=== PATIENT | female | born 1950 | race Caucasian/White ===

== ENCOUNTER → 2016-12-24 | Outpatient (CLI) | payer MEDICARE ==
--- NOTE | 2016-12-24 13:11 | XR ---
EXAMINATION TYPE: XR KUB DATE OF EXAM: 12/24/2016 11:30 AM CLINICAL DATA: 66 year-old female follow-up of bilateral lithotripsy, [facility] COMPARISON: None FINDINGS: Nonobstructive bowel gas pattern. There is mild stool within the ascending colon. Suggestion of bilateral calcific densities projecting at both sides of the midabdomen. Largest measur es 8 mm on the right. Densities within the pelvis likely represent tablets. Degenerated levoconvex scoliosis of the lumbar spine. IMPRESSION: Findings suggest bilateral nephrolithiasis, largest measuring 8 mm on the right.
== END | disposition home or self-care (01) ==
LOC: RADXRMAIN 11:13
PROVIDERS: ATTEND Urology
DX: N20.0 Calculus of kidney (principal)
CPT/HCPCS: 74000

== ENCOUNTER → 2016-12-28 | Outpatient (CLI) | payer MEDICARE ==
[~2016-12-28] MED LIST: DENOSUMAB 60 MG/ML 1 ML SYRINGE SQ ONE
[2016-12-28 13:56] VITALS: BP 113/58; PULSE 58; RESP 16; TEMP 98.4
== END | disposition home or self-care (01) ==
LOC: PROCWHC3 13:29
PROVIDERS: ATTEND Family Medicine
DX: M81.0 Age-related osteoporosis without current pathological fracture (principal)
CPT/HCPCS: 96372

== ENCOUNTER → 2017-02-03 | Outpatient (CLI) | payer MEDICARE ==
--- NOTE | 2017-02-03 16:49 | XR ---
EXAMINATION TYPE: XR KUB DATE OF EXAM: 02/03/2017 COMPARISON: 12/24/2016 HISTORY: Right-sided renal calculus. TECHNIQUE: 2 views FINDINGS: There is an 8 mm calcification over the lower pole right kidney. There is no sign of intest inal obstruction or pneumoperitoneum. There is mild lumbar levoscoliosis. There is no sign of a mass. There is a 4 mm calcification over the lower pole right kidney. IMPRESSION: Right renal calculi. No change compared to last exam. Nonacute abdomen.
== END | disposition home or self-care (01) ==
LOC: RADXRMAIN 16:28
PROVIDERS: ATTEND Urology
DX: N20.0 Calculus of kidney (principal)
CPT/HCPCS: 74000

== ENCOUNTER → 2017-02-03 | Outpatient (CLI) | payer MEDICARE ==
--- NOTE | 2017-02-04 13:12 | MM ---
Reason for exam: screening (asymptomatic). Last mammogram was performed 1 year and 1 month ago. History: Patient is postmenopausal. Physical Findings: A clinical breast exam by your physician is recommended on an annual basis and results should be correlated with mammographic findings. MG 3D Screening Mammo W/Cad Bilateral CC and MLO view(s) were taken. Prior study comparison: January 16, 2016, bilateral MG 3d screening mammo w/cad. January 14, 2015, bilateral MG diagnostic mammo w CAD MEG. February 13, 2014, bilateral MG diagnostic mammo w CAD MEG. There are scattered fibroglandular densities. No significant changes when compared with prior studies. ASSESSMENT: Negative, BI-RAD 1 RECOMMENDATION: Routine screening mammogram of both breasts in 1 year.
== END | disposition home or self-care (01) ==
LOC: RADMAMWWP 16:39
PROVIDERS: ATTEND Internal Medicine Geriatric Medicine
DX: Z12.31 Encounter for screening mammogram for malignant neoplasm of breast (principal)
CPT/HCPCS: 77063; G0202

== ENCOUNTER → 2017-04-06 | Outpatient (CLI) | payer MEDICARE ==
--- NOTE | 2017-04-06 11:03 | XR ---
EXAMINATION TYPE: XR KUB DATE OF EXAM: 04/06/2017 COMPARISON: 02/03/2017 INDICATION: Renal stones TECHNIQUE: Single view abdomen supine FINDINGS: There is a normal bowel gas pattern. Psoas margins are normal. No organomegaly is present. There is a 0.7 x 0. 5 cm calcification mid right kidney. Couple punctate calcifications are inferior pole right kidney. There are scattered small calcifications overlying the inferior pole left kidney. No definite ureteral stones are identified. Bullous are within the pelvis appear stable. IMPRESSION: 1. Stable bilateral renal stones. The largest in the right mid kidney measures 0.7 x 0.5 cm.
== END | disposition home or self-care (01) ==
LOC: RADXRMAIN 10:02
PROVIDERS: ATTEND Urology
DX: N20.0 Calculus of kidney (principal)
CPT/HCPCS: 74000

== ENCOUNTER → 2017-07-01 | Outpatient (CLI) | payer MEDICARE ==
[2017-07-01 11:42] VITALS: BP 127/63; PULSE 71; RESP 16; TEMP 98.1
== END | disposition home or self-care (01) ==
LOC: PROCWHC3 11:24
PROVIDERS: ATTEND Internal Medicine Geriatric Medicine
DX: M81.0 Age-related osteoporosis without current pathological fracture (principal)
CPT/HCPCS: 96372; J0897

== ENCOUNTER → 2017-07-20 | Outpatient (CLI) | payer MEDICARE ==
--- NOTE | 2017-07-20 08:24 | US ---
EXAMINATION TYPE: US abdomen complete DATE OF EXAM: 07/20/2017 COMPARISON: Abdominal x-ray April 06, 2017. CLINICAL HISTORY: Abnormal liver R94.5 function studies. EXAM MEASUREMENTS: Liver Length: 16.0 cm Gallbladder Wall: 0.4 cm CBD: 0.4 cm Spleen: 8.7 cm Right Kidney: 10.2 x 5.4 x 6.1 cm Left Kidney: 11.6 x 4.8 x 5.8 cm Pancreas: Obscured by bowel gas Liver: Increased attenuation Gallbladder: No stones seen Evidence for sonographic Dia's sign: no CBD: wnl Spleen: wnl Right Kidney: No hydronephrosis or masses seen Left Kidney: No hydronephrosis or masses seen Upper IVC: wnl Abd Aorta: Obscured by overlying bowel gas The visualized liver is heterogeneously hyperechoic. Evaluation for focal masses is suboptimal due t o the heterogeneity. The intrahepatic portion of the IVC and visualized portions of abdominal aorta a re within normal limits. Heart surface. By overlying bowel gas. There is no evidence of cholelithias is. Common bile duct is unremarkable. The pancreas is suboptimally evaluated due to shadowing from overlying bowel gas. The spleen is unremarkable. Kidneys are symmetric and free of hydronephrosis. Lobulation of left kidney is seen. Cannot exclude solid partial exophytic mass upper to mid pole leve l left kidney. Technologist notes a few nonshadowing hypoechoic foci in both kidneys could reflect re nal calculi IMPRESSION: 1. Bilateral renal calculi felt redemonstrated though better seen on x-ray, more numerous smaller radha culi in left kidney on x-ray are noted. Cannot rule out solid mass in left kidney. Further investigat ion with renal protocol contrast-enhanced CT or MRI is advised. 2. Heterogeneous hyperechoic appearance of liver is consistent with diffuse fatty infiltration or und erlying hepatocellular disease. Imaging guided random biopsy for tissue analysis can be performed if desired.
== END ==
LOC: RADUSWWP 07:04
PROVIDERS: ATTEND Internal Medicine Geriatric Medicine
DX: N20.0 Calculus of kidney (principal); R94.5 Abnormal results of liver function studies
CPT/HCPCS: 76700

== ENCOUNTER → 2017-12-22 | Outpatient (CLI) | payer MEDICARE ==
--- NOTE | 2017-12-22 15:50 | CT ---
EXAMINATION TYPE: CT abdomen wo/w con DATE OF EXAM: 12/22/2017 COMPARISON: NONE HISTORY: Abnormal liver enzymes. Cystic kidney disease. CT DLP: 1728 mGycm Automated exposure control for dose reduction was used. TECHNIQUE: Helical acquisition of images was performed from the lung bases through the top of iliac crest to include entire abdomen. CONTRAST: Performed with Oral Contrast and without and with IV Contrast, patient injected with 100 mL of Isovue M300. FINDINGS: LUNG BASES: No significant abnormality is appreciated. LIVER/GB: There is evidence of hepatic steatosis. Multiple layering gallstones. No hepatic lesions. PANCREAS: No significant abnormality is seen. SPLEEN: No significant abnormality is seen. ADRENALS: No significant abnormality is seen. KIDNEYS: Multiple nonobstructing renal calculi are seen bilaterally. No hydronephrosis is submitted. Renal parenchymal thinning noted within the mid to lower pole of the right kidney compatible with za or insult. No solid or cystic renal mass is detected at this time. BOWEL: No significant abnormality is seen. LYMPH NODES: No significant abnormality is seen. OSSEOUS STRUCTURES: No significant abnormality is seen. FREE AIR: No free air is visualized. IMPRESSION: 1. Bilateral nonobstructing nephrolithiasis. No hydronephrosis or renal masses seen. 2. Hepatic steatosis. 3. Small layering gallstones.
== END | disposition home or self-care (01) ==
LOC: RADCTMAIN 14:36
PROVIDERS: ATTEND Internal Medicine Geriatric Medicine
DX: N20.0 Calculus of kidney (principal); K76.0 Fatty (change of) liver, not elsewhere classified; K80.20 Calculus of gallbladder without cholecystitis without obstruction
CPT/HCPCS: 74170; Q9967

== ENCOUNTER → 2018-01-02 | Outpatient (CLI) | payer MEDICARE ==
[2018-01-02 09:31] VITALS: BP 114/74; PULSE 75; RESP 16; TEMP 98.2
== END | disposition home or self-care (01) ==
LOC: PROCWHC3 08:59
PROVIDERS: ATTEND Internal Medicine Geriatric Medicine
DX: Z53.9 Procedure and treatment not carried out, unspecified reason (principal)
CPT/HCPCS: 96372

== ENCOUNTER → 2018-02-09 | Outpatient (CLI) | payer MEDICARE ==
--- NOTE | 2018-02-10 11:03 | MM ---
Reason for exam: screening (asymptomatic). Last mammogram was performed 1 year ago. History: Patient is postmenopausal. Physical Findings: A clinical breast exam by your physician is recommended on an annual basis and results should be correlated with mammographic findings. MG 3D Screening Mammo W/Cad Bilateral CC and MLO view(s) were taken. Prior study comparison: February 03, 2017, bilateral MG 3d screening mammo w/cad. January 16, 2016, bilateral MG 3d screening mammo w/cad. The breast tissue is heterogeneously dense. This may lower the sensitivity of mammography. There is no discrete abnormality. No significant changes when compared with prior studies. ASSESSMENT: Negative, BI-RAD 1 RECOMMENDATION: Routine screening mammogram of both breasts in 1 year.
== END | disposition home or self-care (01) ==
LOC: RADMAMWWP 09:58
PROVIDERS: ATTEND Internal Medicine Geriatric Medicine
DX: Z12.31 Encounter for screening mammogram for malignant neoplasm of breast (principal)
CPT/HCPCS: 77063; 77067

== ENCOUNTER → 2018-04-19 | Outpatient (CLI) | payer MEDICARE ==
--- NOTE | 2018-04-19 15:12 | XR ---
EXAMINATION TYPE: XR chest 2V DATE OF EXAM: 04/19/2018 COMPARISON: 02/27/2016 INDICATION: Cough and congestion x1 month TECHNIQUE: Frontal and lateral views of the chest are obtained. FINDINGS: The heart size is normal. The pulmonary vasculature is normal. The lungs are clear. IMPRESSION: 1. No acute pulmonary process.
== END ==
LOC: RADXRMAIN 14:32
PROVIDERS: ATTEND Internal Medicine Geriatric Medicine
DX: J18.9 Pneumonia, unspecified organism (principal)
CPT/HCPCS: 71046

== ENCOUNTER → 2018-04-24 | Outpatient (CLI) | payer MEDICARE ==
--- NOTE | 2018-04-24 10:09 | CT ---
EXAMINATION TYPE: CT chest wo con DATE OF EXAM: 04/24/2018 COMPARISON: 11/10/2009, chest x-ray 04/19/2018 HISTORY: Pneumonia CT DLP: 504 mGycm. Automated Exposure Control for Dose Reduction was Utilized. TECHNIQUE: CT scan of the thorax is performed without IV contrast. FINDINGS: LUNGS: The lungs are grossly clear, there is no concerning parenchymal mass or nodule identified. T here is no pleural effusion or pneumothorax seen. The tracheobronchial tree is patent. Calcified gra nuloma within the left lower lobe. MEDIASTINUM: Lack of IV contrast is noted to limit evaluation for mediastinal and especially hilar ad enopathy. There are no definitive greater than 1 cm hilar or mediastinal lymph nodes. No cardiomega ly or pericardial effusion is seen. Atherosclerosis of the aorta noted. Coronary artery calcification noted. OTHER: Hypertrophic and degenerative change of the spine. Scoliotic curvature. Left-sided nephrolithi asis. Liver reduced in attenuation correlate for hepatic steatosis. IMPRESSION: 1. No acute intrathoracic process. 2. Left lower lobe calcified granuloma there are 3 left renal calculus 4. Hepatic steatosis
== END ==
LOC: RADCTMAIN 09:20
PROVIDERS: ATTEND Internal Medicine Geriatric Medicine
DX: J84.10 Pulmonary fibrosis, unspecified (principal)
CPT/HCPCS: 71250

== ENCOUNTER → 2018-12-15 | Outpatient (CLI) | payer MEDICARE ==
[2018-12-15 10:38] VITALS: BP 122/76; PULSE 60; RESP 18; TEMP 97.5
== END | disposition home or self-care (01) ==
LOC: PROCWHC3 10:27
PROVIDERS: ATTEND Internal Medicine Geriatric Medicine
DX: M81.0 Age-related osteoporosis without current pathological fracture (principal)
CPT/HCPCS: 96372; J0897

== ENCOUNTER → 2018-12-19 | Outpatient (CLI) | payer MEDICARE ==
--- NOTE | 2018-12-19 11:31 | XR ---
EXAMINATION TYPE: XR KUB DATE OF EXAM: 12/19/2018 10:00 AM CLINICAL HISTORY: Follow-up from right lithotripsy TECHNIQUE: Single supine KUB image of the abdomen is obtained. COMPARISON: 04/06/2017. FINDINGS: The previously seen 2-3 right renal calculi now appear as fragmented calculi. The largest o f these measures 7 mm and there are approximately 10 right renal calculi with approximately 7 left re nal calculi measuring up to 3 mm. The phleboliths in the pelvis and atherosclerosis appears similar t o the prior 2016. No new calcifications are seen along the courses of the ureters. No dilated bowel. Levoscoliosis of the lumbar spine is noted with moderate degenerative changes of the osseous structur es. IMPRESSION: Multiple bilateral renal calculi measuring up to 7 mm on the right and 3 mm on the left. The previously seen right renal calculi now appear fragmented. No new calculi along the courses of th e ureters.
== END | disposition home or self-care (01) ==
LOC: RADXRMAIN 09:42
PROVIDERS: ATTEND Urology
DX: N20.0 Calculus of kidney (principal)
CPT/HCPCS: 74018

== ENCOUNTER → 2018-12-27 | Outpatient (CLI) | payer MEDICARE ==
--- NOTE | 2018-12-27 15:32 | CT ---
EXAMINATION TYPE: CT abdomen pelvis wo con DATE OF EXAM: 12/27/2018 COMPARISON: 12/22/2017 HISTORY: Right flank pain with history of prior stones. CT DLP: 344.7 mGycm Examination of the solid and hollow viscera is limited given the lack of contrast. FINDINGS: LUNG BASES: No evidence for nodule. No evidence for infiltrate. LIVER/GB: There is evidence of cholelithiasis. No wall thickening. No space-occupying hepatic lesion. PANCREAS: No pancreatic mass identified. No inflammatory process seen. SPLEEN: No evidence for splenomegaly. No intrasplenic lesions seen. ADRENALS: No adrenal nodules identified. No evidence for thickening. KIDNEYS: No evidence for renal mass. Bilateral nephrolithiasis noted. Cluster of calculi lower pole r ight kidney with the largest calculus measuring 4 mm. Largest calculus upper pole right kidney measur es 7.1 mm. Largest calculus left kidney midpole measures 5.1 mm. Renal parenchymal thinning. BOWEL: Appendix has a normal appearance. No evidence of bowel obstruction. No inflammatory process. Lymph nodes: No evidence for adenopathy greater than 1 cm. Abdominal aorta: Atheromatous changes seen. No evidence for aneurysm. Genital organs: No significant abnormality. Other: No significant abnormality. IMPRESSION: 1. Bilateral nonobstructing nephrolithiasis.
== END ==
LOC: RADCTMAIN 11:23
PROVIDERS: ATTEND Urology
DX: N20.0 Calculus of kidney (principal); Z91.041 Radiographic dye allergy status
CPT/HCPCS: 74176

== ENCOUNTER → 2019-03-29 | Outpatient (CLI) | payer MEDICARE ==
--- NOTE | 2019-04-03 09:43 | MM ---
Reason for exam: screening (asymptomatic). Last mammogram was performed 1 year and 2 months ago. History: Patient is postmenopausal. Physical Findings: A clinical breast exam by your physician is recommended on an annual basis and results should be correlated with mammographic findings. MG 3D Screening Mammo W/Cad Bilateral CC and MLO view(s) were taken. Prior study comparison: February 09, 2018, bilateral MG 3d screening mammo w/cad. February 03, 2017, bilateral MG 3d screening mammo w/cad. There are scattered fibroglandular densities. There is chronic nodularity in the left breast on the MLO view. No significant changes when compared with prior studies. ASSESSMENT: Benign, BI-RAD 2 RECOMMENDATION: Routine screening mammogram of both breasts in 1 year.
== END | disposition home or self-care (01) ==
LOC: RADMAMWWP 12:06
PROVIDERS: ATTEND Internal Medicine Geriatric Medicine
DX: Z12.31 Encounter for screening mammogram for malignant neoplasm of breast (principal)
CPT/HCPCS: 77063; 77067

== ENCOUNTER → 2019-04-04 | Outpatient (CLI) | payer MEDICARE ==
[2019-04-04 16:51] LABS: African American GFR (CKD) 75.1 (60.0-200.0); Calcium 9.4 mg/dL (8.7-10.3); Phosphorus 4.2 mg/dL (2.4-5.1); Potassium 4.2 mmol/L (3.5-5.5); Uric Acid 4.9 mg/dL (2.9-7.7)
== END | disposition home or self-care (01) ==
LOC: LABWHC1 07:33
PROVIDERS: ATTEND Urology
DX: N20.0 Calculus of kidney (principal)
CPT/HCPCS: 36415; 82310; 82374; 82435; 82565; 83735; 84100; 84132; 84295; 84550

== ENCOUNTER → 2019-06-18 | Outpatient (CLI) | payer MEDICARE ==
--- NOTE | 2019-06-19 04:16 | BD ---
EXAMINATION TYPE: Axial Bone Density DATE OF EXAM: 06/18/2019 COMPARISON: 07/02/2013 CLINICAL HISTORY: 68-year-old female postmenopausal screening Height: 61 IN Weight: 161 LBS RISK FACTORS HISTORY OF: Family History of Osteoporosis: YES MOTHER AND SISTER Active: YES Diet low in dairy products/other sources of calcium: YES Postmenopausal woman: AGE 53 Lost more than 2 inches in height since high school: YES 3" MEDICATIONS: Osteoporosis Medications: YES Which medication: Prolia How Lon+ YEARS(PT TOOK RECLAST AND FOSAMAX PREVIOUSLY Additional Medications: CALCIUM, VIT D, RECLAST, FIBER WELL,CENTRUM SILVER, LEXAPRO, ASPIRIN, BIOTIN, PRILOSEC, LOTREL, PRAVASTATIN, PROBIOTIC, POTASSIUM CITRATE EXAM MEASUREMENTS: Bone mineral densitometry was performed using the [employer] System. Bone mineral density as measured about the Lumbar spine is: ----- L1-L4(G/cm2): 1.294 T Score Values are as follows: ----- L2: -0.4 ----- L3: 1.4 ----- L4: 2.4 ----- L1-L4: 0.9 Bone mineral density has: Increased 11.1% since study of: 07/02/2013 Bone mineral density about the R hip (g/cm2): 0.760 Bone mineral density about the L hip (g/cm2): 0.766 T Score values are as follows: -----R Neck: -2.0 -----L Neck: -2.0 -----R Total: -1.4 -----L Total: -1.5 Bone mineral density has: Increased 0.1% since study of: 07/02/2013 IMPRESSION: Osteopenia (T Score between -2.5 and -1). There is slightly increased risk of fracture and the patient may be considered for treatment. Re-Screen 2-5 years. NOTE: T-SCORE=SD OF THE YOUNG ADULT MEAN.
== END | disposition home or self-care (01) ==
LOC: RADBDWWP 10:44
PROVIDERS: ATTEND Internal Medicine Geriatric Medicine
DX: M85.88 Other specified disorders of bone density and structure, other site (principal); R92.8 Other abnormal and inconclusive findings on diagnostic imaging of breast
CPT/HCPCS: 77080

== ENCOUNTER → 2019-06-18 | Outpatient (CLI) | payer MEDICARE ==
[2019-06-18 10:28] VITALS: BP 104/67; PULSE 67; RESP 16; TEMP 98.3
== END ==
LOC: PROCWHC3 10:02
PROVIDERS: ATTEND Internal Medicine Geriatric Medicine
DX: M81.0 Age-related osteoporosis without current pathological fracture (principal)
CPT/HCPCS: 96372; J0897

== ENCOUNTER → 2019-12-13 | Outpatient (CLI) | payer MEDICARE ==
--- NOTE | 2019-12-13 15:41 | XR ---
EXAMINATION TYPE: XR KUB DATE OF EXAM: 12/13/2019 3:25 PM CLINICAL HISTORY: Bilateral renal stones. TECHNIQUE: Single supine KUB image of the abdomen is obtained. COMPARISON: CT abdomen and pelvis December 27, 2018. Abdominal x-ray December 19, 2018. FINDINGS: Redemonstration of bilateral renal calculi approximately 20 small scattered stones through the left kidney and 10 scattered calculi through the right kidney on current study. Larger calculi on the right up to 8 mm lower pole level and 10 and 11 mm upper pole level. Some progression in number felt present from prior studies. Underlying S-shaped scoliosis with multilevel spurring and disc space narrowing. Scattered pelvic phl eboliths. IMPRESSION: Bilateral nephrolithiasis as detailed above.
== END | disposition home or self-care (01) ==
LOC: RADXRMAIN 15:13
PROVIDERS: ATTEND Urology
DX: N20.0 Calculus of kidney (principal)
CPT/HCPCS: 74018

== ENCOUNTER → 2019-12-18 | Outpatient (CLI) | payer MEDICARE ==
[~2019-12-18] MED LIST changes: +DENOSUMAB 60 MG/ML 1 ML SYRINGE SQ NR; -DENOSUMAB 60 MG/ML 1 ML SYRINGE SQ ONE
[2019-12-18 12:59] VITALS: BP 106/70; PULSE 78; RESP 18; TEMP 98
== END | disposition home or self-care (01) ==
LOC: PROCWHC3 12:48
PROVIDERS: ATTEND Internal Medicine Geriatric Medicine
DX: M81.0 Age-related osteoporosis without current pathological fracture (principal)
CPT/HCPCS: 96372; J0897

== ENCOUNTER → 2020-04-04 | Outpatient (CLI) | payer MEDICARE ==
--- NOTE | 2020-04-09 09:10 | MM ---
Reason for exam: screening (asymptomatic). Last mammogram was performed 1 year ago. History: Patient is postmenopausal. Physical Findings: A clinical breast exam by your physician is recommended on an annual basis and results should be correlated with mammographic findings. MG 3D Screening Mammo W/Cad Bilateral CC and MLO view(s) were taken. Prior study comparison: March 29, 2019, bilateral MG 3d screening mammo w/cad. February 09, 2018, bilateral MG 3d screening mammo w/cad. There are scattered fibroglandular densities. No significant changes when compared with prior studies. ASSESSMENT: Benign, BI-RAD 2 RECOMMENDATION: Routine screening mammogram of both breasts in 1 year.
== END | disposition home or self-care (01) ==
LOC: RADMAMWWP 08:22
PROVIDERS: ATTEND Internal Medicine Geriatric Medicine
DX: Z12.31 Encounter for screening mammogram for malignant neoplasm of breast (principal)
CPT/HCPCS: 77063; 77067

== ENCOUNTER → 2020-04-10 | Outpatient (CLI) | payer MEDICARE ==
--- NOTE | 2020-04-10 10:23 | XR ---
EXAMINATION TYPE: XR KUB DATE OF EXAM: 04/10/2020 HISTORY: Pain Comparison: 12/13/19 Single KUB is submitted for interpretation. Findings: Right renal calculi: Numerous calcifications seen too numerous to count. Right ureteral calculi: None Visualized. Left renal calculi: Numerous calcifications seen too numerous to count. Left ureteral calculi: None Visualized. Pelvic calcifications: None Visualized. Bowel gas pattern is unremarkable. No free air. No mass effects. IMPRESSION: 1. Bilateral nephrolithiasis.
== END | disposition home or self-care (01) ==
LOC: RADXRMAIN 09:51
PROVIDERS: ATTEND Urology
DX: N20.0 Calculus of kidney (principal)
CPT/HCPCS: 74018

== ENCOUNTER → 2020-06-23 | Outpatient (CLI) | payer MEDICARE ==
[2020-06-23 08:42] VITALS: BP 116/77; PULSE 73; RESP 16
== END | disposition home or self-care (01) ==
LOC: PROCWHC3 08:32
PROVIDERS: ATTEND Internal Medicine Geriatric Medicine
DX: M81.0 Age-related osteoporosis without current pathological fracture (principal)
CPT/HCPCS: 96372; J0897

== ENCOUNTER → 2020-12-23 | Outpatient (CLI) | payer MEDICARE ==
[2020-12-23 07:43] VITALS: BP 107/56; PULSE 69; RESP 15; TEMP 97.7
== END | disposition home or self-care (01) ==
LOC: PROCWHC3 07:32
PROVIDERS: ATTEND Internal Medicine Geriatric Medicine
DX: M81.0 Age-related osteoporosis without current pathological fracture (principal)
CPT/HCPCS: 96372; J0897

== ENCOUNTER → 2020-12-23 | Outpatient (CLI) | payer MEDICARE ==
--- NOTE | 2020-12-23 11:04 | XR ---
EXAMINATION TYPE: XR KUB DATE OF EXAM: 12/23/2020 8:07 CLINICAL HISTORY: Bilateral renal calculi TECHNIQUE: Single supine KUB image of the abdomen is obtained. COMPARISON: 04/10/2020 . FINDINGS: Nonspecific, nonobstructive bowel gas pattern. There are multiple bilateral renal calculi t hroughout the kidneys. One of the largest at the right upper pole measures 9 mm, stable. 5 mm calcifi cations project at the L2-3 level on the left suggestive of possible ureteral calculi. Multiple presu med pelvic calcified phleboliths. Degenerative changes of the lumbar spine with levocurvature. Mild d egenerative changes of the hips. IMPRESSION: 1. Numerous bilateral renal calculi are visualized. 2. 2 5 mm adjacent calculi are seen projecting at the left L2-3 level. These are suggestive of possib le ureteral calculi.
== END | disposition home or self-care (01) ==
LOC: RADXRMAIN 07:50
PROVIDERS: ATTEND Urology
DX: N20.0 Calculus of kidney (principal)
CPT/HCPCS: 74018

== ENCOUNTER → 2021-02-04 | Outpatient (CLI) | payer MEDICARE ==
[2021-02-04 08:31] VITALS: BP 113/75; PULSE 65; RESP 18; TEMP 98.1
--- NOTE | 2021-02-04 09:00 | P.PAINCN ---
History of Present Illness - Reason for Consult Consult date: 02/04/21 - History of Present Illness This is 70 years old female with a chronic history of severe low back pain, with radiations to the lower extremity, started more than 5 years ago, patient diagnosed with lumbar degenerative disc disease, lumbar spondylosis with lumbar facet arthropathy, was treated at [facility], (Dr Aguilera, and Dr. Graf, ) she had, excellent response to RFA of the medial branch lumbar a sonia, and the last one was done, june of 2020, the RFA helped her low back pain significantly, and patient had transforaminal epidural steroid injection which helped her lower extremity pain, the patient complaining of severe low back pain which is increased with any activity interfere with the quality of life, patient tried home exercise, continued to have severe pain, denies any motor or sensory deficit she denies any fever or night sweats which she denies any change in the bowel movement or urination Past Medical History Past Medical History: GERD/Reflux, Hyperlipidemia, Hypertension Additional Past Medical History / Comment(s): back pain, hx migraines, kidney stones,osteoporosis History of Any Multi-Drug Resistant Organisms: None Reported Past Surgical History: Section, Orthopedic Surgery Additional Past Surgical History / Comment(s): rt wrist, 8 surgeries for kidney stones,pain procedures,jairo cataracts. Past Anesthesia/Blood Transfusion Reactions: Motion Sickness Smoking Status: Never smoker - Past Family History Father Family Medical History: Myocardial Infarction ([place]) Additional Family Medical History / Comment(s): multiple MIs Medications and Allergies Home Medications Medication Instructions Recorded Confirmed Type Aspirin 81 mg PO DAILY 06/10/14 02/04/21 History Pravastatin Sodium [Pravachol] 20 mg PO HS 06/10/14 02/04/21 History Calcium Carbonate [Calcium] 600 mg PO DAILY 02/25/16 02/04/21 History Cholecalciferol [Vitamin D3 (25 1,000 unit PO DAILY 02/25/16 02/04/21 History Mcg = 1000 Iu)] Celecoxib [CeleBREX] 100 mg PO BID 12/23/20 02/04/21 History Biotin 5 mg PO DAILY 02/03/21 02/04/21 History Denosumab [Prolia] 60 mg SQ Q180D 02/03/21 02/04/21 History Escitalopram [Lexapro] 10 mg PO DAILY 02/03/21 02/04/21 History Lit Control Ph Balance Supp 1 tab PO BID 02/03/21 02/04/21 History Multivit-Min/Iron/Folic/Lutein 1 tab PO DAILY 02/03/21 02/04/21 History [Centrum Silver Women Tablet] Omeprazole [PriLOSEC] 20 mg PO BID 02/03/21 02/04/21 History Spironolactone [Aldactone] 12.5 mg PO DAILY 02/03/21 02/04/21 History Allergies Allergy/AdvReac Type Severity Reaction Status Date / Time Iodinated Contrast Media Allergy Rash/Hives Verified 02/03/21 15:47 Physical Exam Vitals: Vital Signs Temp Pulse Resp BP Pulse Ox 02/04/21 08:18 98.1 F 65 18 113/75 96 Intake and Output 02/03/21 02/04/21 02/04/21 22:59 06:59 14:59 Other: Weight 70.307 kg Physical Examinations : -Constitutiona : Cooperative , not in acute distress . -HEENT : nech : supple , no Lymphadenopathy , normal thyroid size . : eyes : no ptosis , no icterus, no photophobia . - neurologic : Cranial nerve II to XII intact , no focal neurological deffecit . -psychatric : alert , oriented X 3 , appropriate affect , intact judgment and insight . -Lymphatic : no Lymphadenopathy . - musculoskeltal : Lumber spine moter stegnth lower extremities ,thigh and legs 5/5 Right side , 5/5 Left side deep tendon reflexes : normal Knee Jerk , normal ankle Jerk lumber facet Loading Test =positive Right , positive Left Range of motion of the lumbar spine Flexion 30 degrees, extension 10 degrees strait leg raising test = positive at 60 degree Fabere test= positive Right , and positive LT . Results Comments: MRI of the lumbar spine multilevel lumbar degenerative disc disease and multilevel lumbar facet arthropathy Assessment and Plan Plan: Assessment and plan=1-lumbar spondylosis with lumbar facet arthropathy without myelopathy. 2-Lumbar degenerative disc disease. She had excellent response to RFA of the medial branch lumbar area , last year and she would be good candidate to have a repeat RFA Scheduled for RFA medial branch at L3, L4, L5 bilateral Time with Patient: Greater than 30 PQRS Measure Charge Sheet Measure #130: Documentation of Current Meds in Medical Chart: Patient's medications documented in chart Measure #226: Tobacco Use: Screen & Cessation Intervention: Pt not a tobacco user Measure #111: Pneumonia Vaccination: Pneumococcal vaccine administered or previously received Measure #47: Advance Care Plan: Advance care planning discussed & documented, pt chose/unable to give Measure #412: Opioid Treatment Agreement: No documentation of signed opioid treatment agreement Measure #408: Opioid Therapy Follow-up Evaluation: Patient had NO f/u eval minimum every 3 months during opioid therapy Measure #317: Preventitive Care & Scrn High Bld Press & F/U: Normal blood pressure, f/u not required Measure #128: Body Mass Index (BMI) Screening & Follow-up: BMI documented ABOVE normal parameters - f/u documented Measure #131: Pain Assessment & Follow-up: Pain positive & plan documented, Follow-up scheduled Measure #431: Unhealthy Alcohol Use Preventative Care & Scrn: Patient not identified as an unhealthy alcohol user PQRS Narrative: Smoking Status Never smoker Blood Pressure 113/75 Pain Intensity [Back] 4 Scale Used Numeric (1 - 10) Home Medications: Ambulatory Orders Aspirin 81 mg PO DAILY 06/10/14 Pravastatin Sodium [Pravachol] 20 mg PO HS 06/10/14 Calcium Carbonate [Calcium] 600 mg PO DAILY 02/25/16 Cholecalciferol [Vitamin D3 (25 Mcg = 1000 Iu)] 1,000 unit PO DAILY 02/25/16 Celecoxib [CeleBREX] 100 mg PO BID 12/23/20 Biotin 5 mg PO DAILY 02/03/21 Denosumab [Prolia] 60 mg SQ Q180D 02/03/21 Escitalopram [Lexapro] 10 mg PO DAILY 02/03/21 Lit Control Ph Balance Supp 1 tab PO BID 02/03/21 Multivit-Min/Iron/Folic/Lutein [Centrum Silver Women Tablet] 1 tab PO DAILY 02/03/21 Omeprazole [PriLOSEC] 20 mg PO BID 02/03/21 Spironolactone [Aldactone] 12.5 mg PO DAILY 02/03/21
== END ==
LOC: PNWHC3 08:10
PROVIDERS: ATTEND Specialist
DX: M47.816 Spondylosis without myelopathy or radiculopathy, lumbar region (principal); M51.36 Other intervertebral disc degeneration, lumbar region; K21.9 Gastro-esophageal reflux disease without esophagitis; E78.5 Hyperlipidemia, unspecified; I10 Essential (primary) hypertension; Z91.041 Radiographic dye allergy status; Z79.899 Other long term (current) drug therapy
CPT/HCPCS: 99211

== ENCOUNTER 2021-03-06 07:57 | Day surgery (SDC) | payer MEDICARE ==
[2021-03-04 14:09] VITALS: BMI 28.3
[~2021-03-06 07:57] MED LIST changes: -DENOSUMAB 60 MG/ML 1 ML SYRINGE SQ NR; +LACTATED RINGERS 1,000 ML IV SCH
[2021-03-06 08:27] VITALS: TEMP 97.7
[2021-03-06] MEDS ORDERED: LIDOCAINE 1% (10MG/ML) FOR IV START INTRADERMA ONE (08:31)
[2021-03-06] MEDS ORDERED: fentaNYL (PF) 50 MCG/ML 2 ML AMP ONE (08:34)
[2021-03-06] MEDS ORDERED: methylPREDNISolone ACETATE 40 MG/ML 1 ML VIAL ONE (08:34)
[2021-03-06] MEDS ORDERED: ROPIVACAINE 5MG/ML 20ML VIAL ONE (08:34)
[2021-03-06] MEDS ORDERED: MIDAZOLAM 2 MG/2 ML VIAL ONE (08:34)
--- NOTE | 2021-03-06 09:07 | P.PCN ---
Date of Procedure: 03/06/21 Procedure(s) Performed: PREOPERATIVE DIAGNOSIS: 1-Lumbar Spondylosis with Facet Arthropathy without myelopathy. 2- Lumber degenerative disc disease. POSTOPERATIVE DIAGNOSIS: 1- Lumbar Spondylosis with Facet Arthropathy without myelopathy. 2- Lumber degenerative disc disease. PROCEDURES : Bilateral Radiofrequency thermocoagulation, L3 , L4 , and L5 medial branch, with fluoroscopic guidance (fluoroscopy images available in the radiology department) ( to denervate the facet joint at L4-5 ,and L5-S1 levels ). ANESTHESIA: Monitored anesthesia care aspirin anesthesia department . EBL: Minimal PROCEDURE INDICATION: The patient with low back pain secondary to lumbar facet arthropathy who had more than 50% relief of her pain with previous diagnostic lumbar medial branch block with bupivacaine. PROCEDURE DESCRIPTION / TECHNIQUE: The patient was seen and identified in the preoperative area. Risks, benefits, complications, including but not limited to risk of infection ,bleeding , allergic reactions to the medications and no complete pain releife , and alternatives were discussed with the patient, the patient agreed to proceed with the procedure and signed the consent. IV was started. Vital signs remained stable throughout the procedure. Patient was taken to the OR and time out was completed. The patient was placed in the prone position on the procedure table. The lumber area was prepped and draped in the usual sterile fashion. . Vital signs were closely monitored during the procedure .IV sedation was used during the procedure to decrease patients anxiety. Using AP and then oblique fluoroscopy, the ``eye of the Bridger dog correspondi ng to the connection between the superior and transverse articular processes of right L3, L4, and L5 were identified, marked, and localized with 1% lidocaine. Subsequently, a 18 -xe radiofrequency cannula with a 10-mm active tip was advanced guided by fluoroscopy to each of the``eyes of the Bridger dog at right L3, L4, and L5. Each site then underwent sensory testing at 50 Hz and 0 to 1 volt and motor testing at 2.5 Hz and 0 to 3 volt with local stimulation, but no radicular symptoms down the legs. Thereafter each sites underwent radiofrequency thermocoagulation at 80 degrees celsius for 90 seconds after injecting 0.5 ml of PF Ropivacaine 1ml, then after the thermocoagulation done , 1 ml of the block solution containing Depo-Medrol 40 mg and 3 ml of Ropivacaine 0.5% was injected at the right L3 , L4 , and L5 , levels after negative aspiration of CSF and blood and with no paresthesias. Cannulas were retracted while injecting lidocaine 1% until the needle is out. The same procedure was repeated at the level of Left L3, L4, and L5 levels. At the end of the procedure, the skin was cleansed and bandages were applied. COMPLICATIONS: No acute complications. DISPOSITION / PLANS: The patient was placed in a supine position and transferred to the recovery area in a stable condition for observation and was discharged from the recovery room after meeting discharge criteria. Home discharge instructions given to the patient by the staff. The patient was reexamined prior to discharge. The patient will schedule a follow up in the clinic in 2-4 weeks.
[2021-03-06] MEDS ORDERED: IV FLUID CONTINUATION 700 ML IV ONE (09:10)
[2021-03-06 09:14] VITALS: RESP 16
[2021-03-06 09:26] VITALS: BP 105/65; PULSE 60
--- NOTE | 2021-03-06 09:36 | FL ---
Fluoroscopy INDICATION: Pain FINDINGS: Fluoroscopy time: 13 seconds. Images obtained: 7. IMPRESSIONS: 1. Documentation of fluoroscopy.
== END 2021-03-06 09:47 | disposition home or self-care (01) ==
LOC: ORPAIN 07:57
PROVIDERS: ATTEND Specialist
DX: M47.816 Spondylosis without myelopathy or radiculopathy, lumbar region (principal); M51.36 Other intervertebral disc degeneration, lumbar region; I10 Essential (primary) hypertension; E78.5 Hyperlipidemia, unspecified; G43.909 Migraine, unspecified, not intractable, without status migrainosus; K21.9 Gastro-esophageal reflux disease without esophagitis; Z79.82 Long term (current) use of aspirin
CPT/HCPCS: 64635; 64636; J2250; J1030; J3010; J2795

== ENCOUNTER → 2021-03-27 | Outpatient (CLI) | payer MEDICARE ==
--- NOTE | 2021-03-27 12:56 | XR ---
KUB HISTORY: Nephrolithiasis Frontal KUB and 2 images correlated to prior exam 12/23/2020 Multiple calcifications are present within both kidneys as on prior exam. Largest calcification in th e upper pole the right is 11 mm. There are at least 10-15 calcifications on the left and 10-15 calcif ications on the right. There is a scoliosis with degenerative disc disease. Probable vascular calcifi cations are present within the pelvis. IMPRESSION: Bilateral nephrolithiasis similar to prior exam.
== END | disposition home or self-care (01) ==
LOC: RADXRMAIN 09:32
PROVIDERS: ATTEND Urology
DX: N20.0 Calculus of kidney (principal)
CPT/HCPCS: 74018

== ENCOUNTER → 2021-03-27 | Outpatient (CLI) | payer MEDICARE ==
--- NOTE | 2021-03-27 17:41 | CT ---
EXAMINATION TYPE: CT abdomen pelvis wo con DATE OF EXAM: 03/27/2021 COMPARISON: 04/29/2019 HISTORY: Bilateral flank pain x1 week. CT DLP: 440.8 mGycm Automated exposure control for dose reduction was used. Lung bases are clear. There is no pleural effusion. Heart size is normal. There is no pericardial eff usion. There is minimal coronary artery calcification. Liver spleen stomach pancreas appear intact. There are multiple calcified gallstones. The bile ducts are nondilated. There is no adrenal mass. There are numerous bilateral renal calculi that measure up to 6 mm. There i s variable cortical thinning in the right kidney consistent with scarring. There is a 6 mm calculus a t the left ureteropelvic junction. There is minimal fullness of the left renal collecting system. The re is also some fullness of the right ureter and 5 mm obstructing calculus in the lower right ureter at the S1 level. There is also 2 additional 6 mm calculi in the lower right ureter at the inferior sa basil level. There are multiple sigmoid diverticula. I see no diverticulitis. There is no inguinal hernia. Bladder distends smoothly. There is no pelvic mass. Appendix is not definitely seen. There is no sign of thi ckened appendix. There is mild lumbar levoscoliosis. There is multilevel lumbar spondylotic changes. The bony pelvis is intact. IMPRESSION: Numerous bilateral renal calculi. Obstructing several calculi in the lower right ureter. Mild hydrone phrosis. Obstructing calculus at the left ureteropelvic junction. Obstruction appears new compared to old exam. Calculi increased in size and number compared to old exam. Deformity of the right kidney consistent with scarring and chronic pyelonephritis. Cholelithiasis. Sigmoid diverticulosis.
== END | disposition home or self-care (01) ==
LOC: RADCTMAIN 16:41
PROVIDERS: ATTEND Urology
DX: N13.2 Hydronephrosis with renal and ureteral calculous obstruction (principal); K80.20 Calculus of gallbladder without cholecystitis without obstruction; K57.30 Diverticulosis of large intestine without perforation or abscess without bleeding
CPT/HCPCS: 74176

== ENCOUNTER → 2021-03-30 | Outpatient (CLI) | payer MEDICARE ==
[2021-03-30 13:11] VITALS: BP 112/71; PULSE 74; RESP 18; TEMP 98.1
--- NOTE | 2021-03-30 13:20 | P.PAINPG ---
Subjective Progress Note Date: 03/30/21 This is 70 years old female with a chronic history of severe low back pain, with radiations to the lower extremity, started more than 5 years ago, patient diagnosed with lumbar degenerative disc disease, lumbar spondylosis with lumbar facet arthropathy, was treated at [facility], (Dr Aguilera, and Dr. Graf, ) she had, excellent response to RFA of the medial branch lumbar area, and the last one was done, june of 2020, the RFA helped her low back pain significantly, and patient had transforaminal epidural steroid injection which helped her lower extremity pain, the patient complaining of severe low back pain which is increased with any activity interfere with the quality of l bakari, patient tried home exercise, continued to have severe pain, denies any motor or sensory deficit she denies any fever or night sweats which she denies any change in the bowel movement or urination. We repeated bilateral L4-L5 and L5-S1 radiofrequency ablation for her. Patient says that overall she had good relief from the ablation. About 70-80% relief. This is the third ablation she had, commenting that the second ablation that she received at another center causes her to have significantly worsening pain. She asked why that is. I explained to her the concept of possible muscle soreness or neuritis secondary curve from a radiofrequency ablation and having general is very difficult to prevent, but did note that these complications are usually pretty rare. She also had a bilateral L5-S1 transforaminal epidural steroid injection with Dr. Aguilera in December of this year which was helpful, she was wondering if she could repeat those with us as needed. Physical Examinations : -Constitutiona : Cooperative , not in acute distress . -HEENT : nech : supple , no Lymphadenopathy , normal thyroid size . : eyes : no ptosis , no icterus, no photophobia . - neurologic : Cranial nerve II to XII intact , no focal neurological deffecit . -psychatric : alert , oriented X 3 , appropriate affect , intact judgment and insight . -Lymphatic : no Lymphadenopathy . - musculoskeltal : Lumber spine moter stegnth lower extremities ,thigh and legs 5/5 Right side , 5/5 Left side deep tendon reflexes : normal Knee Jerk , normal ankle Jerk lumber facet Loading Test =negative Range of motion of the lumbar spine Flexion 30 degrees, extension 10 degrees strait leg raising test = negative Fabere test= negative Results Comments: MRI of the lumbar spine multilevel lumbar degenerative disc disease and multilevel lumbar facet arthropathy Assessment and Plan Plan: Assessment and plan=1-lumbar spondylosis with lumbar facet arthropathy without myelopathy. 2-Lumbar degenerative disc disease. Doing well at this time, she'll follow-up as needed. I told her she can call us if she would like to repeat her bilateral L5-S1 transforaminal epidural steroid injections. I have spent 25 minutes on patient care today. The time was used to review the medical records including relevant urine studies and prescription history, review of the available imaging, evaluation and examination of the patient, coordination of care with the medical staff and if applicable referring physicians, as well as creation of the medical record. PQRS Measure Charge Sheet Measure #130: Documentation of Current Meds in Medical Chart: Patient's medications documented in chart Measure #226: Tobacco Use: Screen & Cessation Intervention: Pt not a tobacco user Measure #111: Pneumonia Vaccination: Pneumococcal vaccine administered or previously received Measure #47: Advance Care Plan: Advance care planning discussed & documented, pt chose/unable to give Measure #412: Opioid Treatment Agreement: No documentation of signed opioid treatment agreement Measure #408: Opioid Therapy Follow-up Evaluation: Patient had NO f/u eval minimum every 3 months during opioid therapy Measure #317: Preventitive Care & Scrn High Bld Press & F/U: Normal blood pressure, f/u not required Measure #128: Body Mass Index (BMI) Screening & Follow-up: BMI documented ABOVE normal parameters - f/u documented Measure #131: Pain Assessment & Follow-up: Pain positive & plan documented, Follow-up scheduled Measure #431: Unhealthy Alcohol Use Preventative Care & Scrn: Patient not identified as an unhealthy alcohol user PQRS Narrative: PQRS Measure Charge Sheet PQRS Narrative: Smoking Status Never smoker Pain Intensity [Back] 4 Scale Used Numeric (1 - 10) Hx Alcohol Use (MH) Yes Home Medications: Ambulatory Orders Aspirin 81 mg PO DAILY 06/10/14 Pravastatin Sodium [Pravachol] 20 mg PO HS 06/10/14 Calcium Carbonate [Calcium] 600 mg PO DAILY 02/25/16 Cholecalciferol [Vitamin D3 (25 Mcg = 1000 Iu)] 1,000 unit PO DAILY 02/25/16 Celecoxib [CeleBREX] 100 mg PO BID 12/23/20 Biotin 5 mg PO DAILY 02/03/21 Denosumab [Prolia] 60 mg SQ Q180D 02/03/21 Escitalopram [Lexapro] 10 mg PO DAILY 02/03/21 Lit Control Ph Balance Supp 1 tab PO BID 02/03/21 Multivit-Min/Iron/Folic/Lutein [Centrum Silver Women Tablet] 1 tab PO DAILY 02/03/21 Omeprazole [PriLOSEC] 20 mg PO BID 02/03/21 Spironolactone [Aldactone] 12.5 mg PO DAILY 02/03/21 Controlled Substance Measures - Controlled Substance Measures Is patient prescribed a controlled substance at discharge?: No
== END ==
LOC: PNWHC3 12:58
PROVIDERS: ATTEND Anesthesiology
DX: M47.816 Spondylosis without myelopathy or radiculopathy, lumbar region (principal); M51.36 Other intervertebral disc degeneration, lumbar region; Z91.041 Radiographic dye allergy status
CPT/HCPCS: 99211

== ENCOUNTER 2021-04-01 08:59 | Day surgery (SDC) | payer MEDICARE ==
--- NOTE | 2021-03-31 20:50 | P.GSHP ---
History of Present Illness H&P Date: 03/31/21 70 yo female with a history of medullary sponge kidney and stones. about 10 days ago she started having let flank pain A kub showed bilateral renal stones without obvious ureteral stones. Because of persistent pain a ct scan was obtained identifying a 6 mm left upj stone. there may also be right ureteral stones. tani the let upj stone is symptomatic she comes for left ureteroscopy with laser lithotripsy. I wll also do a right retrograde pyelogram and possible ureterscopy f there are stones in the right ureter too - Constitutional Constitutional: Denies chills, Denies fever - EENT Eyes: denies blurred vision, denies pain Ears, nose, mouth and throat: Denies headache, Denies sore throat - Cardiovascular Cardiovascular: Denies chest pain, Denies shortness of breath - Respiratory Respiratory: Denies cough, Denies 7 - Gastrointestinal Gastrointestinal: Denies abdominal pain, Denies diarrhea, Denies nausea, Denies vomiting - Genitourinary (Female) Genitourinary: Denies dysuria, Denies hematuria - Genitourinary (Male) Genitourinary: Denies dysuria, Denies hematuria - Musculoskeletal Musculoskeletal: Denies myalgias - Integumentary Integumentary: Denies pruritus, Denies rash - Neurological Neurological: Denies numbness, Denies weakness - Psychiatric Psychiatric: Denies anxiety, Denies depression - Endocrine Endocrine: Denies fatigue, Denies weight change Past Medical History Past Medical History: GERD/Reflux, Hyperlipidemia, Hypertension Additional Past Medical History / Comment(s): back pain, hx migraines, kidney stones,osteoporosis History of Any Multi-Drug Resistant Organisms: None Reported Past Surgical History: Section, Orthopedic Surgery Additional Past Surgical History / Comment(s): rt wrist, 8 surgeries for kidney stones,pain procedures,jairo cataracts. Past Anesthesia/Blood Transfusion Reactions: Motion Sickness Past Psychological History: No Psychological Hx Reported Smoking Status: Never smoker Past Alcohol Use History: Occasional Past Drug Use History: None Reported - Past Family History Father Family Medical History: Myocardial Infarction ([place]) Additional Family Medical History / Comment(s): multiple MIs Medications and Allergies Home Medications Medication Instructions Recorded Confirmed Type Aspirin 81 mg PO DAILY 06/10/14 03/30/21 History Pravastatin Sodium [Pravachol] 20 mg PO HS 06/10/14 03/30/21 History Calcium Carbonate [Calcium] 600 mg PO DAILY 02/25/16 03/30/21 History Cholecalciferol [Vitamin D3 (25 1,000 unit PO DAILY 02/25/16 03/30/21 History Mcg = 1000 Iu)] Celecoxib [CeleBREX] 100 mg PO BID 12/23/20 03/30/21 History Biotin 5 mg PO DAILY 02/03/21 03/30/21 History Denosumab [Prolia] 60 mg SQ Q180D 02/03/21 03/30/21 History Escitalopram [Lexapro] 10 mg PO DAILY 02/03/21 03/30/21 History Lit Control Ph Balance Supp 1 tab PO BID 02/03/21 03/30/21 History Multivit-Min/Iron/Folic/Lutein 1 tab PO DAILY 02/03/21 03/30/21 History [Centrum Silver Women Tablet] Omeprazole [PriLOSEC] 20 mg PO BID 02/03/21 03/30/21 History Spironolactone [Aldactone] 12.5 mg PO DAILY 02/03/21 03/30/21 History Allergies Allergy/AdvReac Type Severity Reaction Status Date / Time Iodinated Contrast Media Allergy Rash/Hives Verified 03/30/21 14:02 Surgical - Exam - General well developed, well nourished, no distress - Eyes PERRL - ENT no hearing loss - Neck trachea midline - Respiratory normal expansion, normal respiratory effort - Cardiovascular Rhythm: regular - Abdomen Abdomen: soft, non tender - Neurologic normal coordination, normal sensation - Musculoskeletal normal gait, normal posture - Psychiatric oriented to time, oriented to person, oriented to place, speech is normal, memory intact Results - Imaging Abdominal x-ray: report reviewed, image reviewed CT scan - abdomen: report reviewed, image reviewed CT scan - pelvis: report reviewed, image reviewed Assessment and Plan Assessment: Impression: Medullary sponge kidney with stones. Symptomatic left ureteral stone. Possible right ureteral stone Plan: left ureteroscopy with laser lithotripsy, possible stent. right retrograde pyelogram with possible ureteroscopy.laser lithotripsy and possible stent.
[~2021-04-01 08:59] MED LIST changes: +HYDROmorphone 0.5 MG/0.5 ML SYRINGE IVP PRN; -LACTATED RINGERS 1,000 ML IV SCH; +LIDOCAINE 1% (10MG/ML) FOR IV START INTRADERMA PRN; +ONDANSETRON 4 MG/2 ML VIAL IVP ONE
--- NOTE | 2021-04-01 09:23 | XR ---
EXAMINATION TYPE: XR KUB DATE OF EXAM: 04/01/2021 HISTORY: Pain Comparison: 03/27/2021 Single KUB is submitted for interpretation. Findings: Right renal calculi: Multiple right-sided renal calculi noted of the largest of which is seen within the upper pole and measures 9 mm. Innumerable sub-5 mm calculi seen throughout the right kidney. Right ureteral calculi: I cannot exclude distal ureteral calculi measuring up to 3.2 mm. Left renal calculi: Numerous left-sided renal calculi with the largest calculus seen within the mid pole measuring 5.2 mm. Left ureteral calculi: None Visualized. Pelvic calcifications: Multiple pelvic calcifications redemonstrated. Bowel gas pattern is unremarkable. No free air. No mass effects. IMPRESSION: 1. Nephrolithiasis as discussed.
[2021-04-01] MEDS ORDERED: LACTATED RINGERS 1,000 ML IV ONE ×2 (09:33→15:40)
[2021-04-01 09:51] LABS: Basophils % (A) 1 %; Eosinophils # (A) 0.4 k/uL (0-0.7); Eosinophils % (A) 4 %; HCT 44.1 % (34.0-46.0); HGB 14.3 gm/dL (11.4-16.0); Lymphocytes # (A) 1.8 k/uL (1.0-4.8); Lymphocytes % (A) 21 %; MCH 30.5 pg (25.0-35.0); MCHC 32.5 g/dL (31.0-37.0); MCV 93.8 fL (80.0-100.0); Mean Platelet Volume 7.7; Monocytes # (A) 0.5 k/uL (0-1.0); Monocytes % (A) 6 %; Neutrophils # (A) 5.7 k/uL (1.3-7.7); Neutrophils % (A) 66 %; Platelet Count 480 k/uL (150-450); RDW 12.9 % (11.5-15.5); WBC 8.6 k/uL (3.8-10.6)
[2021-04-01 09:52] LABS: Appearance,Urine Turbid (Clear); Bacteria,Urine Occasional /hpf; Bilirubin,Urine Negative (Negative); Blood,Urine Moderate (Negative); Color,Urine Yellow; Glucose,Urine (UA) Negative (Negative); Ketones,Urine Negative (Negative); Leukocyte Esterase,Urine Large (Negative); Mucus,Urine Rare /hpf; Nitrite,Urine Negative (Negative); Protein,Urine 2+ (Negative); RBC,Urine 79 /hpf (0-5); Specific Gravity,Urine 1.016 (1.001-1.035); Squamous Epithelial Cell,Urine 1 /hpf (0-4); Urobilinogen,Urine <2.0 mg/dL (<2.0); WBC,Urine >182 /hpf (0-5)
[2021-04-01 10:03] LABS: Calcium 9.8 mg/dL (8.4-10.2); Potassium 4.1 mmol/L (3.5-5.1)
[2021-04-01] MEDS ORDERED: PROPOFOL 10 MG/ML 20 ML VIAL IV ONE (10:15)
[2021-04-01] MEDS ORDERED: ROCURONIUM 10 MG/ML (5 ML VIAL) IV ONE (10:15)
[2021-04-01] MEDS ORDERED: fentaNYL (PF) 50 MCG/ML 2 ML AMP ONE (10:15)
[2021-04-01] MEDS ORDERED: LIDOCAINE 1% INJ 10MG/ML (20 ML MDV) ONE (10:15)
[2021-04-01] MEDS ORDERED: SUCCINYLCHOLINE CHLORIDE 100 MG/5 ML SYR IV ONE (10:15)
[2021-04-01] MEDS ORDERED: MIDAZOLAM 2 MG/2 ML VIAL ONE (10:15)
--- NOTE | 2021-04-01 11:41 | P.OP ---
Date of Procedure: 04/01/21 Preoperative Diagnosis: Bilateral ureteral and renal stones Postoperative Diagnosis: Same Procedure(s) Performed: Bilateral ureteroscopy with laser lithotripsy and stent placement Anesthesia: JAMES Surgeon: Jaden Olsen Estimated Blood Loss (ml): 0 Pathology: none sent Condition: stable Disposition: PACU Indications for Procedure: The patient is 70. She had active urolithiasis. She has a 6 mm upper ureteral stone on the left and possible stones in the right ureter she comes for cystoscopy left ureteroscopy and laser lithotripsy and possible right ureteroscopy laser lithotripsy Description of Procedure: Patient brought to the operative suite and given a general anesthetic placed lithotomy position with sterile prep and drape cystoscopy Foroblique lens and 21-Setswana sheath identifies a normal urethra. 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 Ureteral orifices are normal. The left with 35 wires passed up the left ureter. The stone in the proximal ureter is identified in the wire goes by it. The stone dislodges up in the kidney. Over the wires passed a [id number] reentry sheath. The inner sheath is removed. With the flexible ureteroscope and passed the ureteroscope up into the kidney. The ureteral stone was identified the renal pelvis and broken into tiny fragments with the 200 laser probe. She has multiple small lower pole stones that I passed the ureteroscope in each calyx and break the stones into tiny fragments. Then of the procedure I see no significant remaining stone fluoroscopically or endoscopically. Through the ureteral reentry sheath an 035 wires passed into the renal pelvis. The reentry sheath was removed and over the wires pass a 6 x 24 double-J catheter that coils in the renal pelvis and the bladder I reintroduced the cystoscope and the bladder. I passed an 035 up the ureter a nd there is an obvious obstruction of the ureter in the distal ureter. The semirigid scope up to the stone with the 200 laser probe break most distal stone. There are 2 more proximal stones with that. Through the scope I passed eventually an 035 wire up into the kidney. Then alongside the wire pass the ureteroscope and break up the remaining stones into tiny fragments and flushed out of the ureter. Over the wires and passed a 6 x 24 double-J catheter that coils in the renal pelvis and the bladder the bladder strain the patient awake and returned recovery room good condition. She'll be discharged home upon recovery and found the office in 10 days for bilateral lateral stent removal. She'll also need to have the right renal stones addressed. We will also talk about referral for more in-depth metabolic evaluation to try to slow the stone formation down.
[2021-04-01] MEDS ORDERED: ONDANSETRON 4 MG/2 ML VIAL ONE (12:27)
[2021-04-01] MEDS ORDERED: ONDANSETRON 4 MG/2 ML VIAL IVP ONE (12:32)
[2021-04-01] MEDS ORDERED: KETOROLAC 15 MG/ML 1 ML VIAL ONE (12:36)
[2021-04-01] MEDS ORDERED: KETOROLAC 15 MG/ML 1 ML VIAL IVP ONE (12:48)
--- NOTE | 2021-04-01 12:50 | FL ---
Fluoroscopy History: CYSTO LITHO LEFT CALCULI cysto litho left calculi. fl time 1 min 16 sec. tech time 1hr [address] garvin.
[2021-04-01] MEDS ORDERED: diphenhydrAMINE 50 MG/ML 1 ML VIAL ONE (15:07)
[2021-04-01] MEDS ORDERED: diphenhydrAMINE 50 MG/ML 1 ML VIAL IVP ONE (15:13)
--- NOTE | 2021-04-01 15:15 | P.PN ---
Subjective Progress Note Date: 04/01/21 The patient had fever post op I suspect the fever is urinary in origin. I will start her on rocephin and culture her urine. She will continue in the hospital.She will c/w ivf Objective - Vital Signs Vital signs: Vital Signs Temp 97.1 F L 04/01/21 11:50 Pulse 70 04/01/21 14:00 Resp 18 04/01/21 14:00 BP 96/52 04/01/21 14:00 Pulse Ox 97 04/01/21 14:00 Intake & Output 03/31/21 04/01/21 04/01/21 18:59 06:59 18:59 Intake Total 700 Output Total 101 Balance 599 Weight 70.9 kg Intake: IV 700 Output: Urine 100 Estimated Blood Loss 1 - Labs CBC & Chem 7: 04/01/21 09:40 04/01/21 09:40 Labs: Abnormal Lab Results - Last 24 Hours (Table) 04/01/21 04/01/21 04/01/21 Range/Units 09:28 09:40 09:40 Plt Count 480 H (150-450) k/uL Glucose 124 H (74-99) mg/dL Urine Appearance Turbid H (Clear) Urine Protein 2+ H (Negative) Urine Blood Moderate H (Negative) Ur Leukocyte Esterase Large H (Negative) Urine RBC 79 H (0-5) /hpf Urine WBC >182 H (0-5) /hpf Urine WBC Clumps Many H (None) /hpf Urine Bacteria Occasional H (None) /hpf Urine Mucus Rare H (None) /hpf
[2021-04-01] MEDS ORDERED: ACETAMINOPHEN TAB 325 MG TAB PO ONE (15:18)
[2021-04-01 16:00] LABS: Appearance,Urine Cloudy (Clear); Bacteria,Urine Rare /hpf; Bilirubin,Urine Negative (Negative); Blood,Urine Large (Negative); Color,Urine Yellow; Glucose,Urine (UA) Trace (Negative); Ketones,Urine Trace (Negative); Leukocyte Esterase,Urine Large (Negative); Mucus,Urine Rare /hpf; Nitrite,Urine Negative (Negative); PH, Urine 6.5 (5.0-8.0); Protein,Urine 1+ (Negative); RBC,Urine >182 /hpf (0-5); Specific Gravity,Urine 1.009 (1.001-1.035); Squamous Epithelial Cell,Urine <1 /hpf (0-4); Urobilinogen,Urine <2.0 mg/dL (<2.0); WBC,Urine 42 /hpf (0-5)
[2021-04-01] MEDS: LACTATED RINGERS 1,000 ML IV SCH (16:45)
[2021-04-01] MEDS: DEXTROSE 5%-0.45% NACL 1,000 ML IV SCH (17:04)
[2021-04-02] MEDS: ACETAMINOPHEN TAB 325 MG TAB PO PRN ×3 (00:26→19:54)
[2021-04-02] MEDS: MORPHINE SULFATE 2 MG/ML SYRINGE IV PRN ×2 (02:39→07:33)
[2021-04-02] MEDS ORDERED: LEVOFLOXACIN 500MG-D5W PMX 500 MG in DEXTROSE/WATER 1 100ML.BAG IVPB SCH (09:00)
[2021-04-02] MEDS: LACTATED RINGERS 1,000 ML IV SCH (09:01)
[2021-04-02] MEDS ORDERED: HYDROcodone/APAP 5-325MG 1 EACH TAB PO PRN (10:35)
--- NOTE | 2021-04-02 10:36 | P.PN ---
Progress Note - Text Progress Note Date: 04/02/21 The patient developed a fever following bilateral ureteroscopy yesterday and was admitted. She is currently afebrile. She reports pain across her lower back. She is currently receiving Levaquin, pending the urine culture result. She will be discharged home once she is more comfortable, assuming she remains afebrile.
[2021-04-02] MEDS: HYDROcodone/APAP 5-325MG 1 EACH TAB PO PRN ×2 (12:12→16:26)
[2021-04-02] MEDS: DEXTROSE 5%-0.45% NACL 1,000 ML IV SCH (14:39)
[2021-04-02] MEDS ORDERED: ONDANSETRON 4 MG/2 ML VIAL IVP PRN (15:50)
[2021-04-02] MEDS ORDERED: IBUPROFEN 400 MG TAB PO PRN (20:59)
[2021-04-03] MEDS: HYDROcodone/APAP 5-325MG 1 EACH TAB PO PRN ×3 (00:22→16:13)
[2021-04-03] MEDS: LACTATED RINGERS 1,000 ML IV SCH (06:47)
--- NOTE | 2021-04-03 07:45 | P.PN ---
Subjective Progress Note Date: 04/03/21 The patient is in her second postoperative day from bilateral ureteroscopy laser lithotripsy and stone removal. She has bilateral stents. She had postoperative urinary tract infection with sepsis. Her temperature is coming down and she is feeling better. Her appetite is slowly improving. Her vital signs are stable. If she feels well she may go home later today. Her stents will remain in 10 days. We have discussed possible referral to Medical Center for further metabolic evaluation for her recurrent stone disease. Objective - Vital Signs Vital signs: Vital Signs Temp 97.8 F 04/03/21 05:15 Pulse 59 L 04/03/21 05:15 Resp 16 04/03/21 05:15 BP 95/61 04/03/21 05:15 Pulse Ox 95 04/03/21 05:15 Intake & Output 04/02/21 04/03/21 04/03/21 18:59 06:59 18:59 Intake Total 450 Balance 450 Intake: Intake, IV Titration 450 Amount Dextrose 5%-0.45% NaCl 1, 450 000 ml @ 50 mls/hr IV . Q[facility]H [facility] Rx#:[id number] Other: Voiding Method Toilet Toilet # Voids 4 2 # Bowel Movements 0 - Labs CBC & Chem 7: 04/01/21 09:40 04/01/21 09:40
--- NOTE | 2021-04-03 07:47 | P.DS ---
Providers Attending physician: Jaden Olsen Primary care physician: [facility] Course: The patient underwent bilateral ureteroscopy to relieve her of bilateral ureteral obstruction. She had postoperative urinary tract infection with sepsis. Her temperature is coming down. She is feeling better. She is on Levaquin. If she feels well later today she'll be discharged home. She'll follow in the office in 10 days for stent removal. Postoperative instructions been given. Her diet is regular. She's been given a prescription for Levaquin and [place]. She's been instructed to contact us at any time without problems. Patient Condition at Discharge: Good Plan - Discharge Summary Discharge Rx Participant: Yes New Discharge Prescriptions: New Levofloxacin [Levaquin] 500 mg PO DAILY 1 Days #10 tab HYDROcodone/APAP 5-325MG [[place] 5-325] 1 tab PO Q4HR PRN #14 tab PRN Reason: Pain Control No Action Pravastatin Sodium [Pravachol] 20 mg PO HS Aspirin 81 mg PO DAILY Cholecalciferol [Vitamin D3 (25 Mcg = 1000 Iu)] 1,000 unit PO DAILY Calcium Carbonate [Calcium] 600 mg PO DAILY Celecoxib [CeleBREX] 100 mg PO BID Spironolactone [Aldactone] 12.5 mg PO DAILY Biotin 5 mg PO DAILY Escitalopram [Lexapro] 10 mg PO DAILY Denosumab [Prolia] 60 mg SQ Q180D Omeprazole [PriLOSEC] 20 mg PO BID Multivit-Min/Iron/Folic/Lutein [Centrum Silver Women Tablet] 1 tab PO DAILY Lit Control Ph Balance Supp 1 tab PO BID Discharge Medication List Aspirin 81 mg PO DAILY 06/10/14 [History] Pravastatin Sodium [Pravachol] 20 mg PO HS 06/10/14 [History] Calcium Carbonate [Calcium] 600 mg PO DAILY 02/25/16 [History] Cholecalciferol [Vitamin D3 (25 Mcg = 1000 Iu)] 1,000 unit PO DAILY 02/25/16 [History] Celecoxib [CeleBREX] 100 mg PO BID 12/23/20 [History] Biotin 5 mg PO DAILY 02/03/21 [History] Denosumab [Prolia] 60 mg SQ Q180D 02/03/21 [History] Escitalopram [Lexapro] 10 mg PO DAILY 02/03/21 [History] Lit Control Ph Balance Supp 1 tab PO BID 02/03/21 [History] Multivit-Min/Iron/Folic/Lutein [Centrum Silver Women Tablet] 1 tab PO DAILY 02/03/21 [History] Omeprazole [PriLOSEC] 20 mg PO BID 02/03/21 [History] Spironolactone [Aldactone] 12.5 mg PO DAILY 02/03/21 [History] HYDROcodone/APAP 5-325MG [[place] 5-325] 1 tab PO Q4HR PRN #14 tab 04/03/21 [Rx] Levofloxacin [Levaquin] 500 mg PO DAILY 1 Days #10 tab 04/03/21 [Rx] Follow up Appointment(s)/Referral(s): Jaden Olsen MD [STAFF PHYSICIAN] - 10 Days (cysto with stent removal) Patient Instructions/Handouts: *[facility] - Anesthesia Discharge Instructions, Cystoscopy (DC), Urethral Stent Placement (DC), Lithotripsy (DC) Discharge Disposition: HOME SELF-CARE
[2021-04-03] MEDS: DEXTROSE 5%-0.45% NACL 1,000 ML IV SCH (08:37)
[2021-04-03] MEDS ORDERED: LEVOFLOXACIN 500 MG TAB PO SCH (09:00)
[2021-04-03 11:15] VITALS: TEMP 98.5
[2021-04-03 11:51] VITALS: BP 96/64; PULSE 71; RESP 18
== END 2021-04-03 16:49 | disposition home or self-care (01) ==
LOC: OR 08:59 → 5NMEDONC 11:50 → OR 15:43
PROVIDERS: ATTEND Urology
DX: N20.0 Calculus of kidney (principal); Z87.442 Personal history of urinary calculi; N20.2 Calculus of kidney with calculus of ureter; K21.9 Gastro-esophageal reflux disease without esophagitis; I10 Essential (primary) hypertension; G43.909 Migraine, unspecified, not intractable, without status migrainosus; M81.0 Age-related osteoporosis without current pathological fracture; Z82.49 Family history of ischemic heart disease and other diseases of the circulatory system; Z79.899 Other long term (current) drug therapy; Z91.041 Radiographic dye allergy status
CPT/HCPCS: 80048; 85025; 81001; 87040; 87086; 87077; 87186; 74018; 52356; C2625; C1769; J2250; J1200; J2405 ×2; J0690; J1956; J2001; J0696 ×2; J3010; J2270; J1885; J0330; J2704; J1170; J1790

== ENCOUNTER → 2021-04-15 | Outpatient (CLI) | payer MEDICARE ==
--- NOTE | 2021-04-20 08:26 | MM ---
Reason for exam: screening (asymptomatic). Last mammogram was performed 1 year ago. History: Patient is postmenopausal. Physical Findings: A clinical breast exam by your physician is recommended on an annual basis and results should be correlated with mammographic findings. MG 3D Screening Mammo W/Cad Bilateral CC and MLO view(s) were taken. Prior study comparison: April 04, 2020, bilateral MG 3d screening mammo w/cad. March 29, 2019, bilateral MG 3d screening mammo w/cad. There are scattered fibroglandular densities. No significant changes when compared with prior studies. ASSESSMENT: Negative, BI-RAD 1 RECOMMENDATION: Routine screening mammogram of both breasts in 1 year.
== END | disposition home or self-care (01) ==
LOC: RADMAMWWP 12:35
PROVIDERS: ATTEND Internal Medicine Geriatric Medicine
DX: Z12.31 Encounter for screening mammogram for malignant neoplasm of breast (principal); Z78.0 Asymptomatic menopausal state
CPT/HCPCS: 77063; 77067

== ENCOUNTER → 2021-04-24 | Outpatient (CLI) | payer MEDICARE ==
--- NOTE | 2021-04-24 14:49 | XR ---
EXAMINATION TYPE: XR KUB DATE OF EXAM: 04/24/2021 HISTORY: Pain Comparison: None.Single KUB is submitted for interpretation. Findings: Right renal calculi: Multiple right-sided renal calculi measuring up to 9.4 mm. Right ureteral calculi: None Visualized. Left renal calculi: Multiple left-sided renal calculi measuring up to 4 mm. Left ureteral calculi: None Visualized. Pelvic calcifications: Multiple nonspecific pelvic calcifications. Bowel gas pattern is unremarkable. No free air. No mass effects. IMPRESSION: 1. Innumerable bilateral nephrolithiasis.
== END | disposition home or self-care (01) ==
LOC: RADXRMAIN 14:05
PROVIDERS: ATTEND Urology
DX: N20.0 Calculus of kidney (principal)
CPT/HCPCS: 74018

== ENCOUNTER → 2021-12-08 | Outpatient (CLI) | payer MEDICARE ==
[~2021-12-08] MED LIST changes: +DENOSUMAB 60 MG/ML 1 ML SYRINGE SQ NR; -HYDROmorphone 0.5 MG/0.5 ML SYRINGE IVP PRN; -LIDOCAINE 1% (10MG/ML) FOR IV START INTRADERMA PRN; -ONDANSETRON 4 MG/2 ML VIAL IVP ONE
[2021-12-08 09:14] VITALS: BP 112/71; PULSE 67; RESP 16; TEMP 98
== END ==
LOC: PROCWHC3 09:00
PROVIDERS: ATTEND Internal Medicine Geriatric Medicine
DX: M81.0 Age-related osteoporosis without current pathological fracture (principal); Z91.041 Radiographic dye allergy status
CPT/HCPCS: 96372; J0897

== ENCOUNTER → 2022-01-12 | Outpatient (CLI) | payer MEDICARE ==
--- NOTE | 2022-01-12 18:26 | XR ---
EXAMINATION TYPE: XR KUB DATE OF EXAM: 01/12/2022 Comparison: 04/24/21 Clinical History: 71 year old female N20.0 calculus Findings: Degenerative levoconvex scoliosis. Faint bilateral renal calculi. Aggregate group on the right thania ures up to 1.0cm. Multiple small calculi on the left measuring up to 7 mm and 5 mm. Nonobstructive bowel gas pattern. Mild scattered stool. Pelvic phleboliths. Impression: Bilateral renal calculi as above. Degenerative levoconvex scoliosis of the lumbar spine.
== END | disposition home or self-care (01) ==
LOC: RADXRMAIN 10:13
PROVIDERS: ATTEND Urology
DX: N20.0 Calculus of kidney (principal); M41.86 Other forms of scoliosis, lumbar region
CPT/HCPCS: 74018

== ENCOUNTER 2022-02-10 08:53 | Day surgery (SDC) | payer MEDICARE ==
[2022-02-05 13:00] VITALS: BMI 27.4
[~2022-02-10 08:53] MED LIST changes: -DENOSUMAB 60 MG/ML 1 ML SYRINGE SQ NR; +LACTATED RINGERS 1,000 ML IV SCH
[2022-02-10] MEDS ORDERED: LIDOCAINE 1% (10MG/ML) FOR IV START INTRADERMA ONE (09:48)
[2022-02-10 09:55] VITALS: RESP 16; TEMP 97.6
[2022-02-10] MEDS ORDERED: LIDOCAINE 2% INJ 20 MG/ML (2 ML VIAL) ONE (10:25)
[2022-02-10] MEDS ORDERED: PROPOFOL 10 MG/ML 20 ML VIAL IV ONE (10:25)
--- NOTE | 2022-02-10 10:37 | P.PCN ---
Date of Procedure: 02/10/22 Procedure(s) Performed: BRIEF HISTORY: Patient is a 71-year-old, pleasant, white female male scheduled for an upper endoscopy as a part of evaluation of long-standing history of GERD of 10 years duration. Currently on omeprazole 20 mg twice daily and doing well.. PROCEDURE PERFORMED: Esophagogastroduodenoscopy with biopsy. PREOPERATIVE DIAGNOSIS: Long-standing history of GERD. IV sedation per anesthesia. PROCEDURE: After informed consent was obtained, the patient was brought into the endoscopy unit. IV sedation was administered by Anesthesia under continuous monitoring. Initially the Olympus GIF-140 video endoscope was inserted into the mouth. Esophagus intubated without any difficulty. It was gradually advanced into the stomach and duodenum and carefully examined. The bulb and the second part of the duodenum appeared normal. The scope at this time was withdrawn to the stomach, adequately insufflated with air, and upon careful examination, mucosa of the antrum, had mild gastritis and biopsies were done from this area. The body, cardia and the fundus appeared normal. The scope was then withdrawn into the esophagus. The GE junction was located at 39 cm from the incisors. Small hiatal hernia noted. The esophagus appeared normal. There were no erosions or ulcerations seen. There was a 3 mm Perez's appearing mucosa just proximal to the GE junction was biopsied. The rest of the esophagus appeared and the patient tolerated the procedure well. IMPRESSION: 1. Mild antral gastritis. 2. Small hiatal hernia. 3. Short segment Perez's esophagus RECOMMENDATIONS: The findings of this examination were discussed with the patient as well as her family. She was advised to follow with the biopsy results. If the biopsy reveals evidence of Perez's esophagus she can have a repeat upper endoscopy every 3 years. In the meantime she will continue with omeprazole 20 mg twice daily and follow antireflux measures..
[2022-02-10 11:05] VITALS: BP 94/60; PULSE 63
== END 2022-02-10 11:25 | disposition home or self-care (01) ==
LOC: ORWHC2ENDO 08:53
PROVIDERS: ATTEND Internal Medicine Gastroenterology
DX: K21.00 Gastro-esophageal reflux disease with esophagitis, without bleeding (principal); K29.50 Unspecified chronic gastritis without bleeding; K44.9 Diaphragmatic hernia without obstruction or gangrene; Z79.899 Other long term (current) drug therapy; I10 Essential (primary) hypertension; E78.5 Hyperlipidemia, unspecified; Z91.041 Radiographic dye allergy status; G43.909 Migraine, unspecified, not intractable, without status migrainosus; Z79.82 Long term (current) use of aspirin; Z82.49 Family history of ischemic heart disease and other diseases of the circulatory system
CPT/HCPCS: 88305; 43239; J2704; J2001

== ENCOUNTER 2022-03-22 06:24 | Observation (INO) | payer MEDICARE ==
[2022-03-22] MEDS ORDERED: ONDANSETRON 4 MG/2 ML VIAL IVP STA (07:38)
[2022-03-22] MEDS ORDERED: SODIUM CHLORIDE 0.9% 1,000 ML IV STA (07:38)
[2022-03-22] MEDS ORDERED: MORPHINE SULFATE 4 MG/ML SYRINGE IV STA (07:38)
[2022-03-22] MEDS ORDERED: KETOROLAC 15 MG/ML 1 ML VIAL IVP STA (07:38)
--- NOTE | 2022-03-22 07:39 | ED ---
Abdominal Pain HPI - General Chief Complaint: Abdominal Pain Stated Complaint: LT flank pain Time Seen by Provider: 03/22/22 07:10 Source: patient Mode of arrival: ambulatory Limitations: no limitations - History of Present Illness Initial Comments: 71-year-old female past history of hypertension, hyperlipidemia, renal stones who presents to the emergency department with left flank pain. States it's been going on for the past week and a half. Feels similar in nature to her previous kidney stones. Causes her to be nauseated and have vomiting. Denies any changes in her urination to include dysuria, hematuria or difficult voiding. No changes in her bowel habits. Denies any chest pain or shortness of breath. No anterior abdominal pain or radiation of the pain. No fevers. Follows with Dr. Olsen from urology. No other alleviating, precipitating or modifying factors - Related Data Home Medications Medication Instructions Recorded Confirmed Aspirin 81 mg PO DAILY 06/10/14 03/22/22 Cholecalciferol [Vitamin D3 (25 25 mcg PO DAILY 02/25/16 03/22/22 Mcg = 1000 Iu)] Biotin 5 mg PO DAILY 02/03/21 03/22/22 Denosumab [Prolia] 60 mg SQ Q180D 02/03/21 03/22/22 Escitalopram [Lexapro] 10 mg PO DAILY 02/03/21 03/22/22 Multivit-Min/Iron/Folic/Lutein 1 tab PO DAILY 02/03/21 03/22/22 [Centrum Silver Women Tablet] Spironolactone [Aldactone] 12.5 mg PO DAILY 02/03/21 03/22/22 Pravastatin Sodium [Pravachol] 40 mg PO HS 02/05/22 03/22/22 amLODIPine BESYLATE/BENAZEPRIL 1 cap PO DAILY 02/05/22 03/22/22 [amLODIPine BESYLATE/BENAZEPRIL 10-20 mg] Calcium Carbonate/Vitamin D3 1 tab PO DAILY 03/22/22 03/22/22 [Calcium 600 mg-Vit D3 5 mcg (200 unit)] Omeprazole 20 mg PO BID 03/22/22 03/22/22 Previous Rx's Medication Instructions Recorded Cephalexin [Keflex] 500 mg PO Q8HR #15 cap 03/24/22 Allergies Allergy/AdvReac Type Severity Reaction Status Date / Time Iodinated Contrast Media Allergy Rash/Hives Verified 03/22/22 10:10 Review of Systems ROS Statement: Those systems with pertinent positive or pertinent negative responses have been documented in the HPI. ROS Other: All systems not noted in ROS Statement are negative. Past Medical History Past Medical History: GERD/Reflux, Hyperlipidemia, Hypertension, Osteoarthritis (OA) Additional Past Medical History / Comment(s): back pain, hx migraines, kidney stones,osteoporosis History of Any Multi-Drug Resistant Organisms: None Reported Past Surgical History: Section Additional Past Surgical History / Comment(s): rt wrist, 8 surgeries for kidney stones,pain procedures,[place] cataracts. Past Anesthesia/Blood Transfusion Reactions: Motion Sickness Past Psychological History: No Psychological Hx Reported Smoking Status: Never smoker Past Alcohol Use History: Occasional Past Drug Use History: None Reported - Past Family History Father Family Medical History: Myocardial Infarction ([place]) Mother Family Medical History: CVA/TIA, Hyperlipidemia, Hypertension Additional Family Medical History / Comment(s): Mother is 96 yrs old. General Exam Limitations: no limitations General appearance: alert, in no apparent distress Head exam: Present: atraumatic, normocephalic, normal inspection Eye exam: Present: normal appearance, PERRL, EOMI. Absent: scleral icterus, conjunctival injection, periorbital swelling ENT exam: Present: normal exam, mucous membranes moist Neck exam: Present: normal inspection. Absent: tenderness, meningismus, lymphadenopathy Respiratory exam: Present: normal lung sounds bilaterally. Absent: respiratory distress, wheezes, rales, rhonchi, stridor Cardiovascular Exam: Present: regular rate, normal rhythm, normal heart sounds. Absent: systolic murmur, diastolic murmur, rubs, gallop, clicks GI/Abdominal exam: Present: soft, normal bowel sounds. Absent: distended, tenderness, guarding, rebound, rigid Extremities exam: Present: normal inspection, full ROM, normal capillary refill. Absent: tenderness, pedal edema, joint swelling, calf tenderness Back exam: Present: normal inspection, CVA tenderness (L) Neurological exam: Present: alert, oriented X3, CN II-XII intact Psychiatric exam: Present: normal affect, normal mood Skin exam: Present: warm, dry, intact, normal color. Absent: rash Course Vital Signs 03/22/22 03/22/22 03/22/22 06:37 09:07 10:21 Temperature 98.5 F 98 F Pulse Rate 82 70 66 Respiratory 20 16 16 Rate Blood Pressure 107/50 102/61 100/9 O2 Sat by Pulse 95 94 L 96 Oximetry Medical Decision Making - Medical Decision Making Upon arrival patient was placed into room 6. A thorough history and physical exam was performed. IV access was established laboratory studies were conducted. White count 15.5. Creatinine is 1.36 which is up from the patient's baseline of 0.8. CT is performed which demonstrates mild left-sided [place] with 2 ureteral stones in the proximal and mid ureter. Patient is reevaluated after Toradol and continues to have pain. She is on given 4 mg of morphine. Results are discussed with the patient with Dr. zhou. Due to her continued pain, multiple stones and kidney injury she will be admitted. - Lab Data Result diagrams: 03/23/22 06:43 03/23/22 06:43 Lab Results 03/22/22 03/22/22 03/22/22 Range/Units 07:52 07:52 07:52 WBC 15.5 H (3.8-10.6) k/uL RBC 4.09 (3.80-5.40) m/uL Hgb 12.3 (11.4-16.0) gm/dL Hct 39.6 (34.0-46.0) % MCV 96.8 (80.0-100.0) fL MCH 30.0 (25.0-35.0) pg MCHC 31.0 (31.0-37.0) g/dL RDW 12.7 (11.5-15.5) % Plt Count 321 (150-450) k/uL MPV 7.9 Neutrophils % 82 % Lymphocytes % 8 % Monocytes % 8 % Eosinophils % 1 % Basophils % 0 % Neutrophils # 12.8 H (1.3-7.7) k/uL Lymphocytes # 1.2 (1.0-4.8) k/uL Monocytes # 1.2 H (0-1.0) k/uL Eosinophils # 0.2 (0-0.7) k/uL Basophils # 0.0 (0-0.2) k/uL Hypochromasia Slight Sodium 135 L (137-145) mmol/L Potassium 4.0 (3.5-5.1) mmol/L Chloride 100 (98-107) mmol/L Carbon Dioxide 22 (22-30) mmol/L Anion Gap 13 mmol/L BUN 27 H (7-17) mg/dL Creatinine 1.36 H (0.52-1.04) mg/dL Est GFR (CKD-EPI)AfAm 45 (>60 ml/min/1.73 sqM) Est GFR (CKD-EPI)NonAf 39 (>60 ml/min/1.73 sqM) Glucose 148 H (74-99) mg/dL Plasma Lactic Acid Jag 1.0 (0.7-2.0) mmol/L Calcium 8.6 (8.4-10.2) mg/dL Total Bilirubin 0.5 (0.2-1.3) mg/dL AST 24 (14-36) U/L ALT 17 (4-34) U/L Alkaline Phosphatase 34 L (38-126) U/L Total Protein 6.4 (6.3-8.2) g/dL Albumin 3.8 (3.5-5.0) g/dL Lipase 23 (23-300) U/L Urine Color Urine Appearance (Clear) Urine pH (5.0-8.0) Ur Specific [place] (1.001-1.035) Urine Protein (Negative) Urine Glucose (UA) (Negative) Urine Ketones (Negative) Urine Blood (Negative) Urine Nitrite (Negative) Urine Bilirubin (Negative) Urine Urobilinogen (<2.0) mg/dL Ur Leukocyte Esterase (Negative) Urine RBC (0-5) /hpf Urine WBC (0-5) /hpf Urine WBC Clumps (None) /hpf Ur Squamous Epith Cells (0-4) /hpf Urine Bacteria (None) /hpf Urine Mucus (None) /hpf 03/22/22 Range/Units 07:52 WBC (3.8-10.6) k/uL RBC (3.80-5.40) m/uL Hgb (11.4-16.0) gm/dL Hct (34.0-46.0) % MCV (80.0-100.0) fL MCH (25.0-35.0) pg MCHC (31.0-37.0) g/dL RDW (11.5-15.5) % Plt Count (150-450) k/uL MPV Neutrophils % % Lymphocytes % % Monocytes % % Eosinophils % % Basophils % % Neutrophils # (1.3-7.7) k/uL Lymphocytes # (1.0-4.8) k/uL Monocytes # (0-1.0) k/uL Eosinophils # (0-0.7) k/uL Basophils # (0-0.2) k/uL Hypochromasia Sodium (137-145) mmol/L Potassium (3.5-5.1) mmol/L Chloride (98-107) mmol/L Carbon Dioxide (22-30) mmol/L Anion Gap mmol/L BUN (7-17) mg/dL Creatinine (0.52-1.04) mg/dL Est GFR (CKD-EPI)AfAm (>60 ml/min/1.73 sqM) Est GFR (CKD-EPI)NonAf (>60 ml/min/1.73 sqM) Glucose (74-99) mg/dL Plasma Lactic Acid Jag (0.7-2.0) mmol/L Calcium (8.4-10.2) mg/dL Total Bilirubin (0.2-1.3) mg/dL AST (14-36) U/L ALT (4-34) U/L Alkaline Phosphatase (38-126) U/L Total Protein (6.3-8.2) g/dL Albumin (3.5-5.0) g/dL Lipase (23-300) U/L Urine Color Yellow Urine Appearance Cloudy H (Clear) Urine pH 5.5 (5.0-8.0) Ur Specific [place] 1.013 (1.001-1.035) Urine Protein Trace H (Negative) Urine Glucose (UA) Negative (Negative) Urine Ketones Trace H (Negative) Urine Blood Small H (Negative) Urine Nitrite Negative (Negative) Urine Bilirubin Negative (Negative) Urine Urobilinogen <2.0 (<2.0) mg/dL Ur Leukocyte Esterase Large H (Negative) Urine RBC 2 (0-5) /hpf Urine WBC >182 H (0-5) /hpf Urine WBC Clumps Few H (None) /hpf Ur Squamous Epith Cells <1 (0-4) /hpf Urine Bacteria Rare H (None) /hpf Urine Mucus Rare H (None) /hpf Disposition Clinical Impression: Flank pain, Ureteral stone, RAMAKRISHNA (acute kidney injury) Disposition: ADMITTED IP TO THIS [facility] Condition: Stable Is patient prescribed a controlled substance at d/c from ED?: No Time of Disposition: 09:49 Decision to Admit Reason: Admit from EC Decision Date: 03/22/22 Decision Time: 09:49
[2022-03-22 08:09] LABS: Basophils % (A) 0 %; Eosinophils # (A) 0.2 k/uL (0-0.7); Eosinophils % (A) 1 %; HCT 39.6 % (34.0-46.0); HGB 12.3 gm/dL (11.4-16.0); Hypochromasia Slight; Lymphocytes # (A) 1.2 k/uL (1.0-4.8); Lymphocytes % (A) 8 %; MCV 96.8 fL (80.0-100.0); Mean Platelet Volume 7.9; Monocytes # (A) 1.2 k/uL (0-1.0); Monocytes % (A) 8 %; Neutrophils # (A) 12.8 k/uL (1.3-7.7); Neutrophils % (A) 82 %; Platelet Count 321 k/uL (150-450); RBC 4.09 m/uL (3.80-5.40); RDW 12.7 % (11.5-15.5); WBC 15.5 k/uL (3.8-10.6)
--- NOTE | 2022-03-22 08:30 | CT ---
EXAMINATION TYPE: CT abdomen pelvis wo con CT DLP: 551.7 mGycm, Automated exposure control for dose reduction was used. DATE OF EXAM: 03/22/2022 8:11 AM COMPARISON: CT abdomen pelvis most recent from 03/27/2021 . CLINICAL INDICATION:Female, 71 years old with history of abdominal pain; Left flank pain, Possible ki dney stone TECHNIQUE: Standard CT of the abdomen and pelvis without IV or oral contrast. Lack of IV or oral co ntrast limits evaluation of solid and hollow organ viscera. Coronal and sagittal reformats were perfo rmed. FINDINGS: LOWER CHEST: Medial left lower lobe calcified granuloma. ABDOMEN LIVER: Unremarkable noncontrast appearance. GALLBLADDER AND BILE DUCTS: Calcified gallstones. No surrounding inflammatory changes. No biliary mery katie dilatation. PANCREAS: Unremarkable noncontrast appearance. SPLEEN: Unremarkable noncontrast appearance. ADRENAL GLANDS: Unremarkable noncontrast appearance. KIDNEYS AND URETERS: Mild left hydroureteronephrosis with an obstructing calculus in the mid left ure ter measuring up to 4 mm (series 201, image 66). Additional calculus demonstrated within the proximal left ureter near the ureteropelvic junction measuring up to 5 mm (series 201, image 45). Perinephric left fat stranding identified. Multiple nonobstructive calculi demonstrated within the bilateral kid neys. Largest within the inferior pole of the right kidney measures up to 5 mm. PELVIS BLADDER: Under distended, limited evaluation. No definitive calculi. REPRODUCTIVE: Unremarkable. ABDOMEN & PELVIS STOMACH AND BOWEL: Small hiatal hernia, duodenum is unremarkable. Colonic diverticulosis without evid ence for acute diverticulitis. The appendix is within normal limits. No evidence of bowel obstruction . PERITONEUM: No evidence of pneumoperitoneum or free fluid. VASCULATURE: Mild atherosclerotic calcifications are present throughout the abdominal aorta and its b ranches. No evidence of aortic aneurysm. MUSCULOSKELETAL: No acute osseous abnormalities. Mild disc degeneration changes are present throughou t the thoracolumbar spine. LYMPH NODES: No gross evidence for lymphadenopathy. SOFT TISSUE/ABDOMINAL WALL: Small fat filled lumbrical hernia. IMPRESSION: 1. Mild left hydroureteronephrosis with a 4 mm obstructing calculus in the mid left ureter and addit ional 5 mm calculus in the proximal left ureter near the ureteral pelvic junction. 2. Nonobstructive bilateral renal calculi identified. 3. Colonic diverticulosis without evidence for acute diverticulitis. 4. Cholelithiasis.
[2022-03-22 08:37] LABS: Albumin 3.8 g/dL (3.5-5.0); Calcium 8.6 mg/dL (8.4-10.2); Total Bilirubin 0.5 mg/dL (0.2-1.3); Total Protein 6.4 g/dL (6.3-8.2)
[2022-03-22] MEDS ORDERED: NALOXONE 0.4 MG/ML 1 ML VIAL IV PRN (09:49)
[2022-03-22 10:59] LABS: Appearance,Urine Cloudy (Clear); Bacteria,Urine Rare /hpf; Bilirubin,Urine Negative (Negative); Blood,Urine Small (Negative); Color,Urine Yellow; Glucose,Urine (UA) Negative (Negative); Ketones,Urine Trace (Negative); Leukocyte Esterase,Urine Large (Negative); Mucus,Urine Rare /hpf; Nitrite,Urine Negative (Negative); PH, Urine 5.5 (5.0-8.0); Protein,Urine Trace (Negative); RBC,Urine 2 /hpf (0-5); Specific Gravity,Urine 1.013 (1.001-1.035); Squamous Epithelial Cell,Urine <1 /hpf (0-4); Urobilinogen,Urine <2.0 mg/dL (<2.0); WBC,Urine >182 /hpf (0-5)
[2022-03-22] MEDS: SODIUM CHLORIDE 0.9% 1,000 ML IV SCH ×2 (11:14→17:31)
[2022-03-22] MEDS: PANTOPRAZOLE 40 MG TABLET PO SCH (14:24)
[2022-03-22] MEDS: MORPHINE SULFATE 4 MG/ML SYRINGE IV PRN ×3 (14:24→22:52)
[2022-03-22] MEDS: KETOROLAC 15 MG/ML 1 ML VIAL IVP PRN ×2 (17:25→23:45)
--- NOTE | 2022-03-22 19:53 | P.GSHP ---
History of Present Illness H&P Date: 03/22/22 Chief Complaint: Left ureteral stone This is a 71-year-old female admitted to the hospital with intractable flank pain. Flank pain associated with nausea and vomiting. Denies any gross hematuria or dysuria, but does complain of bladder pressure and urgency. On presentation CT abdomen and pelvis showed evidence of two 4 mm left-sided ureteral stone causing hydronephrosis. UA on presentation was concerning for UTI. She does have history of recurrent kidney stones, and follows up with Dr. Olsen as an outpatient for management of her stone. Has underwent multiple li thotripsies in the past. She is also been complaining of recurrent UTIs, last UTI was on January 29 showed E. coli. On evaluation this afternoon she still having intractable pain Past Medical History Past Medical History: GERD/Reflux, Hyperlipidemia, Hypertension, Osteoarthritis (OA), Renal Disease Additional Past Medical History / Comment(s): Medullary sponge kidney and kidney stones, UTIs, osteoporosis, hiatal hernia, gastritis, chronic back pain, migraines History of Any Multi-Drug Resistant Organisms: None Reported Past Surgical History: Section, Orthopedic Surgery Additional Past Surgical History / Comment(s): Multiple surgeries for kidney stones/cysto's/litho's/double J stents/since removed, R wrist cyst that caused bone fracture, pain clinic procedures, EGD, colonoscopy, bilateral catarct removals. Past Anesthesia/Blood Transfusion Reactions: Motion Sickness Additional Past Anesthesia/Blood Transfusion Reaction / Comment(s): Pt has clausterphobia. Smoking Status: Never smoker - Past Family History Father Family Medical History: Myocardial Infarction ([place]) Additional Family Medical History / Comment(s): Father is . Mother Family Medical History: CVA/TIA, Hyperlipidemia, Hypertension Additional Family Medical History / Comment(s): Mother is 96 yrs old. Medications and Allergies Home Medications Medication Instructions Recorded Confirmed Type Aspirin 81 mg PO DAILY 06/10/14 03/22/22 History Cholecalciferol [Vitamin D3 (25 25 mcg PO DAILY 02/25/16 03/22/22 History Mcg = 1000 Iu)] Biotin 5 mg PO DAILY 02/03/21 03/22/22 History Denosumab [Prolia] 60 mg SQ Q180D 02/03/21 03/22/22 History Escitalopram [Lexapro] 10 mg PO DAILY 02/03/21 03/22/22 History Multivit-Min/Iron/Folic/Lutein 1 tab PO DAILY 02/03/21 03/22/22 History [Centrum Silver Women Tablet] Spironolactone [Aldactone] 12.5 mg PO DAILY 02/03/21 03/22/22 History Pravastatin Sodium [Pravachol] 40 mg PO HS 02/05/22 03/22/22 History amLODIPine BESYLATE/BENAZEPRIL 1 cap PO DAILY 02/05/22 03/22/22 History [amLODIPine BESYLATE/BENAZEPRIL 10-20 mg] Calcium Carbonate/Vitamin D3 1 tab PO DAILY 03/22/22 03/22/22 History [Calcium 600 mg-Vit D3 5 mcg (200 unit)] Omeprazole 20 mg PO BID 03/22/22 03/22/22 History Allergies Allergy/AdvReac Type Severity Reaction Status Date / Time Iodinated Contrast Media Allergy Rash/Hives Verified 03/22/22 10:10 Surgical - Exam Vital Signs Temp Pulse Resp BP Pulse Ox 98.5 F 82 20 107/50 95 03/22/22 06:37 03/22/22 06:37 03/22/22 06:37 03/22/22 06:37 03/22/22 06:37 - General no distress, severe pain - Eyes normal ocular movement, no pale - ENT normal nares, normal mucosa - Respiratory normal expansion, normal respiratory effort - Abdomen Abdomen: soft, tender (Left flank) - Psychiatric oriented to time, oriented to person, oriented to place Results - Labs 03/22/22 07:52 03/22/22 07:52 Abnormal Lab Results - Last 24 Hours (Table) 03/22/22 03/22/22 03/22/22 Range/Units 07:52 07:52 07:52 WBC 15.5 H (3.8-10.6) k/uL Neutrophils # 12.8 H (1.3-7.7) k/uL Monocytes # 1.2 H (0-1.0) k/uL Sodium 135 L (137-145) mmol/L BUN 27 H (7-17) mg/dL Creatinine 1.36 H (0.52-1.04) mg/dL Glucose 148 H (74-99) mg/dL Alkaline Phosphatase 34 L (38-126) U/L Urine Appearance Cloudy H (Clear) Urine Protein Trace H (Negative) Urine Ketones Trace H (Negative) Urine Blood Small H (Negative) Ur Leukocyte Esterase Large H (Negative) Urine WBC >182 H (0-5) /hpf Urine WBC Clumps Few H (None) /hpf Urine Bacteria Rare H (None) /hpf Urine Mucus Rare H (None) /hpf Microbiology - Last 24 Hours (Table) 03/22/22 07:52 Urine Culture - Preliminary Urine,Voided Diabetes panel 03/22/22 Range/Units 07:52 Sodium 135 L (137-145) mmol/L Potassium 4.0 (3.5-5.1) mmol/L Chloride 100 (98-107) mmol/L Carbon Dioxide 22 (22-30) mmol/L BUN 27 H (7-17) mg/dL Creatinine 1.36 H (0.52-1.04) mg/dL Glucose 148 H (74-99) mg/dL Calcium 8.6 (8.4-10.2) mg/dL AST 24 (14-36) U/L ALT 17 (4-34) U/L Alkaline Phosphatase 34 L (38-126) U/L Total Protein 6.4 (6.3-8.2) g/dL Albumin 3.8 (3.5-5.0) g/dL Calcium panel 03/22/22 Range/Units 07:52 Calcium 8.6 (8.4-10.2) mg/dL Albumin 3.8 (3.5-5.0) g/dL Pituitary panel 03/22/22 Range/Units 07:52 Sodium 135 L (137-145) mmol/L Potassium 4.0 (3.5-5.1) mmol/L Chloride 100 (98-107) mmol/L Carbon Dioxide 22 (22-30) mmol/L BUN 27 H (7-17) mg/dL Creatinine 1.36 H (0.52-1.04) mg/dL Glucose 148 H (74-99) mg/dL Calcium 8.6 (8.4-10.2) mg/dL Adrenal panel 03/22/22 Range/Units 07:52 Sodium 135 L (137-145) mmol/L Potassium 4.0 (3.5-5.1) mmol/L Chloride 100 (98-107) mmol/L Carbon Dioxide 22 (22-30) mmol/L BUN 27 H (7-17) mg/dL Creatinine 1.36 H (0.52-1.04) mg/dL Glucose 148 H (74-99) mg/dL Calcium 8.6 (8.4-10.2) mg/dL Total Bilirubin 0.5 (0.2-1.3) mg/dL AST 24 (14-36) U/L ALT 17 (4-34) U/L Alkaline Phosphatase 34 L (38-126) U/L Total Protein 6.4 (6.3-8.2) g/dL Albumin 3.8 (3.5-5.0) g/dL Assessment and Plan Assessment: This is a 71-year-old female admitted to the hospital with two 4 mm left-sided ureteral stone, causing intractable pain history of recurrent kidney stones. Urinalysis is concerning for UTI. Discussed with her given her UTI and intractable pain we'll proceed with stent insertion. Discussed with her given her UTI primary ureteroscopy is not advised. At this point will proceed with stent insertion, discussed that she will eventually require ureteroscopy with holmium laser to address her stone. -Nothing by mouth past midnight -We'll continue ceftriaxone -OR tomorrow for left stent insertion
[2022-03-22] MEDS: PRAVASTATIN SODIUM 40 MG TAB PO SCH (20:58)
[2022-03-22] MEDS: ONDANSETRON 4 MG/2 ML VIAL IVP PRN (20:58)
[2022-03-23] MEDS ORDERED: SODIUM CHLORIDE 0.9% 500 ML 500 ML IV ONE (03:28)
[2022-03-23] MEDS: SODIUM CHLORIDE 0.9% 1,000 ML IV SCH ×3 (03:36→14:10)
[2022-03-23] MEDS: KETOROLAC 15 MG/ML 1 ML VIAL IVP PRN ×3 (07:26→20:31)
[2022-03-23] MEDS: SPIRONOLACTONE 25 MG TAB PO SCH ×2 (07:27→07:28)
[2022-03-23] MEDS: ESCITALOPRAM 10 MG TAB PO SCH (07:27)
[2022-03-23] MEDS: PANTOPRAZOLE 40 MG TABLET PO SCH (07:27)
--- NOTE | 2022-03-23 09:24 | P.PN ---
Subjective Progress Note Date: 03/23/22 no acute overnight events, denies any flank pain. Objective - Vital Signs Vital signs: Vital Signs Temp 98.3 F 03/23/22 03:02 Pulse 66 03/23/22 07:00 Resp 16 03/23/22 07:00 BP 99/63 03/23/22 07:00 Pulse Ox 95 03/23/22 07:00 FiO2 Intake & Output 03/22/22 03/23/22 03/23/22 18:59 06:59 18:59 Intake Total 236 Balance 236 Weight 68.039 kg Intake: Oral 236 Other: Voiding Method Toilet # Voids 1 1 - Constitutional General appearance: Present: no acute distress - Labs CBC & Chem 7: 03/22/22 07:52 03/22/22 07:52 Labs: Abnormal Lab Results - Last 24 Hours (Table) 03/22/22 03/22/22 Range/Units 07:52 07:52 Sodium 135 L (137-145) mmol/L BUN 27 H (7-17) mg/dL Creatinine 1.36 H (0.52-1.04) mg/dL Glucose 148 H (74-99) mg/dL Alkaline Phosphatase 34 L (38-126) U/L Urine Appearance Cloudy H (Clear) Urine Protein Trace H (Negative) Urine Ketones Trace H (Negative) Urine Blood Small H (Negative) Ur Leukocyte Esterase Large H (Negative) Urine WBC >182 H (0-5) /hpf Urine WBC Clumps Few H (None) /hpf Urine Bacteria Rare H (None) /hpf Urine Mucus Rare H (None) /hpf Microbiology - Last 24 Hours (Table) 03/22/22 07:52 Urine Culture - Preliminary Urine,Voided Assessment and Plan Assessment: This is a 71-year-old female admitted to the hospital with two 4 mm left-sided ureteral stone, causing intractable pain history of recurrent kidney stones. Urinalysis is concerning for UTI. Discussed with her given her UTI and intractable pain we'll proceed with stent insertion. Discussed with her given her UTI primary ureteroscopy is not advised. At this point will proceed with stent insertion, discussed that she will eventually require ureteroscopy with holmium laser to address her stone. -Nothing by mouth today -We'll continue ceftriaxone -OR today for left stent insertion
[2022-03-23] MEDS: MORPHINE SULFATE 4 MG/ML SYRINGE IV PRN (09:51)
[2022-03-23 10:23] LABS: Basophils # (A) 0.04 X 10*3/uL (0.00-0.10); Basophils % (A) 0.5 %; Eosinophils # (A) 0.27 X 10*3/uL (0.04-0.35); Eosinophils % (A) 3.6 %; HCT 35.7 % (37.2-46.3); HGB 10.9 g/dL (12.0-15.0); Immature Grans, Automated 0.4 %; Lymphocytes # (A) 1.38 X 10*3/uL (0.90-5.00); Lymphocytes % (A) 18.2 %; MCH 30.4 pg (27.0-32.0); MCHC 30.5 g/dL (32.0-37.0); MCV 99.4 fL (80.0-97.0); Mean Platelet Volume 10.8 fL (9.5-12.2); Monocytes # (A) 1.03 X 10*3/uL (0.20-1.00); Monocytes % (A) 13.6 %; NRBC Per 100 WBC 0 /100 WBCS (0.0-0.0); Neutrophils # (A) 4.85 X 10*3/uL (1.80-7.70); Neutrophils % (A) 63.7 %; Platelet Count 274 X 10*3/uL (140-440); RBC 3.59 X 10*6/uL (4.10-5.20); RDW 12.9 % (11.5-14.5)
[2022-03-23 10:34] LABS: African American GFR (CKD) 66.2 (60.0-200.0); Anion Gap 9.6 mmol/L (10.00-18.00); BUN/Creat Ratio 16.8 Ratio (12.00-20.00); Blood Urea Nitrogen 16.5 mg/dL (9.0-27.0); Calcium 7.8 mg/dL (8.7-10.3); Carbon Dioxide 21.8 mmol/L (20.0-27.5); Non-African American GFR(CKD) 57.1 (60.0-200.0); Potassium 4.2 mmol/L (3.5-5.5)
[2022-03-23] MEDS ORDERED: LACTATED RINGERS 1,000 ML IV ONE (15:37)
[2022-03-23] MEDS: ONDANSETRON 4 MG/2 ML VIAL IVP PRN (15:42)
[2022-03-23] MEDS ORDERED: LIDOCAINE 2% INJ 20 MG/ML (2 ML VIAL) ONE (16:02)
[2022-03-23] MEDS ORDERED: PROPOFOL 10 MG/ML 20 ML VIAL IV ONE (16:02)
[2022-03-23] MEDS ORDERED: fentaNYL (PF) 50 MCG/ML 2 ML AMP ONE (16:02)
[2022-03-23] MEDS ORDERED: SODIUM CHLORIDE 0.9% 100 ML with ceFAZolin 2 GM IV ONE ×2 (16:07)
[2022-03-23] MEDS ORDERED: IOPAMIDOL-370 50ML BTL IRRIGATION ONE (16:37)
[2022-03-23] MEDS ORDERED: HYDROmorphone 0.5 MG/0.5 ML SYRINGE IVP ONE ×2 (17:00→17:14)
--- NOTE | 2022-03-23 17:00 | P.OP ---
Date of Procedure: 03/23/22 Preoperative Diagnosis: Left ureteral stone Postoperative Diagnosis: Same Procedure(s) Performed: Cystoscopy, left retrograde pyelogram, ureteral stent insertion Implants: 4.8-Qatari by 24 centimeters stent in the left ureter Anesthesia: JAMES Surgeon: Tye Romo Estimated Blood Loss (ml): 1 Pathology: none sent Condition: stable Disposition: PACU Indications for Procedure: This is a 71-year-old female admitted to the hospital with two 4 mm left-sided ureteral stone, causing intractable pain history of recurrent kidney stones. Urinalysis is concerning for UTI. Discussed with her given her UTI and intractable pain we'll proceed with stent insertion. Discussed with her given her UTI primary ureteroscopy is not advised. At this point will proceed with stent insertion, discussed that she will eventually require ureteroscopy with holmium laser to address her stone. Description of Procedure: Patient brought to operating room, general anesthesia was induced. She was prepped and draped in sterile fashion and placed in dorsal lithotomy position. Cystoscopy fitted with 21-Qatari sheath was inserted per urethra, cystoscopy was performed which showed no abnormality within the bladder. Attention was then carried to the left ureteral orifice which was intubated with a sensor wire. I was able to advance the wire into the collecting system. Next under fluoroscopy a 6-Qatari by 24 cm stent was passed over, at this point I met resistance at the location of the UPJ. At this time the stent was removed with the wire in place. Next I passed an open-ended catheter over the wire, the wire was removed with the catheter in place. Retrograde pyelogram was performed which showed significant narrowing at the UPJ, with severe hydronephrosis. At this time I passed the wire through the catheter, and the wire location was confirmed on fluoroscopy to be in the renal pelvis. Next under fluoroscopy a 4.8-Qatari by 24 cm stent was passed over the wire, I was able to advance the stent past the UPJ narrowing and into the kidney. The proximal curl was visualized on fluoroscopy and the distal curl was visualized using the cystoscope. The bladder was emptied at the end of the case. Patient tolerated procedure well was taken to recovery in stable condition
--- NOTE | 2022-03-23 17:58 | FL ---
Intraoperative/procedural fluoroscopic services were provided. Total fluoroscopy time is 22 seconds w ith a total of 1 submitted images to PACS. Please see the operative/procedural note for further detai ls.
[2022-03-23] MEDS: PRAVASTATIN SODIUM 40 MG TAB PO SCH (20:31)
[2022-03-23] MEDS: ACETAMINOPHEN TAB 325 MG TAB PO PRN (21:01)
[2022-03-24] MEDS ORDERED: HYDROcodone/APAP 5-325MG 1 EACH TAB PO PRN (01:06)
[2022-03-24] MEDS: SODIUM CHLORIDE 0.9% 1,000 ML IV SCH (03:18)
[2022-03-24 04:13] VITALS: PULSE 74
[2022-03-24 08:12] VITALS: BP 120/78; RESP 16; TEMP 98.4
[2022-03-24] MEDS: ESCITALOPRAM 10 MG TAB PO SCH (08:26)
[2022-03-24] MEDS: PANTOPRAZOLE 40 MG TABLET PO SCH (08:26)
[2022-03-24] MEDS: SPIRONOLACTONE 25 MG TAB PO SCH (08:27)
[2022-03-24] MEDS: ACETAMINOPHEN TAB 325 MG TAB PO PRN (08:32)
--- NOTE | 2022-03-24 08:51 | P.DS ---
Providers Date of admission: 03/22/22 09:49 Attending physician: Tye Romo MD Primary care physician: [facility] Course: This is a 71-year-old female with history of left ureteral stone, admitted to the hospital with intractable pain. On presentation her urinalysis was concerning for UTI, she was subsequently started on IV antibiotics. She underwent a stent insertion on March 23. She was discharged home on March 24. At time of discharge wshe as tolerating a diet, ambulating, pain was controlled Patient Condition at Discharge: Stable Plan - Discharge Summary Discharge Rx Participant: No New Discharge Prescriptions: New Cephalexin [Keflex] 500 mg PO Q8HR #15 cap No Action Aspirin 81 mg PO DAILY Cholecalciferol [Vitamin D3 (25 Mcg = 1000 Iu)] 25 mcg PO DAILY Spironolactone [Aldactone] 12.5 mg PO DAILY Biotin 5 mg PO DAILY Escitalopram [Lexapro] 10 mg PO DAILY Denosumab [Prolia] 60 mg SQ Q180D Calcium Carbonate/Vitamin D3 [Calcium 600 mg-Vit D3 5 mcg (200 unit)] 1 tab PO DAILY Omeprazole 20 mg PO BID Multivit-Min/Iron/Folic/Lutein [Centrum Silver Women Tablet] 1 tab PO DAILY Pravastatin Sodium [Pravachol] 40 mg PO HS amLODIPine BESYLATE/BENAZEPRIL [amLODIPine BESYLATE/BENAZEPRIL 10-20 mg] 1 cap PO DAILY Discharge Medication List Aspirin 81 mg PO DAILY 06/10/14 [History] Cholecalciferol [Vitamin D3 (25 Mcg = 1000 Iu)] 25 mcg PO DAILY 02/25/16 [History] Biotin 5 mg PO DAILY 02/03/21 [History] Denosumab [Prolia] 60 mg SQ Q180D 02/03/21 [History] Escitalopram [Lexapro] 10 mg PO DAILY 02/03/21 [History] Multivit-Min/Iron/Folic/Lutein [Centrum Silver Women Tablet] 1 tab PO DAILY 02/03/21 [History] Spironolactone [Aldactone] 12.5 mg PO DAILY 02/03/21 [History] Pravastatin Sodium [Pravachol] 40 mg PO HS 02/05/22 [History] amLODIPine BESYLATE/BENAZEPRIL [amLODIPine BESYLATE/BENAZEPRIL 10-20 mg] 1 cap PO DAILY 02/05/22 [History] Calcium Carbonate/Vitamin D3 [Calcium 600 mg-Vit D3 5 mcg (200 unit)] 1 tab PO DAILY 03/22/22 [History] Omeprazole 20 mg PO BID 03/22/22 [History] Cephalexin [Keflex] 500 mg PO Q8HR #15 cap 03/24/22 [Rx] Follow up Appointment(s)/Referral(s): Eder Canada MD [Primary Care Provider] - 1-2 days Jaden Olsen MD [STAFF PHYSICIAN] - 1 Week Activity/Diet/Wound Care/Special Instructions: follow-up with Dr. Olsen in 1 week increase fluid intake, it's normal to see blood in the urine
== END 2022-03-24 10:04 | disposition home or self-care (01) ==
LOC: EC 06:24 → 6NMEDSUR 09:49
PROVIDERS: ADMIT Urology; ATTEND Urology
DX: N13.2 Hydronephrosis with renal and ureteral calculous obstruction (principal); Z87.442 Personal history of urinary calculi; Z87.440 Personal history of urinary (tract) infections; K21.9 Gastro-esophageal reflux disease without esophagitis; E78.5 Hyperlipidemia, unspecified; I10 Essential (primary) hypertension; M19.90 Unspecified osteoarthritis, unspecified site; M81.0 Age-related osteoporosis without current pathological fracture; G89.29 Other chronic pain; G43.909 Migraine, unspecified, not intractable, without status migrainosus; M54.9 Dorsalgia, unspecified; K44.9 Diaphragmatic hernia without obstruction or gangrene; Z98.890 Other specified postprocedural states; Z98.42 Cataract extraction status, left eye; Z98.41 Cataract extraction status, right eye; Z82.49 Family history of ischemic heart disease and other diseases of the circulatory system; Z82.3 Family history of stroke; Z79.82 Long term (current) use of aspirin; Z79.899 Other long term (current) drug therapy; Z91.041 Radiographic dye allergy status
CPT/HCPCS: 52332; 96376; 96374; 96375; 99285; 36415; 80053; 80048; 83605; 83690; 85025 ×2; 81001; 87086; 74420; 74176; G0378 ×3; C2625; C1769; J2270 ×2; J0690; J2405 ×2; J0696; J3010; J1885 ×2; J2704; J1170; Q9967; J2001

== ENCOUNTER 2022-04-14 09:53 | Day surgery (SDC) | payer MEDICARE ==
[2022-04-13 12:19] VITALS: BMI 28.3
--- NOTE | 2022-04-13 18:52 | P.GSHP ---
History of Present Illness H&P Date: 04/13/22 71 yo female with a history of recurrent urolithiasis and persistent utis recently was in the hospital with and obstructing 6 mm left ureteral stone and pyonephrosis. A stent was placed and antibiotics were given. he now comes for ureteroscopy left with stent and stone removal. She also has some small calyceal stones that I will laser too - Constitutional Constitutional: Denies chills, Denies fever - EENT Eyes: denies blurred vision, denies pain Ears, nose, mouth and throat: Denies headache, Denies sore throat - Cardiovascular Cardiovascular: Denies chest pain, Denies shortness of breath - Respiratory Respiratory: Denies cough, Denies 7 - Gastrointestinal Gastrointestinal: Denies abdominal pain, Denies diarrhea, Denies nausea, Denies vomiting - Genitourinary (Female) Genitourinary: Denies dysuria, Denies hematuria - Genitourinary (Male) Genitourinary: Denies dysuria, Denies hematuria - Musculoskeletal Musculoskeletal: Denies myalgias - Integumentary Integumentary: Denies pruritus, Denies rash - Neurological Neurological: Denies numbness, Denies weakness - Psychiatric Psychiatric: Denies anxiety, Denies depression - Endocrine Endocrine: Denies fatigue, Denies weight change Past Medical History Past Medical History: GERD/Reflux, Hyperlipidemia, Hypertension, Osteoarthritis (OA), Renal Disease Additional Past Medical History / Comment(s): Medullary sponge kidney and kidney stones, UTIs, osteoporosis, hiatal hernia, gastritis, chronic back pain, migraines History of Any Multi-Drug Resistant Organisms: None Reported Past Surgical History: Section, Orthopedic Surgery Additional Past Surgical History / Comment(s): Multiple surgeries for kidney stones/cysto's/litho's/double J stents/since removed, R wrist cyst that caused bone fracture, pain clinic procedures, EGD, colonoscopy, bilateral catarct removals. Past Anesthesia/Blood Transfusion Reactions: Motion Sickness Additional Past Anesthesia/Blood Transfusion Reaction / Comment(s): Pt has clausterphobia. Past Psychological History: No Psychological Hx Reported Smoking Status: Never smoker Past Alcohol Use History: None Reported Past Drug Use History: None Reported - Past Family History Father Family Medical History: Myocardial Infarction (HI) Additional Family Medical History / Comment(s): Father is . Mother Family Medical History: CVA/TIA, Hyperlipidemia, Hypertension Additional Family Medical History / Comment(s): Mother is 96 yrs old. Medications and Allergies Home Medications Medication Instructions Recorded Confirmed Type Aspirin 81 mg PO DAILY 06/10/14 04/13/22 History Cholecalciferol [Vitamin D3 (25 25 mcg PO DAILY 02/25/16 04/13/22 History Mcg = 1000 Iu)] Biotin 100 mg PO DAILY 02/03/21 04/13/22 History Denosumab [Prolia] 60 mg SQ Q180D 02/03/21 04/13/22 History Escitalopram [Lexapro] 10 mg PO QAM 02/03/21 04/13/22 History Multivit-Min/Iron/Folic/Lutein 1 tab PO DAILY 02/03/21 04/13/22 History [Centrum Silver Women Tablet] Spironolactone [Aldactone] 12.5 mg PO DAILY 02/03/21 04/13/22 History Pravastatin Sodium [Pravachol] 40 mg PO HS 02/05/22 04/13/22 History amLODIPine BESYLATE/BENAZEPRIL 1 cap PO QAM 02/05/22 04/13/22 History [amLODIPine BESYLATE/BENAZEPRIL 10-20 mg] Calcium Carbonate/Vitamin D3 1 tab PO DAILY 03/22/22 04/13/22 History [Calcium 600 mg-Vit D3 5 mcg (200 unit)] Omeprazole 20 mg PO BID 03/22/22 04/13/22 History hydroCHLOROthiazide [Hydrodiuril] 25 mg PO DAILY 04/13/22 04/13/22 History Allergies Allergy/AdvReac Type Severity Reaction Status Date / Time Iodinated Contrast Media Allergy Rash/Hives Verified 04/13/22 11:23 Surgical - Exam - General well developed, well nourished, no distress - Eyes normal ocular movement, no icteric - ENT no hearing loss, no congestion - Neck no masses, trachea midline - Respiratory normal respiratory effort, clear to auscultation - Abdomen Abdomen: soft, non tender, no guarding, no rigid, no rebound - Integumentary no rash, no abnormal pigmentation - Neurologic no disoriented, no combative - Psychiatric oriented to time, oriented to person, oriented to place, speech is normal, memory intact Results - Imaging CT scan - abdomen: report reviewed, image reviewed CT scan - pelvis: report reviewed, image reviewed Assessment and Plan Assessment: Impression: Left ureteral stone. Plan Left ureteroscopy with stent and stone removal
[~2022-04-14 09:53] MED LIST changes: +AMPICILLIN 1,000 MG in SODIUM CHLORIDE 0.9% 50 ML IVPB PRN; +GENTAMICIN 80 MG in SODIUM CHLORIDE 0.9% 100 ML IVPB PRN; +LIDOCAINE 1% (10MG/ML) FOR IV START INTRADERMA PRN; +ONDANSETRON 4 MG/2 ML VIAL IVP ONE
--- NOTE | 2022-04-14 10:13 | XR ---
EXAMINATION TYPE: XR KUB DATE OF EXAM: 04/14/2022 10:07 AM INDICATION: Patient age:Female; 71 years old; Reason for study: Pre Op KUB. COMPARISON: None. TECHNIQUE: One radiographic view of the abdomen was obtained. FINDINGS: Interval placement of left ureteral stent. Proximal and distal portions appear in appropria te position. Calcific density seen on prior are not definitively visualized. There is mild scoliosis changes of the spine with disc degeneration changes. Multiple pelvic fullness are present. IMPRESSION: Interval left ureteral stent placement with distal and proximal portions in appropriate position.
[2022-04-14] MEDS ORDERED: LACTATED RINGERS 1,000 ML IV ONE ×2 (10:38→13:37)
[2022-04-14] MEDS ORDERED: LIDOCAINE 2% INJ 20 MG/ML (2 ML VIAL) ONE (11:42)
[2022-04-14] MEDS ORDERED: PHENYLEPHRINE-0.9% NACL SYG 1,000 MCG/10 ML SYRINGE ONE (11:42)
[2022-04-14] MEDS ORDERED: PROPOFOL 10 MG/ML 20 ML VIAL IV ONE (11:42)
[2022-04-14] MEDS ORDERED: MIDAZOLAM 2 MG/2 ML VIAL ONE (11:42)
[2022-04-14] MEDS ORDERED: SUCCINYLCHOLINE CHLORIDE 200 MG/10 ML VIAL IV ONE (11:42)
[2022-04-14] MEDS ORDERED: fentaNYL (PF) 50 MCG/ML 2 ML AMP ONE (11:42)
--- NOTE | 2022-04-14 13:04 | P.OP ---
Date of Procedure: 04/14/22 Preoperative Diagnosis: Left ureteral and renal calculi, recurrent urinary tract infection Postoperative Diagnosis: Same Procedure(s) Performed: Cystoscopy, removal double-J catheter left, left ureteroscopy with laser lithotripsy, left renoscopy with laser lithotripsy and stone basketing, placement of 624 stent Anesthesia: JAMES Surgeon: Jaden Olsen Estimated Blood Loss (ml): 0 Pathology: other (Stone) Condition: stable Disposition: PACU Indications for Procedure: The patient is 71. She has recurrent urolithiasis, calcium oxalate. She has renal tubular stones. She recently had a 7 mm proximal ureteral stone treated with a stent and antibiotics that she was septic. She does have recurrent urine infections. We have attempted several times to remove stones. She has multiple bilateral tiny calyceal stones as well as renal tubular stones. I will remove the left ureteral stone and laser the left calyceal stones as identifiable Description of Procedure: Patient brought operating suite. Given a general anesthetic. Placed lithotomy position with sterile prep and drape. The bladder is intubated with a 21-Frisian sheath and scope. The stent is identified and grasped and pulled to the urethral meatus. An 035 wires passed up the ureteral stent into the left renal pelvis. The stent is removed and over the wires passed a 70-81-Craeim reentry ureteral sheath. The inner sheath is removed. I passed the flexible ureteroscope up to the stone. With the 270 laser probe the stone was broken into tiny fragments neither basketed are flushed out of the ureter. There is a fair amount of edema where the stone had lodged in the proximal left ureter. I reintroduced the wire into the left renal pelvis. I reintroduced the inner sheath over the wire into the outer sheath. I advanced the ureteral sheath up in the renal pelvis. Again removed the wire and the inner sheath. I passed the flexible ureteroscope up into the collecting system. I tediously identify each calyx. I used the same laser probe to break up the obvious calyceal stones. There are couple of renal tubular stones are about ready to rupture into the collecting system and these are also lasered. I basket the largest fragments. I look into each upper mid lower pole calyces . At the end of the procedure there is no obvious remaining surgical stones. I removed the ureteroscope. Through the ureteral sheath an 035 wires passed up into the renal pelvis. I removed the ureteral sheath and I passed a 6 x 24 double-J catheter that coils in the left renal pelvis and in the bladder. The patient is awakened and returned recovery room good condition. She will be discharged home upon recovery and found the office in one week for stent removal
[2022-04-14 13:11] VITALS: TEMP 97.6
--- NOTE | 2022-04-14 13:15 | FL ---
Intraoperative/procedural fluoroscopic services were provided. Total fluoroscopy time is 39 seconds w ith a total of 1 submitted images to PACS. Please see the operative/procedural note for further detai ls.
[2022-04-14] MEDS ORDERED: ONDANSETRON 4 MG/2 ML VIAL IVP ONE (13:21)
[2022-04-14] MEDS: HYDROmorphone 0.5 MG/0.5 ML SYRINGE IVP PRN ×2 (13:32→13:53)
[2022-04-14] MEDS ORDERED: diphenhydrAMINE 50 MG/ML 1 ML VIAL IVP ONE (13:55)
[2022-04-14] MEDS ORDERED: KETOROLAC 15 MG/ML 1 ML VIAL IVP ONE (13:59)
[2022-04-14 14:21] VITALS: RESP 16
[2022-04-14] MEDS ORDERED: RACEPINEPHRINE 2.25% NEB 0.5 ML NEBU INHALATION ONE (15:29)
[2022-04-14 15:41] VITALS: BP 101/66; PULSE 83
== END 2022-04-14 16:31 | disposition home or self-care (01) ==
LOC: OR 09:53
PROVIDERS: ATTEND Urology
DX: N20.2 Calculus of kidney with calculus of ureter (principal); N39.0 Urinary tract infection, site not specified; K21.9 Gastro-esophageal reflux disease without esophagitis; E78.5 Hyperlipidemia, unspecified; I10 Essential (primary) hypertension; M19.90 Unspecified osteoarthritis, unspecified site; M81.0 Age-related osteoporosis without current pathological fracture; K44.9 Diaphragmatic hernia without obstruction or gangrene; M54.9 Dorsalgia, unspecified; F10.99 Alcohol use, unspecified with unspecified alcohol-induced disorder; G89.29 Other chronic pain; K29.70 Gastritis, unspecified, without bleeding; G43.909 Migraine, unspecified, not intractable, without status migrainosus; Q61.5 Medullary cystic kidney; N28.9 Disorder of kidney and ureter, unspecified; Z98.890 Other specified postprocedural states; Z98.41 Cataract extraction status, right eye; Z98.42 Cataract extraction status, left eye; Z79.899 Other long term (current) drug therapy; Z82.49 Family history of ischemic heart disease and other diseases of the circulatory system; Z82.3 Family history of stroke; Z83.438 Family history of other disorder of lipoprotein metabolism and other lipidemia; Z91.041 Radiographic dye allergy status
CPT/HCPCS: 52356; 82365; 74018; C2625; C1769; J2250; J0330; J1200; J2405; J3010; J1885; J2370; J2704; J1170; J2001

== ENCOUNTER → 2022-04-21 | Outpatient (CLI) | payer MEDICARE ==
--- NOTE | 2022-04-21 12:16 | BD ---
EXAMINATION TYPE: Axial Bone Density DATE OF EXAM: 04/21/2022 COMPARISON: 07.02.2013 CLINICAL HISTORY: 71 years year old Female. ICD-10 CODE: M81.0 AGE-RELATED OSTEOPOROSIS Height: 60 Weight: 151 FRAX RISK QUESTIONS: Secondary Osteoporosis: RISK FACTORS HISTORY OF: Surgery to Wrist (right): YES When: 50 YEARS AGO Family History of Osteoporosis: YES Postmenopausal woman: YES Lost more than 2 inches in height since high school: YES MEDICATIONS: Osteoporosis Medications: Which medication: PROLIA SHOT How Lon YEARS Additional Medications: BP MEDS, CHOLESTEROL MED, REFLUX MED, CALCIUM, VITAMIN D Additional History: KIDNEY STONES EXAM MEASUREMENTS: Bone mineral densitometry was performed using the [facility]. Bone mineral density as measured about the Lumbar spine is: ----- L1-L4(G/cm2): 1.383 T Score Values are as follows: ----- L1: 0.5 ----- L2: 0.1 ----- L3: 2.3 ----- L4: 3.3 ----- L1-L4: 1.7 Bone mineral density has: Increased 18.7% since study of: 07.02.2013 Bone mineral density about the R hip (g/cm2): 0.849 Bone mineral density about the L hip (g/cm2): 0.827 T Score values are as follows: -----R Neck: -1.7 -----L Neck: -1.7 -----R Total: -1.3 -----L Total: -1.4 Bone mineral density has: Increased 1.2% since study of: 07.02.2013 FRAX%s: The graph provided illustrates a 11.4% chance for a major osteoporotic fx and a 2.3% chance f or the hips probability for fx in 10 years time. IMPRESSION: Osteopenia (T Score between -2.5 and -1). There is slightly increased risk of fracture and the patient may be considered for treatment. Re-Screen 2-5 years. NOTE: T-SCORE=SD OF THE YOUNG ADULT MEAN.
--- NOTE | 2022-04-22 08:49 | MM ---
Reason for Exam: Screening (asymptomatic). Last screening mammogram was performed 12 month(s) ago. Patient History: Menarche at age 10. First Full-Term at age 22. Postmenopausal. Risk Values: Naomi 5 year model risk: 1.6%. NCI Lifetime model risk: 3.9%. Prior Study Comparison: 03/29/2019 Bilateral Screening Mammogram, [facility]. 04/04/2020 Bilateral Screening Mammogram, [facility]. 04/15/2021 Bilateral Screening Mammogram, [facility]. Tissue Density: There are scattered fibroglandular densities. Findings: Analyzed By CAD. There is no suspicious group of microcalcifications or new suspicious mass in either breast. Overall Assessment: Negative, BI-RAD 1 Management: Screening Mammogram of both breasts in 1 year. A clinical breast exam by your physician is recommended on an annual basis and results should be correlated with mammographic findings. [facility] will attempt to contact patient to return for supplemental views and ultrasound if indicated. Electronically signed and approved by: Dinh Wilkes DO
== END | disposition home or self-care (01) ==
LOC: RADMAMWWP 11:34
PROVIDERS: ATTEND Internal Medicine Geriatric Medicine
DX: Z12.31 Encounter for screening mammogram for malignant neoplasm of breast (principal); M85.89 Other specified disorders of bone density and structure, multiple sites; Z78.0 Asymptomatic menopausal state
CPT/HCPCS: 77063; 77067; 77080

== ENCOUNTER → 2022-05-18 | Outpatient (CLI) | payer MEDICARE ==
--- NOTE | 2022-05-18 18:32 | CT ---
EXAMINATION TYPE: CT soft tissue neck w con CT DLP: 531.1 mGycm, Automated exposure control for dose reduction was used. DATE OF EXAM: 05/18/2022 4:59 PM COMPARISON: None. 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 Axial sections with coronal and sagittal reformats were obtained. Contrast used:80cc mL of Isovue 300 with IV Contrast, Oral contrast used: none. FINDINGS: Brain: Visualized portions are grossly unremarkable. Orbits: Unremarkable Sinuses: Grossly unremarkable. Spaces of the neck: Clear and symmetric. Musculoskeletal: No acute osseous pathology., Mild multilevel disc degeneration changes throughout th e spine. Lymph nodes: Multiple nonenlarged lymph nodes are seen along both anterior chains of the neck. Vascular structures: Visualized major arteries are patent without evidence of aneurysm. Thoracic Inlet/airway: Airway is patent. The lung apices are clear. Soft tissues/Thyroid: Thyroid and remainder of the soft tissues are unremarkable. No evidence for mas s in the mediastinum near the aortic arch there is trace amount of fluid in the pericardial recesses. Other: none. IMPRESSION 1. No definite evidence for mass or any finding to correlate with vocal cord paralysis. Spaces of the neck are relatively symmetric,
== END | disposition home or self-care (01) ==
LOC: RADCTMAIN 15:34
PROVIDERS: ATTEND Otolaryngology
DX: J38.01 Paralysis of vocal cords and larynx, unilateral (principal)
CPT/HCPCS: 82565; 84520; 70491; 36415; Q9967

== ENCOUNTER 2022-05-21 11:15 | Emergency (ER) | payer MEDICARE ==
--- NOTE | 2022-05-21 11:25 | ED ---
Syncope HPI - General Stated Complaint: Syncope Time Seen by Provider: 05/21/22 11:20 Source: patient, family, EMS, RN notes reviewed Mode of arrival: EMS - History of Present Illness Initial Comments: 71-year-old female with a recent history of kidney stones also vocal cord issues after extubation also a recent IV contrast reaction to presents from his doctor's office after getting cortisone injections in the hip after which she apparently had a syncopal episode. No reports of any trauma patient. Had a issue in the past with a blood draw for she passed out she's not sure if this is a same type of situation. She does complain of an itchy rash which she has since the IV contrast was given to her this previously this week. She denies any overt shortness of breath cough phlegm production loss of function to her upper or lower extremity no other current complaints of that she's nauseated at this time. MD Complaint: loss of consciousness - Related Data Home Medications Medication Instructions Recorded Confirmed Aspirin 81 mg PO DAILY 06/10/14 05/21/22 Cholecalciferol [Vitamin D3 (25 25 mcg PO DAILY 02/25/16 05/21/22 Mcg = 1000 Iu)] Biotin 5 mg PO DAILY 02/03/21 05/21/22 Denosumab [Prolia] 60 mg SQ Q180D 02/03/21 05/21/22 Escitalopram [Lexapro] 10 mg PO DAILY 02/03/21 05/21/22 Multivit-Min/Iron/Folic/Lutein 1 tab PO DAILY 02/03/21 05/21/22 [Centrum Silver Women Tablet] Spironolactone [Aldactone] 12.5 mg PO DAILY 02/03/21 05/21/22 Pravastatin Sodium [Pravachol] 40 mg PO HS 02/05/22 05/21/22 amLODIPine BESYLATE/BENAZEPRIL 1 cap PO DAILY 02/05/22 05/21/22 [amLODIPine BESYLATE/BENAZEPRIL 10-20 mg] Calcium Carbonate/Vitamin D3 1 tab PO DAILY 03/22/22 05/21/22 [Calcium 600 mg-Vit D3 5 mcg (200 unit)] Omeprazole 20 mg PO BID 03/22/22 05/21/22 hydroCHLOROthiazide [Hydrodiuril] 25 mg PO DAILY 04/13/22 05/21/22 Albuterol Sulfate [Proventil Hfa] 2 puff INHALATION RT-QID PRN 05/21/22 05/21/22 HYDROcodone/APAP 5-325MG [Belle 1 - 2 tab PO Q4HR PRN 05/21/22 05/21/22 5-325] Allergies Allergy/AdvReac Type Severity Reaction Status Date / Time Iodinated Contrast Media Allergy Rash/Hives Verified 05/21/22 13:33 Review of Systems ROS Statement: Those systems with pertinent positive or pertinent negative responses have been documented in the HPI. ROS Other: All systems not noted in ROS Statement are negative. Past Medical History Past Medical History: GERD/Reflux, Hyperlipidemia, Hypertension, Osteoarthritis (OA), Renal Disease Additional Past Medical History / Comment(s): Medullary sponge kidney and kidney stones, UTIs, osteoporosis, hiatal hernia, gastritis, chronic back pain, migraines History of Any Multi-Drug Resistant Organisms: None Reported Past Surgical History: Section, Orthopedic Surgery Additional Past Surgical History / Comment(s): Multiple surgeries for kidney stones/cysto's/litho's/double J stents/since removed, R wrist cyst that caused bone fracture, pain clinic procedures, EGD, colonoscopy, bilateral catarct removals. Past Anesthesia/Blood Transfusion Reactions: Motion Sickness Additional Past Anesthesia/Blood Transfusion Reaction / Comment(s): Pt has clausterphobia. Past Psychological History: No Psychological Hx Reported Smoking Status: Never smoker Past Alcohol Use History: None Reported Past Drug Use History: None Reported - Past Family History Father Family Medical History: Myocardial Infarction (IA) Additional Family Medical History / Comment(s): Father is . Mother Family Medical History: CVA/TIA, Hyperlipidemia, Hypertension Additional Family Medical History / Comment(s): Mother is 96 yrs old. General Exam - General Exam Comments Initial Comments: This is a well-developed well-nourished awake alert oriented 4 female General appearance: alert, anxious Head exam: Present: atraumatic, normocephalic, normal inspection Eye exam: Present: normal appearance, PERRL, EOMI. Absent: scleral icterus, conjunctival injection, periorbital swelling ENT exam: Present: normal exam, mucous membranes moist Neck exam: Present: normal inspection, full ROM, other (No stridor JVD or bruits). Absent: tenderness, meningismus, lymphadenopathy Respiratory exam: Present: normal lung sounds bilaterally. Absent: respiratory distress, wheezes, rales, rhonchi, stridor Cardiovascular Exam: Present: regular rate, normal rhythm, normal heart sounds. Absent: systolic murmur, diastolic murmur, rubs, gallop, clicks GI/Abdominal exam: Present: soft, normal bowel sounds. Absent: distended, tenderness, guarding, rebound, rigid, bruit, pulsatile mass Extremities exam: Present: normal inspection, full ROM, normal capillary refill. Absent: tenderness, pedal edema, joint swelling, calf tenderness Back exam: Present: normal inspection Neurological exam: Present: alert, oriented X3, CN II-XII intact Psychiatric exam: Present: normal affect, normal mood Skin exam: Present: warm, dry, intact, erythema. 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 Patient will be at discharged I did recommend increase oral fluids we did discuss treatment of ALLERGIC reactions or rash she does have a prescription from Dr. Dobbins for the same. Patient would like to go home she will be discharged - Lab Data Result diagrams: 05/21/22 11:37 05/21/22 11:37 Lab Results 05/21/22 05/21/22 05/21/22 Range/Units 11:37 11:37 11:37 WBC 10.6 (3.8-10.6) k/uL RBC 5.29 (3.80-5.40) m/uL Hgb 15.4 D (11.4-16.0) gm/dL Hct 48.0 H (34.0-46.0) % MCV 90.7 D (80.0-100.0) fL MCH 29.0 (25.0-35.0) pg MCHC 32.0 (31.0-37.0) g/dL RDW 13.2 (11.5-15.5) % Plt Count 296 (150-450) k/uL MPV 8.7 Neutrophils % 75 % Lymphocytes % 14 % Monocytes % 4 % Eosinophils % 6 % Basophils % 0 % Neutrophils # 7.9 H (1.3-7.7) k/uL Lymphocytes # 1.5 (1.0-4.8) k/uL Monocytes # 0.4 (0-1.0) k/uL Eosinophils # 0.6 (0-0.7) k/uL Basophils # 0.0 (0-0.2) k/uL Sodium 137 (137-145) mmol/L Potassium 4.5 (3.5-5.1) mmol/L Chloride 101 (98-107) mmol/L Carbon Dioxide 25 (22-30) mmol/L Anion Gap 11 mmol/L BUN 22 H (7-17) mg/dL Creatinine 1.02 (0.52-1.04) mg/dL Est GFR (CKD-EPI)AfAm 63 (>60 ml/min/1.73 sqM) Est GFR (CKD-EPI)NonAf 55 (>60 ml/min/1.73 sqM) Glucose 112 H (74-99) mg/dL Calcium 9.1 (8.4-10.2) mg/dL Magnesium 1.9 (1.6-2.3) mg/dL Total Bilirubin 0.6 (0.2-1.3) mg/dL AST 34 (14-36) U/L ALT 24 (4-34) U/L Alkaline Phosphatase 41 (38-126) U/L Creatine Kinase 47 (30-135) U/L Troponin I <0.012 (0.000-0.034) ng/mL Total Protein 7.1 (6.3-8.2) g/dL Albumin 4.3 (3.5-5.0) g/dL Urine Color Urine Appearance (Clear) Urine pH (5.0-8.0) Ur Specific Jackson (1.001-1.035) Urine Protein (Negative) Urine Glucose (UA) (Negative) Urine Ketones (Negative) Urine Blood (Negative) Urine Nitrite (Negative) Urine Bilirubin (Negative) Urine Urobilinogen (<2.0) mg/dL Ur Leukocyte Esterase (Negative) Urine RBC (0-5) /hpf Urine WBC (0-5) /hpf Hyaline Casts (0-2) /lpf 05/21/22 Range/Units 14:06 WBC (3.8-10.6) k/uL RBC (3.80-5.40) m/uL Hgb (11.4-16.0) gm/dL Hct (34.0-46.0) % MCV (80.0-100.0) fL MCH (25.0-35.0) pg MCHC (31.0-37.0) g/dL RDW (11.5-15.5) % Plt Count (150-450) k/uL MPV Neutrophils % % Lymphocytes % % Monocytes % % Eosinophils % % Basophils % % Neutrophils # (1.3-7.7) k/uL Lymphocytes # (1.0-4.8) k/uL Monocytes # (0-1.0) k/uL Eosinophils # (0-0.7) k/uL Basophils # (0-0.2) k/uL Sodium (137-145) mmol/L Potassium (3.5-5.1) mmol/L Chloride (98-107) mmol/L Carbon Dioxide (22-30) mmol/L Anion Gap mmol/L BUN (7-17) mg/dL Creatinine (0.52-1.04) mg/dL Est GFR (CKD-EPI)AfAm (>60 ml/min/1.73 sqM) Est GFR (CKD-EPI)NonAf (>60 ml/min/1.73 sqM) Glucose (74-99) mg/dL Calcium (8.4-10.2) mg/dL Magnesium (1.6-2.3) mg/dL Total Bilirubin (0.2-1.3) mg/dL AST (14-36) U/L ALT (4-34) U/L Alkaline Phosphatase (38-126) U/L Creatine Kinase (30-135) U/L Troponin I (0.000-0.034) ng/mL Total Protein (6.3-8.2) g/dL Albumin (3.5-5.0) g/dL Urine Color Light Yellow Urine Appearance Clear (Clear) Urine pH 7.5 (5.0-8.0) Ur Specific Jackson 1.010 (1.001-1.035) Urine Protein Negative (Negative) Urine Glucose (UA) Negative (Negative) Urine Ketones Negative (Negative) Urine Blood Negative (Negative) Urine Nitrite Negative (Negative) Urine Bilirubin Negative (Negative) Urine Urobilinogen <2.0 (<2.0) mg/dL Ur Leukocyte Esterase Moderate H (Negative) Urine RBC 1 (0-5) /hpf Urine WBC 47 H (0-5) /hpf Hyaline Casts 1 (0-2) /lpf - Radiology Data Radiology results: report reviewed (Imaging reviewed his old before no acute findings), image reviewed Disposition Clinical Impression: Vasovagal syncope Disposition: HOME SELF-CARE Condition: Good Instructions (If sedation given, give patient instructions): Syncope (DC) Is patient prescribed a controlled substance at d/c from ED?: No Referrals: None,Stated [REFERRING] - 1-2 days Decision Date: 05/21/22 Decision Time: 15:17
[2022-05-21] MEDS ORDERED: SODIUM CHLORIDE 0.9% 1,000 ML IV STA (11:26)
[2022-05-21 11:36] VITALS: TEMP 97.7
[2022-05-21] MEDS ORDERED: ONDANSETRON 4 MG/2 ML VIAL IVP STA (12:17)
[2022-05-21 13:04] LABS: Basophils % (A) 0 %; Eosinophils # (A) 0.6 k/uL (0-0.7); Eosinophils % (A) 6 %; Lymphocytes # (A) 1.5 k/uL (1.0-4.8); Lymphocytes % (A) 14 %; Mean Platelet Volume 8.7; Monocytes # (A) 0.4 k/uL (0-1.0); Monocytes % (A) 4 %; Neutrophils # (A) 7.9 k/uL (1.3-7.7); Neutrophils % (A) 75 %; Platelet Count 296 k/uL (150-450); RBC 5.29 m/uL (3.80-5.40); RDW 13.2 % (11.5-15.5); WBC 10.6 k/uL (3.8-10.6)
[2022-05-21 13:13] LABS: HGB 15.4 gm/dL (11.4-16.0); MCV 90.7 fL (80.0-100.0)
--- NOTE | 2022-05-21 13:15 | XR ---
EXAMINATION TYPE: XR chest 2V DATE OF EXAM: 05/21/2022 12:51 PM COMPARISON: Chest radiographs from 04/18/2018 TECHNIQUE: XR chest 2V Frontal and lateral views of the chest. CLINICAL INDICATION:Female, 71 years old with history of syncope; FINDINGS: Lungs/Pleura: There is no evidence of pleural effusion, focal consolidation, or pneumothorax. Pulmonary vascularity: Unremarkable. Heart/mediastinum: Cardiomediastinal silhouette is unremarkable. Musculoskeletal: No acute osseous pathology. IMPRESSION: No acute cardiopulmonary disease/process.
[2022-05-21 13:32] LABS: Albumin 4.3 g/dL (3.5-5.0); Calcium 9.1 mg/dL (8.4-10.2); Magnesium 1.9 mg/dL (1.6-2.3); Total Bilirubin 0.6 mg/dL (0.2-1.3); Total Protein 7.1 g/dL (6.3-8.2)
[2022-05-21 14:14] LABS: Potassium 4.5 mmol/L (3.5-5.1)
[2022-05-21 14:22] LABS: Appearance,Urine Clear (Clear); Bilirubin,Urine Negative (Negative); Blood,Urine Negative (Negative); Color,Urine Light Yellow; Glucose,Urine (UA) Negative (Negative); Hyaline Casts,Urine 1 /lpf (0-2); Ketones,Urine Negative (Negative); Leukocyte Esterase,Urine Moderate (Negative); Nitrite,Urine Negative (Negative); PH, Urine 7.5 (5.0-8.0); Protein,Urine Negative (Negative); RBC,Urine 1 /hpf (0-5); Urobilinogen,Urine <2.0 mg/dL (<2.0); WBC,Urine 47 /hpf (0-5)
[2022-05-21 15:14] LABS: Prothrombin Time 10.4 sec (9.0-12.0)
[2022-05-21 15:19] LABS: Partial Thromboplastin Time 21.1 sec (22.0-30.0)
[2022-05-21 15:27] VITALS: BP 116/64; PULSE 72; RESP 20
== END 2022-05-21 15:27 | disposition home or self-care (01) ==
LOC: EC 11:15
DX: R55 Syncope and collapse (principal); K21.9 Gastro-esophageal reflux disease without esophagitis; E78.5 Hyperlipidemia, unspecified; I10 Essential (primary) hypertension; M19.90 Unspecified osteoarthritis, unspecified site; Z91.014 Allergy to mammalian meats; Z79.82 Long term (current) use of aspirin; Z79.899 Other long term (current) drug therapy
CPT/HCPCS: 36415; 93005; 80053; 82550; 83735; 84484; 85025; 85610; 85730; 81001; 87086; 71046; 99285; 96374; 96361 ×2; J2405

== ENCOUNTER → 2022-06-11 | Outpatient (CLI) | payer MEDICARE ==
[~2022-06-11] MED LIST changes: -AMPICILLIN 1,000 MG in SODIUM CHLORIDE 0.9% 50 ML IVPB PRN; +DENOSUMAB 60 MG/ML 1 ML SYRINGE SQ NR; -GENTAMICIN 80 MG in SODIUM CHLORIDE 0.9% 100 ML IVPB PRN; -LACTATED RINGERS 1,000 ML IV SCH; -LIDOCAINE 1% (10MG/ML) FOR IV START INTRADERMA PRN; -ONDANSETRON 4 MG/2 ML VIAL IVP ONE
[2022-06-11 09:58] VITALS: BP 108/70; PULSE 81; RESP 16; TEMP 97.9
== END ==
LOC: PROCWHC3 09:30
PROVIDERS: ATTEND Internal Medicine Geriatric Medicine
DX: M81.0 Age-related osteoporosis without current pathological fracture (principal); Z91.041 Radiographic dye allergy status
CPT/HCPCS: 96372; J0897

== ENCOUNTER 2022-12-07 06:58 | Day surgery (SDC) | payer MEDICARE ==
[2022-12-03 16:11] VITALS: BMI 28.3
[~2022-12-07 06:58] MED LIST changes: -DENOSUMAB 60 MG/ML 1 ML SYRINGE SQ NR; +LACTATED RINGERS 1,000 ML IV SCH
[2022-12-07 07:14] VITALS: TEMP 97.4
[2022-12-07] MEDS ORDERED: fentaNYL (PF) 50 MCG/ML 2 ML AMP ONE (08:00)
[2022-12-07] MEDS ORDERED: ROPIVACAINE 5 MG/ML 20 ML AMPULE ONE (08:00)
[2022-12-07] MEDS ORDERED: TRIAMCINOLONE ACETONIDE 40 MG/ML 1 ML VIAL ONE (08:00)
[2022-12-07] MEDS ORDERED: MIDAZOLAM 2 MG/2 ML VIAL ONE (08:00)
--- NOTE | 2022-12-07 08:37 | P.PCN ---
Date of Procedure: 12/07/22 Description of Procedure: PREOPERATIVE DIAGNOSIS: Lumbar spondylosis without myelopathy, morbid obesity POSTOPERATIVE DIAGNOSIS: Lumbar spondylosis without myelopathy,morbid obesity PROCEDURES : Radiofrequency thermocoagulation Bilateral L4-L5, and L5-S1 medial branch, with fluoroscopic guidance ANESTHESIA: IV moderate conscious sedation with fentanyl, versid and local infiltration with lidocaine 1% 5 ml Physician:Kellie Webster MD EBL: Minimal PROCEDURE INDICATION: The patient with low back pain secondary to lumbar facet arthropathy who had significant relief of pain with previous diagnostic lumbar medial branch block with Ropivacaine0.5%. PROCEDURE DESCRIPTION / TECHNIQUE: The patient was seen and identified in the preoperative area. Risks, benefits, complications, including but not limited to risk of infection ,bleeding , allergic reactions to the medications and no complete pain relief , and alternatives were discussed with the patient, the patient agreed to proceed with the procedure and signed the consent. IV was started. Vital signs remained stable throughout the procedure. Patient was taken to the OR and time out was completed. The patient was placed in the prone position on the procedure table. The lumber area was prepped and draped in the usual sterile fashion. . Vital signs were closely monitored during the procedure .IV sedation was used during the procedure to decrease patients anxiety. The target points were identified as follows: For the L5-S1 level which corresponds to the dorsal ramus of L5 the target point was at the superior medial aspect of the sacral ala on the Rt side of the spine on the AP view of fluoroscopy and for the L3, and L4 medial branches the target points were at the connection between the transverse process and the superior articular process of L4, and L5 vertebra respectively on the Rt oblique view of fluoroscopy. skin was marked, and localized with 1% lidocaineat these points. Subsequently, an 18 -qe radiofrequency needles with a 10-mm curved active tips were advanced guided by fluoroscopy to each of the target points mentioned above in a superior medial direction to get the active tips as parallel as possible to the medial branches tracks. AP, oblique, and lateral views of fluoroscopy were used to verify needle tips position. Each level then underwent motor testing at 2.5 Hz and 0 to 3 volt with local stimulation, but no radicular symptoms down the legs. I then injected 1 mL of lidocaine 1% in each needle before starting radiofrequency thermocoagulation at 80 degrees celsius for 90 seconds. After that I injected 1 ml of PF Ropivacaine 0.5%(3 mls) with 20 mg of Kenalog, 1 mL of this mixture was given in each needle before taking the needles out intact. Then the left side with the same levels was done in the same manner. At the end of the procedure, the skin was cleansed and bandages were applied. A copy of needle placement fluoroscopy was saved on the C-arm machine. COMPLICATIONS: No acute complications. DISPOSITION / PLANS: The patient was placed in a supine position and transferred to the recovery area in a stable condition for observation and was discharged from the recovery room after meeting discharge criteria. Home discharge instructions given to the patient by the staff. The patient was reexamined prior to discharge. The patient will schedule a follow up in the clinic in 2-4 weeks. Sedation time:
[2022-12-07] MEDS ORDERED: IV FLUID CONTINUATION 500 ML IV ONE (08:45)
[2022-12-07 08:49] VITALS: RESP 16
[2022-12-07 09:12] VITALS: BP 100/66; PULSE 61
--- NOTE | 2022-12-07 11:33 | FL ---
Intraoperative/procedural fluoroscopic services were provided for bilateral lumbar rad frequency. Tot al fluoroscopy time is 20 seconds with a total of 5 submitted images to PACS. Total DAP 0.02468 mGym2 . Please see the operative note for further details.
== END 2022-12-07 09:15 | disposition home or self-care (01) ==
LOC: ORPAIN 06:58
PROVIDERS: ATTEND Anesthesiology
DX: M47.816 Spondylosis without myelopathy or radiculopathy, lumbar region (principal); E66.01 Morbid (severe) obesity due to excess calories; Z91.041 Radiographic dye allergy status; Z68.41 Body mass index [BMI] 40.0-44.9, adult
CPT/HCPCS: 64636 ×2; 64635; 99152; 99153; J2250; J3301; J3010; J2795

== ENCOUNTER → 2022-12-10 | Outpatient (CLI) | payer MEDICARE ==
[~2022-12-10] MED LIST changes: +DENOSUMAB 60 MG/ML 1 ML SYRINGE SQ NR; -LACTATED RINGERS 1,000 ML IV SCH
[2022-12-10 09:26] VITALS: BP 118/70; PULSE 74; RESP 16; TEMP 97.9
== END ==
LOC: PROCWHC3 09:05
PROVIDERS: ATTEND Internal Medicine Geriatric Medicine
DX: M81.0 Age-related osteoporosis without current pathological fracture (principal)
CPT/HCPCS: 96372; J0897

== ENCOUNTER → 2022-12-23 | Outpatient (CLI) | payer MEDICARE ==
[2022-12-23 14:56] VITALS: BP 121/75; PULSE 58; RESP 18
--- NOTE | 2022-12-23 15:16 | P.PAINPG ---
PQRS Measure Charge Sheet Comment: A 72 yr old female w at side with a history of severe and chronic LBP secondary to lumbar DDD and spondylosis with facet arthropathy without myelopathy presents today for evaluation s/p BL RFA L4-L5, L5-S1. Pt states she experienced 75% pain relief s/p procedure. Pain level is provoked at 6 /10 in i ntensity, constant, localized in the lumbar spine, achy in character without shooting pain. Pain is provoked by lifting. Pain is alleviated with PT 2 yrs ago, heat, medications, topical, injections, repositioning and rest. Pt has had 15 lithotripsies and believes this pain is currently due to another kidney stone. Interventional pain procedures completed include BL RFA L3-L5 Patient is currently on [place], Tyl, Ibu Patient denies any side effects of the medication(s), denies excessive drowsiness or sleepiness, denies suicidal ideation and reports that the current pain medication is helping to control the pain and improve activities of daily living. Patient denies any motor or sensory deficits. Patient denies any fever or night sweats, denies any change in the bowel movements or urination. Physical Examination: -Constitutional: Cooperative. Not in acute distress . - Neurologic: Cranial nerve II to XII intact. No focal neurological deficits. - Psychatric: Alert & oriented x 3. Matching mood & appropriate affect. Judgment and insight intact. - Musculoskeletal: Cervical spine: Muscle bulk/ tone/ strength in the bilateral upper extremities normal Vertebral body tenderness to palpation over Spurling test positive Distraction test positive Facet loading test positive TTP Thoracic spine Muscle bulk / tone/ strength in the bilateral paraspinal muscles normal Vertebral body tender to palpation over Facet loading test positive TTP Lumbar spine: Motor bulk/ tone/ strength lower extremities , thigh and legs : 5/5 Deep tendon reflexes : Normal Knee Jerk. Normal Ankle Jerk . Vertebral body tenderness to palpation over Ludwig Test positive Lumbar Facet Loading Test positive Straight Leg Raise: positive at 30 degrees right side/ left side Gaenslen's Test positive Sacral spine : Severe tenderness over the Sacroiliac joint: right side / left side Range of motion: Flexion of the lumbar spine <60 degrees Range of motion: Extension of the lumbar spine <20 degrees Gaenslen's Test positive right side / left side Kellie test: positive right side / left side Thigh Thrust Test positive right side / left side Sacral Thrust Test positive right side / left side Assessment and plan: Chronic LBP secondary to lumbar DDD, spondylosis with facet arthropathy without myelopathy Exhibited substantial relief. May manage residual pain at home and return to clinic as needed. All questions answered. I have spent less than 30 minutes on patient care today. Dr Harrison was available by phone for the evaluation of this patient. The time was used to review the medical records including relevant urine studies and Prescription history (MAPs), review of the available imaging, evaluation and examination of the patient, coordination of care with the medical staff and if applicable referring physicians, as well as creation of the medical record PQRS Narrative: Smoking Status Never smoker Hx Alcohol Use (MH) Yes: SOCIAL Home Medications: Ambulatory Orders Aspirin 81 mg PO DAILY 06/10/14 Cholecalciferol [Vitamin D3 (25 Mcg = 1000 Iu)] 25 mcg PO DAILY 02/25/16 Biotin 5 mg PO DAILY 02/03/21 Denosumab [Prolia] 60 mg SQ Q180D 02/03/21 Escitalopram [Lexapro] 10 mg PO DAILY 02/03/21 Multivit-Min/Iron/Folic/Lutein [Centrum Silver Women Tablet] 1 tab PO DAILY 02/03/21 Spironolactone [Aldactone] 12.5 mg PO DAILY 02/03/21 Pravastatin Sodium [Pravachol] 40 mg PO HS 02/05/22 amLODIPine BESYLATE/BENAZEPRIL [amLODIPine BESYLATE/BENAZEPRIL 10-20 mg] 1 cap PO DAILY 02/05/22 Calcium Carbonate/Vitamin D3 [Calcium 600 mg-Vit D3 5 mcg (200 unit)] 1 tab PO DAILY 03/22/22 Omeprazole 20 mg PO BID 03/22/22 hydroCHLOROthiazide [Hydrodiuril] 25 mg PO DAILY 04/13/22 HYDROcodone/APAP 5-325MG [[place] 5-325] 1 - 2 tab PO Q4HR PRN 05/21/22 Controlled Substance Measures - Controlled Substance Measures Is patient prescribed a controlled substance at discharge?: No
== END ==
LOC: PNWHC3 13:58
PROVIDERS: ATTEND Anesthesiology
DX: M51.35 Other intervertebral disc degeneration, thoracolumbar region (principal); M47.817 Spondylosis without myelopathy or radiculopathy, lumbosacral region; G89.29 Other chronic pain; Z79.82 Long term (current) use of aspirin; Z91.041 Radiographic dye allergy status; M51.37 Other intervertebral disc degeneration, lumbosacral region
CPT/HCPCS: 99211

== ENCOUNTER → 2022-12-30 | Outpatient (CLI) | payer MEDICARE ==
--- NOTE | 2022-12-30 10:51 | US ---
EXAMINATION TYPE: US kidneys/renal and bladder DATE OF EXAM: 12/30/2022 COMPARISON: CT 03/22/2022 CLINICAL INDICATION: Female, 72 years old with history of N20.0 KIDNEY STONE; pain hx of stones EXAM MEASUREMENTS: Right Kidney: 9.4 x 4.2 x 3.5 cm Left Kidney: 10.6 x 4.8 x 4.5 cm Right Kidney: Echogenic areas seen largest lower pole 9 mm. Left Kidney: Multiple echogenic areas visualized compatible with stones seen on prior CT. Bladder: anechoic Bilateral Jets seen: yes There is no evidence for hydronephrosis at this point in time. No masses are identified. The urina ry bladder is anechoic. Bilateral ureteral jets are seen. IMPRESSION: 1. Bilateral renal calculi as seen on prior CT 03/22/2022 2. No obstructive uropathy.
== END | disposition home or self-care (01) ==
LOC: RADUSWWP 09:45
PROVIDERS: ATTEND Internal Medicine Geriatric Medicine
DX: N20.0 Calculus of kidney (principal)
CPT/HCPCS: 76770

== ENCOUNTER 2023-04-05 12:34 | Emergency (ER) | payer MEDICARE ==
[2023-04-05 12:42] VITALS: TEMP 98.8
[2023-04-05] MEDS ORDERED: KETOROLAC 15 MG/ML 1 ML VIAL IVP STA (13:16)
[2023-04-05] MEDS ORDERED: SODIUM CHLORIDE 0.9% 1,000 ML IV STA (13:16)
[2023-04-05] MEDS ORDERED: ONDANSETRON 4 MG/2 ML VIAL IVP STA (13:16)
[2023-04-05] MEDS ORDERED: MORPHINE SULFATE 2 MG/ML SYRINGE IVP STA (13:17)
--- NOTE | 2023-04-05 13:32 | ED ---
Female Urogenital HPI - General Chief complaint: Urogenital Stated complaint: kidney stone Time Seen by Provider: 04/05/23 12:47 Source: patient, RN notes reviewed Mode of arrival: ambulatory Limitations: no limitations - History of Present Illness Initial comments: This is a 72-year-old female who presents to the emergency department for flank pain. Patient states that this started 6 days ago. It is predominantly left- sided but does travel across the back as well. Reports associated nausea. She does have a substantial history of kidney stones and states that this feels the same. She also has burning with urination and feels like there are clumps in her urine. Denies any fevers, chills, sore throat, cough, dyspnea, chest pain, pal pitations, diarrhea, or headaches. MD Complaint: dysuria - Related Data Home Medications Medication Instructions Recorded Confirmed Aspirin 81 mg PO DAILY 06/10/14 12/23/22 Cholecalciferol [Vitamin D3 (25 25 mcg PO DAILY 02/25/16 12/23/22 Mcg = 1000 Iu)] Biotin 5 mg PO DAILY 02/03/21 12/23/22 Denosumab [Prolia] 60 mg SQ Q180D 02/03/21 12/23/22 Escitalopram [Lexapro] 10 mg PO DAILY 02/03/21 12/23/22 Multivit-Min/Iron/Folic/Lutein 1 tab PO DAILY 02/03/21 12/23/22 [Centrum Silver Women Tablet] Spironolactone [Aldactone] 12.5 mg PO DAILY 02/03/21 12/23/22 Pravastatin Sodium [Pravachol] 40 mg PO HS 02/05/22 12/23/22 amLODIPine BESYLATE/BENAZEPRIL 1 cap PO DAILY 02/05/22 12/23/22 [amLODIPine BESYLATE/BENAZEPRIL 10-20 mg] Calcium Carbonate/Vitamin D3 1 tab PO DAILY 03/22/22 12/23/22 [Calcium 600 mg-Vit D3 5 mcg (200 unit)] Omeprazole 20 mg PO BID 03/22/22 12/23/22 hydroCHLOROthiazide [Hydrodiuril] 25 mg PO DAILY 04/13/22 12/23/22 HYDROcodone/APAP 5-325MG [Cambridge 1 - 2 tab PO Q4HR PRN 05/21/22 12/23/22 5-325] Previous Rx's Medication Instructions Recorded HYDROcodone/APAP 7.5-325MG [Cambridge 1 tab PO Q6HR PRN 3 Days #12 tab 04/05/23 7.5-325] Ondansetron Odt [Zofran Odt] 4 mg PO Q8HR PRN #15 tab 04/05/23 cefUROXime axetiL [Cefuroxime] 500 mg PO BID 7 Days #14 tab 04/05/23 Allergies Allergy/AdvReac Type Severity Reaction Status Date / Time Iodinated Contrast Media Allergy Rash/Hives Verified 04/05/23 12:42 Review of Systems ROS Statement: Those systems with pertinent positive or pertinent negative responses have been documented in the HPI. ROS Other: All systems not noted in ROS Statement are negative. Past Medical History Past Medical History: GERD/Reflux, Hyperlipidemia, Hypertension, Osteoarthritis (OA), Renal Disease Additional Past Medical History / Comment(s): Medullary sponge kidney and kidney stones, UTIs, osteoporosis, hiatal hernia, gastritis, chronic back pain, migraines History of Any Multi-Drug Resistant Organisms: None Reported Past Surgical History: Section, Orthopedic Surgery Additional Past Surgical History / Comment(s): Multiple surgeries for kidney stones/cysto's/litho's/double J stents/since removed, R wrist cyst that caused bone fracture, pain clinic procedures, EGD, colonoscopy, bilateral catarct removals. Past Anesthesia/Blood Transfusion Reactions: Motion Sickness Additional Past Anesthesia/Blood Transfusion Reaction / Comment(s): Pt has claustrophobia. 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 Past Psychological History: Anxiety Smoking Status: Never smoker Past Alcohol Use History: None Reported Past Drug Use History: None Reported - Past Family History Father Family Medical History: Myocardial Infarction (DE) Additional Family Medical History / Comment(s): Father is . Mother Family Medical History: CVA/TIA, Hyperlipidemia, Hypertension Additional Family Medical History / Comment(s): Mother is 96 yrs old. General Exam Limitations: no limitations General appearance: alert, in no apparent distress Head exam: Present: atraumatic, normocephalic, normal inspection Respiratory exam: Present: normal lung sounds bilaterally. Absent: respiratory distress, wheezes, rales, rhonchi, stridor Cardiovascular Exam: Present: regular rate, normal rhythm, normal heart sounds. Absent: systolic murmur, diastolic murmur, rubs, gallop, clicks GI/Abdominal exam: Present: soft, normal bowel sounds. Absent: distended, tenderness, guarding, rebound, rigid Back exam: Present: CVA tenderness (L). Absent: CVA tenderness (R) Neurological exam: Present: alert, oriented X3, CN II-XII intact Psychiatric exam: Present: normal affect, normal mood Skin exam: Present: warm, dry, intact, normal color. Absent: rash Course Vital Signs 04/05/23 04/05/23 04/05/23 12:39 14:34 15:20 Temperature 98.8 F Pulse Rate 62 70 80 Respiratory 16 18 18 Rate Blood Pressure 92/66 100/64 103/67 O2 Sat by Pulse 96 98 99 Oximetry Medical Decision Making - Medical Decision Making This is a 72-year-old female who presents to the emergency department for flank pain. Was pt. sent in by a medical professional or institution? @ -No Did you speak to anyone other than the patient for history? @ -No Did you review nursing and triage notes? @ -Yes, and I agree, it is accurate with regards to the patient's symptoms. Were old charts reviewed? @ -No Differential Diagnosis? @ -Differential Flank Pain: UTI, pyelonephritis, kidney stone, musculoskeletal, pancreatitis, cholecystitis, this is not meant to be an all-inclusive list. EKG interpreted by me (3pts min.)? @ -Not obtained X-rays interpreted by me (1pt min.)? @ -Not obtained CT interpreted by me (1pt min.)? @ -Computed tomography scan of the abdomen and pelvis obtained. My i nterpretation identifies no evidence of a ureteral calculus. U/S interpreted by me (1pt. min.)? @ -Not obtained What testing was considered but not performed? (CT, X-rays, U/S, labs)? Why? @ -None What meds were considered but not given? Why? @ -None Did you discuss the management of the patient with other professionals? @ -No Did you reconcile home meds? @ -No Was smoking cessation discussed for >3mins.? @ -No Was critical care preformed (if so, how long)? @ -No Were there social determinants of health that impacted care today? How? (Homelessness, low income, unemployed, alcoholism, drug addiction, transport ation, low edu. Level, literacy, decrease access to med. care, [facility], rehab)? @ -No Was there de-escalation of care discussed even if they declined? (Discuss DNR or withdrawal of care, Hospice)? @ -No What co-morbidities impacted this encounter? (DM, HTN, Smoking, COPD, CAD, Cancer, CVA, Hep., AIDS, mental health diagnosis, sleep apnea, morbid obesity)? @ -Renal disease Was patient admitted / discharged? @ -Discharged. Lab work obtained revealing leukocytosis and signs of dehydration. Kidney function is stable when compared with prior values. Urinalysis revealed a large amount of blood was also consistent with infection. Computed tomography scan of the abdomen and pelvis obtained revealing similar dilation of the left renal collecting system that could be a sequela of prior calculus versus recently passed stone. Given her symptoms, this is most likely related to a recently passed stone. Her symptoms were well controlled in the emergency department and she was also given a liter bolus of IV fluids. Ceftriaxone administered for urinary tract infection. Urine was also sent for culture. Patient discharged home in stable condition. Because she cannot take NSAIDs in light of renal disease, I was willing to give her a prescription for a very short course of Cambridge. Prescription for Ceftin and Zofran provided as well with dosing instructions reviewed. Otherwise advised follow-up with her primary care provider. Undiagnosed new problem with uncertain prognosis? @ -None Drug Therapy requiring intensive monitoring for toxicity (Heparin, Nitro, Insulin, Cardizem)? @ -None Were any procedures done? @ -None Diagnosis/symptom? @ -UTI, flank pain Acute, or Chronic, or Acute on Chronic? @ -Acute Uncomplicated (without systemic symptoms) or Complicated (systemic symptoms)? @ -Uncomplicated Side effects of treatment? @ -None Exacerbation, Progression, or Severe Exacerbation] @ -Not applicable Poses a threat to life or bodily function? @ -No Return precautions reviewed in depth, the patient is instructed to return to the emergency department with any new, worsening, or concerning symptoms. Patient verbalized understanding. This case was discussed in detail with the attending ED physician, Dr. Peacock. Presentation, findings, and treatment plan discussed in detail as well. - Lab Data Result diagrams: 04/05/23 13:33 04/05/23 13:33 Lab Results 04/05/23 04/05/23 04/05/23 Range/Units 13:33 13:33 13:33 WBC 12.1 H (3.8-10.6) k/uL RBC 3.97 (3.80-5.40) m/uL Hgb 12.3 (11.4-16.0) gm/dL Hct 37.3 (34.0-46.0) % MCV 93.9 (80.0-100.0) fL MCH 31.1 (25.0-35.0) pg MCHC 33.1 (31.0-37.0) g/dL RDW 13.1 (11.5-15.5) % Plt Count 338 (150-450) k/uL MPV 8.3 Neutrophils % 79 % Lymphocytes % 13 % Monocytes % 6 % Eosinophils % 1 % Basophils % 0 % Neutrophils # 9.5 H (1.3-7.7) k/uL Lymphocytes # 1.5 (1.0-4.8) k/uL Monocytes # 0.7 (0-1.0) k/uL Eosinophils # 0.2 (0-0.7) k/uL Basophils # 0.0 (0-0.2) k/uL Sodium 135 L (137-145) mmol/L Potassium 4.5 (3.5-5.1) mmol/L Chloride 104 (98-107) mmol/L Carbon Dioxide 22 (22-30) mmol/L Anion Gap 9 mmol/L BUN 28 H (7-17) mg/dL Creatinine 1.00 (0.52-1.04) mg/dL Est GFR (CKD-EPI)AfAm 65 (>60 ml/min/1.73 sqM) Est GFR (CKD-EPI)NonAf 56 (>60 ml/min/1.73 sqM) Glucose 124 H (74-99) mg/dL Plasma Lactic Acid Jag (0.7-2.0) mmol/L Calcium 9.1 (8.4-10.2) mg/dL Total Bilirubin 0.9 (0.2-1.3) mg/dL AST 35 (14-36) U/L ALT 17 (4-34) U/L Alkaline Phosphatase 36 L (38-126) U/L Total Protein 6.6 (6.3-8.2) g/dL Albumin 3.8 (3.5-5.0) g/dL Amylase 45 (30-110) U/L Lipase 25 (23-300) U/L Urine Color Yellow Urine Appearance Turbid H (Clear) Urine pH 6.5 (5.0-8.0) Ur Specific Coats 1.011 (1.001-1.035) Urine Protein 2+ H (Negative) Urine Glucose (UA) Negative (Negative) Urine Ketones Negative (Negative) Urine Blood Moderate H (Negative) Urine Nitrite Negative (Negative) Urine Bilirubin Negative (Negative) Urine Urobilinogen <2.0 (<2.0) mg/dL Ur Leukocyte Esterase Large H (Negative) Urine RBC 35 H (0-5) /hpf Urine WBC >182 H (0-5) /hpf Urine WBC Clumps Many H (None) /hpf Urine Mucus Occasional H (None) /hpf 04/05/23 Range/Units 13:33 WBC (3.8-10.6) k/uL RBC (3.80-5.40) m/uL Hgb (11.4-16.0) gm/dL Hct (34.0-46.0) % MCV (80.0-100.0) fL MCH (25.0-35.0) pg MCHC (31.0-37.0) g/dL RDW (11.5-15.5) % Plt Count (150-450) k/uL MPV Neutrophils % % Lymphocytes % % Monocytes % % Eosinophils % % Basophils % % Neutrophils # (1.3-7.7) k/uL Lymphocytes # (1.0-4.8) k/uL Monocytes # (0-1.0) k/uL Eosinophils # (0-0.7) k/uL Basophils # (0-0.2) k/uL Sodium (137-145) mmol/L Potassium (3.5-5.1) mmol/L Chloride (98-107) mmol/L Carbon Dioxide (22-30) mmol/L Anion Gap mmol/L BUN (7-17) mg/dL Creatinine (0.52-1.04) mg/dL Est GFR (CKD-EPI)AfAm (>60 ml/min/1.73 sqM) Est GFR (CKD-EPI)NonAf (>60 ml/min/1.73 sqM) Glucose (74-99) mg/dL Plasma Lactic Acid Jag 0.9 (0.7-2.0) mmol/L Calcium (8.4-10.2) mg/dL Total Bilirubin (0.2-1.3) mg/dL AST (14-36) U/L ALT (4-34) U/L Alkaline Phosphatase (38-126) U/L Total Protein (6.3-8.2) g/dL Albumin (3.5-5.0) g/dL Amylase (30-110) U/L Lipase (23-300) U/L Urine Color Urine Appearance (Clear) Urine pH (5.0-8.0) Ur Specific Coats (1.001-1.035) Urine Protein (Negative) Urine Glucose (UA) (Negative) Urine Ketones (Negative) Urine Blood (Negative) Urine Nitrite (Negative) Urine Bilirubin (Negative) Urine Urobilinogen (<2.0) mg/dL Ur Leukocyte Esterase (Negative) Urine RBC (0-5) /hpf Urine WBC (0-5) /hpf Urine WBC Clumps (None) /hpf Urine Mucus (None) /hpf - Radiology Data Radiology results: report reviewed, image reviewed Disposition Clinical Impression: UTI (urinary tract infection), Flank pain Disposition: HOME SELF-CARE Instructions (If sedation given, give patient instructions): Urinary Tract Infection in Women (ED) Additional Instructions: Return to the emergency department with any new, worsening, or concerning symptoms. Take the antibiotic as prescribed for 7 days. Take the Cambridge sparingly when your pain is the most severe and otherwise take Tylenol. Be aware that the Cambridge may make you drowsy and you should avoid driving or operating machinery when taking this. You can take the Zofran up to every 8 hours as needed for nausea and vomiting. Make sure that you drink plenty of fluids and remain well-hydrated. Follow up with your primary care provider in 1-2 days. Prescriptions: cefUROXime axetiL [Cefuroxime] 500 mg PO BID 7 Days #14 tab HYDROcodone/APAP 7.5-325MG [Cambridge 7.5-325] 1 tab PO Q6HR PRN 3 Days #12 tab PRN Reason: Pain Ondansetron Odt [Zofran Odt] 4 mg PO Q8HR PRN #15 tab PRN Reason: Nausea And Vomiting Is patient prescribed a controlled substance at d/c from ED?: Yes When asked, does pt state using other controlled substances?: No If prescribed controlled substance>3 days was MAPS reviewed?: Prescribed <3 Days Referrals: Eder Canada MD [Primary Care Provider] - 1-2 days
[2023-04-05 13:46] LABS: Basophils % (A) 0 %; Eosinophils # (A) 0.2 k/uL (0-0.7); Eosinophils % (A) 1 %; HCT 37.3 % (34.0-46.0); HGB 12.3 gm/dL (11.4-16.0); Lymphocytes # (A) 1.5 k/uL (1.0-4.8); Lymphocytes % (A) 13 %; MCH 31.1 pg (25.0-35.0); MCHC 33.1 g/dL (31.0-37.0); MCV 93.9 fL (80.0-100.0); Mean Platelet Volume 8.3; Monocytes # (A) 0.7 k/uL (0-1.0); Monocytes % (A) 6 %; Neutrophils # (A) 9.5 k/uL (1.3-7.7); Neutrophils % (A) 79 %; Platelet Count 338 k/uL (150-450); RBC 3.97 m/uL (3.80-5.40); RDW 13.1 % (11.5-15.5); WBC 12.1 k/uL (3.8-10.6)
[2023-04-05 14:00] LABS: Appearance,Urine Turbid (Clear); Bilirubin,Urine Negative (Negative); Blood,Urine Moderate (Negative); Color,Urine Yellow; Glucose,Urine (UA) Negative (Negative); Ketones,Urine Negative (Negative); Leukocyte Esterase,Urine Large (Negative); Mucus,Urine Occasional /hpf; Nitrite,Urine Negative (Negative); PH, Urine 6.5 (5.0-8.0); Protein,Urine 2+ (Negative); RBC,Urine 35 /hpf (0-5); Urobilinogen,Urine <2.0 mg/dL (<2.0); WBC,Urine >182 /hpf (0-5)
[2023-04-05 14:01] LABS: ALT 17 U/L (4-34); African American GFR (CKD) 65 (>60 ml/min/1.73 sqM); Albumin 3.8 g/dL (3.5-5.0); Amylase 45 U/L (30-110); Anion Gap 9 mmol/L; Blood Urea Nitrogen 28 mg/dL (7-17); Calcium 9.1 mg/dL (8.4-10.2); Carbon Dioxide 22 mmol/L (22-30); Chloride 104 mmol/L (98-107); Glucose 124 mg/dL (74-99); Lipase 25 U/L (23-300); Non-African American GFR(CKD) 56 (>60 ml/min/1.73 sqM); Sodium 135 mmol/L (137-145); Total Bilirubin 0.9 mg/dL (0.2-1.3); Total Protein 6.6 g/dL (6.3-8.2)
[2023-04-05 14:09] LABS: AST 35 U/L (14-36); Alkaline Phosphatase 36 U/L (38-126); Potassium 4.5 mmol/L (3.5-5.1)
[2023-04-05 14:23] LABS: Specific Gravity,Urine 1.011 (1.001-1.035)
--- NOTE | 2023-04-05 14:28 | CT ---
EXAMINATION TYPE: CT abdomen pelvis wo con CT DLP: 598.9 mGycm, Automated exposure control for dose reduction was used. DATE OF EXAM: 04/05/2023 2:08 PM COMPARISON: CT abdomen pelvis most recent from 03/22/2022. CLINICAL INDICATION:Female, 72 years old with history of Left flank pain, dysuria; TECHNIQUE: Axial CT of the abdomen and pelvis. Sagittal and coronal reformats were created on a [employer] workstation. Contrast used: mL of , (none if empty) Oral contrast used: (none if empty) FINDINGS: LOWER CHEST: Unremarkable ABDOMEN LIVER: Unremarkable GALLBLADDER AND BILE DUCTS: Layering increased densities within the lumen consistent with gallstones are present. PANCREAS: Unremarkable. SPLEEN: Unremarkable. ADRENAL GLANDS: Unremarkable. KIDNEYS AND URETERS: Similar dilation of the left renal collecting system compared to prior. No obvio us obstructing calculus visualized. Nonobstructing bilateral renal calculi are present similar prior. Measure up to 6 mm on the right with a conglomerate area of calculi in the inferior aspect. On the l eft measuring up to 5 mm. PELVIS BLADDER: Unremarkable REPRODUCTIVE: Unremarkable. ABDOMEN & PELVIS STOMACH AND BOWEL: No evidence of bowel obstruction. Scattered colonic diverticula. The appendix is n ormal. Small hiatal hernia. PERITONEUM/RETROPERITONEUM: No evidence of pneumoperitoneum or free fluid. VASCULATURE: Mild atherosclerotic calcifications are present throughout the abdominal aorta and its b ranches. No evidence of aortic aneurysm. MUSCULOSKELETAL: No acute osseous abnormalities. Scoliosis changes of the spine similar prior. Mild d isc degeneration changes are present throughout the thoracolumbar spine. LYMPH NODES: No gross evidence for lymphadenopathy. SOFT TISSUE/ABDOMINAL WALL: Fat-containing umbilical hernia. IMPRESSION: 1. There are similar dilation of the left collecting system compared 03/22/2022 no obvious obstructin g calculus. This could represent sequela from prior obstructing calculus on 03/20/2022 versus recently passed stone. 2. Bilateral nonobstructing calculi similar prior. 3. Colonic diverticulosis. 4. Cholelithiasis. 5. Small hiatal hernia.
[2023-04-05 14:35] VITALS: RESP 18
[2023-04-05] MEDS ORDERED: cefTRIAXone IN SWFI 1,000 MG/10 ML SYRINGE IVP STA (14:44)
[2023-04-05 15:21] VITALS: BP 103/67; PULSE 80
== END 2023-04-05 15:39 | disposition home or self-care (01) ==
LOC: EC 12:34
DX: N39.0 Urinary tract infection, site not specified (principal); B96.89 Other specified bacterial agents as the cause of diseases classified elsewhere; I10 Essential (primary) hypertension; E78.5 Hyperlipidemia, unspecified; F41.9 Anxiety disorder, unspecified; K21.9 Gastro-esophageal reflux disease without esophagitis; Z79.82 Long term (current) use of aspirin; Z79.899 Other long term (current) drug therapy; Z91.041 Radiographic dye allergy status
CPT/HCPCS: 36415; 80053; 82150; 83605; 83690; 85025; 81001; 87086; 87077; 87186; 74176; 99284; 96374; 96375 ×3; 96361; J2405; J0696; J2270; J1885

== ENCOUNTER → 2023-05-04 | Outpatient (CLI) | payer MEDICARE ==
--- NOTE | 2023-05-04 13:56 | MM ---
Reason for Exam: Additional evaluation requested from abnormal screening. Last screening mammogram was performed less than 1 month ago. Patient History: Menarche at age 10. First Full-Term at age 22. Postmenopausal. Risk Values: Naomi 5 year model risk: 1.6%. NCI Lifetime model risk: 3.7%. Prior Study Comparison: 04/15/2021 Bilateral Screening Mammogram, [facility]. 04/21/2022 Bilateral MG 3D screening mammo w/cad, [facility]. 04/25/2023 Bilateral MG 3D screening mammo w/cad, [facility]. Tissue Density: Left: The breast tissue is heterogeneously dense. This may lower the sensitivity of mammography. Findings: Analyzed By CAD. Persistent 5 mm mass within the upper outer quadrant of the left breast at middle depth. This is isodense with irregular margins. No suspicious group of microcalcifications within the left breast. Overall Assessment: Incomplete: need additional imaging evaluation, BI-RAD 0 Management: Diagnostic Breast Ultrasound of the left breast. A clinical breast exam by your physician is recommended on an annual basis and results should be correlated with mammographic findings. This exam should not preclude additional follow-up of suspicious palpable abnormalities. Results were given to the patient verbally at the time of exam. Note on Naomi scores and lifetime risk: 1. A Naomi score greater than 3% is considered moderate risk. If this is the case, consider specialist referral to assess eligibility for a risk reducing agent. If overall lifetime risk for the development of breast cancer is 20% or higher, the patient may qualify for future screening with alternating mammogram and breast MRI. Electronically signed and approved by: Jose Pérez D.O.
--- NOTE | 2023-05-04 14:21 | USB ---
Reason for Exam: Additional evaluation requested from abnormal screening. Patient History: Menarche at age 10. First Full-Term at age 22. Postmenopausal. Risk Values: Naomi 5 year model risk: 1.6%. NCI Lifetime model risk: 3.7%. Technique: Method: Targeted. Prior Study Comparison: 04/15/2021 Bilateral Screening Mammogram, [facility]. 04/21/2022 Bilateral MG 3D screening mammo w/cad, [facility]. 04/25/2023 Bilateral MG 3D screening mammo w/cad, [facility]. Findings: The upper outer quadrant of the left breast, the axilla of the left breast and the retroareolar of the left breast were scanned. Targeted ultrasound left breast from 12-3 o'clock was performed with initial evaluation the nipple and axilla. There is a hypoechoic circumscribed mass within the left breast 1:00 5 cm from the nipple measuring 0.3 x 0.5 x 0.3 cm without internal color flow. No posterior acoustic features. This is parallel in orientation. Overall Assessment: Probably benign, BI-RAD 3 Management: Diagnostic Breast Ultrasound of the left breast in 6 months. A clinical breast exam by your physician is recommended on an annual basis and results should be correlated with mammographic findings. This exam should not preclude additional follow-up of suspicious palpable abnormalities. Results were given to the patient verbally at the time of exam. Electronically signed and approved by: Jose Pérez D.O.
== END | disposition home or self-care (01) ==
LOC: RADMAMWWP 13:34
PROVIDERS: ATTEND Internal Medicine Geriatric Medicine
DX: R92.8 Other abnormal and inconclusive findings on diagnostic imaging of breast (principal); Z78.0 Asymptomatic menopausal state
CPT/HCPCS: 77065; 76642; G0279; 77061

== ENCOUNTER → 2023-06-13 | Outpatient (CLI) | payer MEDICARE ==
[2023-06-13 13:33] VITALS: BP 116/70; PULSE 77; RESP 16; TEMP 97.8
== END ==
LOC: PROCWHC3 12:59
PROVIDERS: ATTEND Internal Medicine Geriatric Medicine
DX: M81.0 Age-related osteoporosis without current pathological fracture (principal)
CPT/HCPCS: 96372; J0897

== ENCOUNTER → 2023-12-05 | Outpatient (CLI) | payer MEDICARE ==
--- NOTE | 2023-12-05 09:02 | USB ---
Reason for Exam: Follow-up at short interval from prior study. Patient History: Menarche at age 10. First Full-Term at age 22. Postmenopausal. Risk Values: Naomi 5 year model risk: 1.6%. NCI Lifetime model risk: 3.7%. Technique: Method: Targeted. Prior Study Comparison: 04/21/2022 Bilateral MG 3D screening mammo w/cad, [facility]. 04/25/2023 Bilateral MG 3D screening mammo w/cad, [facility]. 05/04/2023 Left MG 3D work up w/cad , [facility]. Findings: The upper outer quadrant of the left breast, the axilla of the left breast and the retroareolar of the left breast were scanned. Targeted ultrasound 1:00 left breast including scanning of the subareolar region and axilla. At the 1:00 position, 5 cm from the nipple, there is redemonstrated a vague hypoechoic area measuring 5 x 3 x 4 mm. This is in comparison to 5 x 3 x 3 mm, previously. No other solid or cystic lesion. Overall Assessment: Incomplete: need additional imaging evaluation, BI-RAD 0 Management: Special View Mammogram of the left breast. Electronically signed and approved by: Cristiana Kay M.D. Radiologist
== END | disposition home or self-care (01) ==
LOC: RADUSWWP 08:27
PROVIDERS: ATTEND Internal Medicine Geriatric Medicine
DX: R92.8 Other abnormal and inconclusive findings on diagnostic imaging of breast (principal); Z78.0 Asymptomatic menopausal state

== ENCOUNTER → 2023-12-12 | Outpatient (CLI) | payer MEDICARE ==
--- NOTE | 2023-12-12 19:25 | XR ---
EXAMINATION TYPE: XR foot complete LT DATE OF EXAM: 12/12/2023 7:05 PM CLINICAL INDICATION:Female, 72 years old with history of M79.672,PAIN IN LEFT FOOT; [facility] COMPARISON: None TECHNIQUE: XR foot complete LT examined in the AP, oblique, and lateral projections. FINDINGS: Fracture of the fourth metatarsal proximal shaft with callus formation. No acute osseous pathology de finitively visualized. There is multi focal degeneration with osteophyte formation and joint space na rrowing worse at the first digit metatarsophalangeal joint. There is calcaneal plantar spurring. Late ral angulation of the first digit metatarsophalangeal joint noted. IMPRESSION: 1. Subacute fracture with callus formation of the fourth metatarsal. 2. Moderate degeneration of the first digit metatarsophalangeal joint. 3. Hallux valgus.
== END | disposition home or self-care (01) ==
LOC: RADXRMAIN 18:18
PROVIDERS: ATTEND Physician Assistant
DX: S92.342A Displaced fracture of fourth metatarsal bone, left foot, initial encounter for closed fracture (principal); M20.12 Hallux valgus (acquired), left foot

== ENCOUNTER → 2023-12-19 | Outpatient (CLI) | payer MEDICARE ==
--- NOTE | 2023-12-05 09:32 | MM ---
Reason for Exam: Additional evaluation requested from prior study. Last screening mammogram was performed 8 month(s) ago. Patient History: Menarche at age 10. First Full-Term at age 22. Postmenopausal. Risk Values: Naomi 5 year model risk: 1.6%. NCI Lifetime model risk: 3.7%. Prior Study Comparison: 04/21/2022 Bilateral MG 3D screening mammo w/cad, [facility]. 04/25/2023 Bilateral MG 3D screening mammo w/cad, [facility]. 05/04/2023 Left MG 3D work up w/cad LT, [facility]. Tissue Density: Left: There are scattered areas of fibroglandular density. Findings: Analyzed By CAD. Area of asymmetric density superiorly on the MLO view middle depth remains unchanged. Ongoing short interval follow-up is recommended. No suspicious microcalcification or other discrete abnormality is seen. Overall Assessment: Probably benign, BI-RAD 3 Management: Diagnostic Mammogram of both breasts in 6 months. Diagnostic Breast Ultrasound of the left breast in 6 months. Total one-year follow-up left breast and annual exam of the right breast. Results were given to the patient verbally at the time of exam. Patient should continue monthly self-breast exams. A clinical breast exam by your physician is recommended on an annual basis. This exam should not preclude additional follow-up of suspicious palpable abnormalities. Note on Naomi scores and lifetime risk: 1. A Naomi score greater than 3% is considered moderate risk. If this is the case, consider specialist referral to assess eligibility for a risk reducing agent. 2. If overall lifetime risk for the development of breast cancer is 20% or higher, the patient may qualify for future screening with alternating mammogram and breast MRI. Electronically signed and approved by: Cristiana Kay M.D. Radiologist
[2023-12-19] MEDS: DENOSUMAB 60 MG/ML 1 ML SYRINGE SQ NR (14:48)
[2023-12-19 15:19] VITALS: BP 96/62; PULSE 75; RESP 16; TEMP 97.8
== END ==
LOC: PROCWHC3 14:33
PROVIDERS: ATTEND Internal Medicine Geriatric Medicine
DX: M81.0 Age-related osteoporosis without current pathological fracture (principal)
CPT/HCPCS: 96372; J0897; 77061; 77065

== ENCOUNTER → 2024-06-15 | Outpatient (CLI) | payer MEDICARE ==
--- NOTE | 2024-06-15 08:14 | MM ---
Reason for Exam: Follow-up at short interval from prior study. Last mammogram was performed 1 year(s) and 2 month(s) ago. Patient History: Menarche at age 10. First Full-Term at age 22. Postmenopausal. Risk Values: Naomi 5 year model risk: 1.6%. NCI Lifetime model risk: 3.4%. Prior Study Comparison: 02/07/2013 Left Diagnostic Ultrasound, [facility]. 02/13/2014 Bilateral Diagnostic Mammogram, [facility]. 07/22/2014 Left Diagnostic Mammogram, [facility]. 01/14/2015 Bilateral Diagnostic Mammogram, [facility]. 01/16/2016 Bilateral Screening Mammogram, [facility]. 02/03/2017 Bilateral Screening Mammogram, [facility]. 02/09/2018 Bilateral Screening Mammogram, [facility]. 03/29/2019 Bilateral Screening Mammogram, [facility]. 04/04/2020 Bilateral Screening Mammogram, [facility]. 04/15/2021 Bilateral Screening Mammogram, [facility]. 04/21/2022 Bilateral MG 3D screening mammo w/cad, [facility]. 04/25/2023 Bilateral MG 3D screening mammo w/cad, [facility]. 05/04/2023 Left MG 3D work up w/cad LT, [facility]. 05/04/2023 Left US breast workup limited LT, [facility]. 12/05/2023 Left MG 3D diag mammo w/cad LT, [facility]. 12/05/2023 Left US breast limited LT, [facility]. Tissue Density: There are scattered areas of fibroglandular density. Findings: Analyzed By CAD. The pattern is symmetrical. There is some asymmetry within the upper outer left breast lower outer left breast. This may be a change. Under compression these areas appear to disperse normally. Additional evaluation with ultrasound is recommended. No suspicious groups of microcalcifications, spiculated or lobular masses, architectural distortion or other secondary signs of malignancy are mammographically apparent. Overall Assessment: Incomplete: need additional imaging evaluation, BI-RAD 0 Management: Diagnostic Breast Ultrasound of the left breast. A negative mammogram report should not preclude additional follow up of suspicious palpable abnormalities. Patient should continue monthly self breast exam. A clinical breast exam by your physician is recommended on an annual basis and results should be correlated with mammographic findings. Note on Naomi scores and lifetime risk: 1. A Naomi score greater than 3% is considered moderate risk. If this is the case, consider specialist referral to assess eligibility for a risk reducing agent. 2. If overall lifetime risk for the development of breast cancer is 20% or higher, the patient may qualify for future screening with alternating mammogram and breast MRI. [facility], , 06/15/2024 8:10 AM. Electronically signed and approved by: Alfa Wilkins D.O. Radiologis
--- NOTE | 2024-06-15 08:21 | USB ---
Reason for Exam: Clinical finding. Patient History: Menarche at age 10. First Full-Term at age 22. Postmenopausal. Risk Values: Naomi 5 year model risk: 1.6%. NCI Lifetime model risk: 3.4%. Technique: Method: Targeted. Prior Study Comparison: 04/25/2023 Bilateral MG 3D screening mammo w/cad, [facility]. 05/04/2023 Left MG 3D work up w/cad LT, [facility]. 12/05/2023 Left MG 3D diag mammo w/cad LT, [facility]. Findings: The lateral section of the breast of the left breast, the axilla of the left breast and the retroareolar of the left breast were scanned. At the 1:00 position 5 cm from the nipple there is a persistent hypoechoic area which may have some shadowing and plain films between lobules. This area measures 0.7 x 0.5 x 0.3 cm. Prior measurement 0.5 x 0.3 x 0.4 cm.. Overall Assessment: Probably benign, BI-RAD 3 Management: Diagnostic Breast Ultrasound of the left breast in 6 months. Diagnostic Breast MRI of both breasts. A clinical breast exam by your physician is recommended on an annual basis and results should be correlated with mammographic findings. This exam should not preclude additional follow-up of suspicious palpable abnormalities. Results were given to the patient verbally at the time of exam. [facility], , 06/15/2024 8:15 AM. Electronically signed and approved by: Alfa Wilkins D.O. Radiologis
== END | disposition home or self-care (01) ==
LOC: RADMAMWWP 07:03
PROVIDERS: ATTEND Internal Medicine Geriatric Medicine
DX: R92.8 Other abnormal and inconclusive findings on diagnostic imaging of breast (principal); R92.323 Mammographic fibroglandular density, bilateral breasts; Z78.0 Asymptomatic menopausal state
CPT/HCPCS: 77066; 76642; G0279; 77062

== ENCOUNTER 2024-06-24 10:25 | Inpatient (IN) | payer MEDICARE ==
[2024-06-24] MEDS: SODIUM CHLORIDE 0.9% 1,000 ML IV STA (10:48)
[2024-06-24] MEDS: ONDANSETRON 4 MG/2 ML VIAL IVP STA (10:49)
[2024-06-24] MEDS: KETOROLAC 15 MG/ML 1 ML VIAL IVP STA (10:50)
[2024-06-24 11:03] LABS: Basophils % (A) 0 %; Eosinophils # (A) 0.2 k/uL (0-0.7); Eosinophils % (A) 2 %; HCT 37.3 % (34.0-46.0); HGB 11.8 gm/dL (11.4-16.0); Lymphocytes # (A) 0.8 k/uL (1.0-4.8); Lymphocytes % (A) 10 %; MCH 28.6 pg (25.0-35.0); MCHC 31.6 g/dL (31.0-37.0); MCV 90.6 fL (80.0-100.0); Mean Platelet Volume 7.8; Monocytes # (A) 0.7 k/uL (0-1.0); Monocytes % (A) 8 %; Neutrophils # (A) 6.8 k/uL (1.3-7.7); Neutrophils % (A) 79 %; Platelet Count 369 k/uL (150-450); RBC 4.12 m/uL (3.80-5.40); RDW 14.3 % (11.5-15.5); WBC 8.7 k/uL (3.8-10.6)
[2024-06-24 11:27] LABS: ALT 11 U/L (4-34); AST 16 U/L (14-36); African American GFR (CKD) 19 (>60 ml/min/1.73 sqM); Albumin 3.6 g/dL (3.5-5.0); Alkaline Phosphatase 47 U/L (38-126); Anion Gap 10 mmol/L; Blood Urea Nitrogen 39 mg/dL (7-17); Carbon Dioxide 23 mmol/L (22-30); Chloride 102 mmol/L (98-107); Glucose 157 mg/dL (74-99); Lipase 33 U/L (23-300); Non-African American GFR(CKD) 17 (>60 ml/min/1.73 sqM); Potassium 4.2 mmol/L (3.5-5.1); Sodium 135 mmol/L (137-145); Total Bilirubin 0.5 mg/dL (0.2-1.3); Total Protein 6.4 g/dL (6.3-8.2)
--- NOTE | 2024-06-24 11:47 | CT ---
EXAMINATION TYPE: CT abdomen pelvis wo con DATE OF EXAM: 06/24/2024 11:32 AM COMPARISON: None. CLINICAL INDICATION: Female, 73 years old with history of flank pain, Bilateral flank pain TECHNIQUE: Axial images with sagittal coronal reformats. Examination of the solid and hollow viscera is limited given the lack of contrast. CT DLP: 481.3 mGycm, Automated exposure control for dose reduction was used. FINDINGS: LUNG BASES: No evidence for nodule. No evidence for infiltrate. LIVER/GB: Small gallstones noted. No space-occupying hepatic lesion. PANCREAS: No pancreatic mass identified. No inflammatory process seen. SPLEEN: No evidence for splenomegaly. No intrasplenic lesions seen. ADRENALS: No adrenal nodules identified. No evidence for thickening. KIDNEYS: Interval development of moderate right-sided hydronephrosis secondary to a distal ureteral c alculus measuring 6.6 mm which is approximately 5 cm from the UVJ. There is moderate stable left-side d hydronephrosis which could be related to congenital left UPJ obstruction or stricture from prior pa ssed calculi. There are multiple bilateral calculi seen within both kidneys measuring up to 6 mm lowe r pole right kidney and 7 mm lower pole left kidney. BOWEL: Appendix has a normal appearance. No evidence of bowel obstruction. No inflammatory process. Lymph nodes: No evidence for adenopathy greater than 1 cm. Abdominal aorta: Atheromatous changes seen. No evidence for aneurysm. Genital organs: No significant abnormality. Other: No significant abnormality. IMPRESSION: 1.Interval development of moderate right-sided hydronephrosis secondary to a distal ureteral calculus measuring 6.6 mm which is approximately 5 cm from the UVJ. 2. Stable moderate left-sided hydronephrosis. See above. [facility], , 06/24/2024 11:45 AM
[2024-06-24] MEDS: SODIUM CHLORIDE 0.9% 1,000 ML IV SCH ×2 (12:29→15:15)
--- NOTE | 2024-06-24 13:03 | ED ---
General Adult HPI - General Chief complaint: Urogenital Stated complaint: Abd/back pain,Vomiting Time Seen by Provider: 06/24/24 10:32 Source: patient, RN notes reviewed Mode of arrival: ambulatory Limitations: no limitations - History of Present Illness Initial comments: 73-year-old female presents emerged part complaint of flank pain, nausea vomiting. Patient states has been sick for last 4 days states she feels like she has pain in both sides of her complaint but greater on the right. Patient denies any reports of fever no urinary symptoms currently. Patient denies any chest pain she does have a history of kidney stones. - Related Data Home Medications Medication Instructions Recorded Confirmed Aspirin 81 mg PO DAILY 06/10/14 06/24/24 Biotin 5 mg PO DAILY 02/03/21 06/24/24 Multivit-Min/Iron/Folic/Lutein 1 tab PO DAILY 02/03/21 06/24/24 [Centrum Silver Women Tablet] Spironolactone [Aldactone] 12.5 mg PO DAILY 02/03/21 06/24/24 Pravastatin Sodium [Pravachol] 40 mg PO HS 02/05/22 06/24/24 amLODIPine BESYLATE/BENAZEPRIL 1 cap PO DAILY 02/05/22 06/24/24 [amLODIPine BESYLATE/BENAZEPRIL 10-20 mg] Calcium Carbonate/Vitamin D3 2 tab PO DAILY 03/22/22 06/24/24 [Calcium 600 mg-Vit D3 5 mcg (200 unit)] Omeprazole 20 mg PO BID 03/22/22 06/24/24 hydroCHLOROthiazide [Hydrodiuril] 25 mg PO DAILY 04/13/22 06/24/24 Potassium Citrate 99 mg PO BID 12/21/23 06/24/24 Escitalopram [Lexapro] 20 mg PO DAILY 06/24/24 06/24/24 Ibandronate Sodium [Boniva] 150 mg PO DIRECTED 06/24/24 06/24/24 Naproxen [Naprosyn] 500 mg PO BID 06/24/24 06/24/24 Allergies Allergy/AdvReac Type Severity Reaction Status Date / Time Iodinated Contrast Media Allergy Rash/Hives Verified 06/24/24 10:27 Review of Systems ROS Statement: Those systems with pertinent positive or pertinent negative responses have been documented in the HPI. ROS Other: All systems not noted in ROS Statement are negative. Past Medical History Past Medical History: GERD/Reflux, Hyperlipidemia, Hypertension, Osteoarthritis (OA), Renal Disease Additional Past Medical History / Comment(s): Medullary sponge kidney and kidney stones, UTIs, osteoporosis, hiatal hernia, gastritis, chronic back pain, migraines History of Any Multi-Drug Resistant Organisms: None Reported Past Surgical History: Section, Orthopedic Surgery Additional Past Surgical History / Comment(s): Multiple surgeries for kidney stones/cysto's/litho's/double J stents/since removed, R wrist cyst that caused bone fracture, pain clinic procedures, EGD, colonoscopy, bilateral catarct removals. Past Anesthesia/Blood Transfusion Reactions: Motion Sickness Additional Past Anesthesia/Blood Transfusion Reaction / Comment(s): Pt has claustrophobia. 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 Past Psychological History: Anxiety Smoking Status: Never smoker Past Alcohol Use History: None Reported - Past Family History Father Family Medical History: Myocardial Infarction (CO) Additional Family Medical History / Comment(s): Father is . Mother Family Medical History: CVA/TIA, Hyperlipidemia, Hypertension Additional Family Medical History / Comment(s): Mother is 96 yrs old. General Exam Limitations: no limitations General appearance: alert, in no apparent distress Head exam: Present: atraumatic, normocephalic, normal inspection Eye exam: Present: normal appearance, PERRL, EOMI. Absent: scleral icterus, conjunctival injection, periorbital swelling ENT exam: Present: normal exam, mucous membranes moist Neck exam: Present: normal inspection. Absent: tenderness, meningismus, lymphadenopathy Respiratory exam: Present: normal lung sounds bilaterally. Absent: respiratory distress, wheezes, rales, rhonchi, stridor Cardiovascular Exam: Present: regular rate, normal rhythm, normal heart sounds. Absent: systolic murmur, diastolic murmur, rubs, gallop, clicks GI/Abdominal exam: Present: soft, normal bowel sounds. Absent: distended, tenderness, guarding, rebound, rigid Back exam: Present: CVA tenderness (R). Absent: CVA tenderness (L) Course Vital Signs 06/24/24 06/24/24 10:28 12:30 Temperature 98.2 F 96.9 F L Pulse Rate 82 67 Respiratory 18 17 Rate Blood Pressure 94/64 93/62 O2 Sat by Pulse 98 99 Oximetry Medical Decision Making - Medical Decision Making Was pt. sent in by a medical professional or institution (DAVID Bryant, HOUSEHOLD PERSONAL ASSISTANT, urgent care, hospital, or jail...) When possible be specific @ -No Did you speak to anyone other than the patient for history (EMS, parent, family, police, friend...)? What history was obtained from this source @ -No Did you review nursing and triage notes (agree or disagree)? Why? @ -I reviewed and agree with nursing and triage notes Were old charts reviewed (outside hosp., previous admission, EMS record, old EKG, old radiological studies, urgent care reports/EKG's, jail records)? Report findings @ -No old charts were reviewed Differential Diagnosis (chest pain, altered mental status, abdominal pain women, abdominal pain men, vaginal bleeding, weakness, fever, dyspnea, syncope, headache, dizziness, GI bleed, back pain, seizure, CVA, palpatations, mental health, musculoskeletal)? @ -Differential Abdominal Pain Women: Appendicitis, Cholecystitis, diverticulosis, ischemic bowel, pancreatitis, hepatitis, UTI, gastroenteritis, AAA, incarcerated hernia, bowel obstruction, constipation, inflammatory bowel, hepatitis, peptic ulcer disease, splenic infarction, perforated viscus, vulvitis, ovarian torsion, PID, kidney stone, placenta abruption, this is not meant to be an all-inclusive list EKG interpreted by me (3pts min.). @ -None X-rays interpreted by me (1pt min.). @ -None done CT interpreted by me (1pt min.). @ -CT abdomen pelvis showing right ureteral calculus 6.6 mm 5 cm from UVJ U/S interpreted by me (1pt. min.). @ -None done What testing was considered but not performed or refused? (CT, X-rays, U/S, labs)? Why? @ -None What meds were considered but not given or refused? Why? @ -None Did you discuss the management of the patient with other professionals (professionals i.e. DAVID Bryant, HOUSEHOLD PERSONAL ASSISTANT, lab, RT, psych nurse, social work associate, librarian assistant, teacher, chief growth officer, medical case worker)? Give summary @ -[Discussed case with Dr. Romo on-call urology regarding CT findings, labs and urinalysis patient will be n.p.o. for tomorrow stenting discussed the case with Dr. Gipson for admission Was smoking cessation discussed for >3mins.? @ -No Was critical care preformed (if so, how long)? @ -No Were there social determinants of health that impacted care today? How? (Homelessness, low income, unemployed, alcoholism, drug addiction, transportation, low edu. Level, literacy, decrease access to med. care, [place] [facility], rehab)? @ -No Was there de-escalation of care discussed even if they declined (Discuss DNR or withdrawal of care, Hospice)? DNR status @ -No What co-morbidities impacted this encounter? (DM, HTN, Smoking, COPD, CAD, Cancer, CVA, ARF, Chemo, Hep., AIDS, mental health diagnosis, sleep apnea, morbid obesity)? @ -None Was patient admitted / discharged? Hospital course, mention meds given and route, prescriptions, significant lab abnormalities, going to OR and other pertinent info. @ -Admitted patient's found to have a right ureteral calculus associated UTI and acute kidney injury. Patient given IV fluid bolus, maintenance fluids, IV antibiotics blood cultures drawn case discussed with medicine and urology. Undiagnosed new problem with uncertain prognosis? @ -No Drug Therapy requiring intensive monitoring for toxicity (Heparin, Nitro, Insulin, Cardizem)? @ -No Were any procedures done? @ -No Diagnosis/symptom? @ -Ureteral calculus, UTI, acute kidney injury Acute, or Chronic, or Acute on Chronic? @ -Acute Uncomplicated (without systemic symptoms) or Complicated (systemic symptoms)? @ -Complicated Side effects of treatment? @ -No Exacerbation, Progression, or Severe Exacerbation? @ -No Poses a threat to life or bodily function? How? (Chest pain, USA, CO, pneumonia, PE, COPD, DKA, ARF, appy, cholecystitis, CVA, Diverticulitis, Homicidal, Suicidal, threat to staff... and all critical care pts) @ -Yes possible sepsis causing endorgan failure - Lab Data Result diagrams: 06/24/24 10:39 06/24/24 10:39 Lab Results 06/24/24 06/24/24 06/24/24 Range/Units 10:39 10:39 10:39 WBC 8.7 (3.8-10.6) k/uL RBC 4.12 (3.80-5.40) m/uL Hgb 11.8 (11.4-16.0) gm/dL Hct 37.3 (34.0-46.0) % MCV 90.6 (80.0-100.0) fL MCH 28.6 (25.0-35.0) pg MCHC 31.6 (31.0-37.0) g/dL RDW 14.3 (11.5-15.5) % Plt Count 369 (150-450) k/uL MPV 7.8 Neutrophils % 79 % Lymphocytes % 10 % Monocytes % 8 % Eosinophils % 2 % Basophils % 0 % Neutrophils # 6.8 (1.3-7.7) k/uL Lymphocytes # 0.8 L (1.0-4.8) k/uL Monocytes # 0.7 (0-1.0) k/uL Eosinophils # 0.2 (0-0.7) k/uL Basophils # 0.0 (0-0.2) k/uL Sodium 135 L (137-145) mmol/L Potassium 4.2 (3.5-5.1) mmol/L Chloride 102 (98-107) mmol/L Carbon Dioxide 23 (22-30) mmol/L Anion Gap 10 mmol/L BUN 39 H (7-17) mg/dL Creatinine 2.67 H (0.52-1.04) mg/dL Est GFR (CKD-EPI)AfAm 19 (>60 ml/min/1.73 sqM) Est GFR (CKD-EPI)NonAf 17 (>60 ml/min/1.73 sqM) Glucose 157 H (74-99) mg/dL Plasma Lactic Acid Jag (0.7-2.0) mmol/L Calcium 9.0 (8.4-10.2) mg/dL Total Bilirubin 0.5 (0.2-1.3) mg/dL AST 16 (14-36) U/L ALT 11 (4-34) U/L Alkaline Phosphatase 47 (38-126) U/L Total Protein 6.4 (6.3-8.2) g/dL Albumin 3.6 (3.5-5.0) g/dL Lipase 33 (23-300) U/L Urine Color Light Yellow Urine Appearance Turbid H (Clear) Urine pH 6.0 (5.0-8.0) Ur Specific [place] 1.012 (1.001-1.035) Urine Protein 1+ H (Negative) Urine Glucose (UA) Negative (Negative) Urine Ketones Negative (Negative) Urine Blood Large H (Negative) Urine Nitrite Negative (Negative) Urine Bilirubin Negative (Negative) Urine Urobilinogen <2.0 (<2.0) mg/dL Ur Leukocyte Esterase Large H (Negative) Urine RBC 60 H (0-5) /hpf Urine WBC >182 H (0-5) /hpf Urine Bacteria Few H (None) /hpf 06/24/24 Range/Units 10:39 WBC (3.8-10.6) k/uL RBC (3.80-5.40) m/uL Hgb (11.4-16.0) gm/dL Hct (34.0-46.0) % MCV (80.0-100.0) fL MCH (25.0-35.0) pg MCHC (31.0-37.0) g/dL RDW (11.5-15.5) % Plt Count (150-450) k/uL MPV Neutrophils % % Lymphocytes % % Monocytes % % Eosinophils % % Basophils % % Neutrophils # (1.3-7.7) k/uL Lymphocytes # (1.0-4.8) k/uL Monocytes # (0-1.0) k/uL Eosinophils # (0-0.7) k/uL Basophils # (0-0.2) k/uL Sodium (137-145) mmol/L Potassium (3.5-5.1) mmol/L Chloride (98-107) mmol/L Carbon Dioxide (22-30) mmol/L Anion Gap mmol/L BUN (7-17) mg/dL Creatinine (0.52-1.04) mg/dL Est GFR (CKD-EPI)AfAm (>60 ml/min/1.73 sqM) Est GFR (CKD-EPI)NonAf (>60 ml/min/1.73 sqM) Glucose (74-99) mg/dL Plasma Lactic Acid Jag 1.1 (0.7-2.0) mmol/L Calcium (8.4-10.2) mg/dL Total Bilirubin (0.2-1.3) mg/dL AST (14-36) U/L ALT (4-34) U/L Alkaline Phosphatase (38-126) U/L Total Protein (6.3-8.2) g/dL Albumin (3.5-5.0) g/dL Lipase (23-300) U/L Urine Color Urine Appearance (Clear) Urine pH (5.0-8.0) Ur Specific [place] (1.001-1.035) Urine Protein (Negative) Urine Glucose (UA) (Negative) Urine Ketones (Negative) Urine Blood (Negative) Urine Nitrite (Negative) Urine Bilirubin (Negative) Urine Urobilinogen (<2.0) mg/dL Ur Leukocyte Esterase (Negative) Urine RBC (0-5) /hpf Urine WBC (0-5) /hpf Urine Bacteria (None) /hpf Disposition Clinical Impression: UTI (urinary tract infection), Urethral calculus, RAMAKRISHNA (acute kidney injury) Disposition: ADMITTED IP TO THIS HOSP Condition: Fair Time of Disposition: 15:00
[2024-06-24 13:28] LABS: Appearance,Urine Turbid (Clear); Bacteria,Urine Few /hpf; Bilirubin,Urine Negative (Negative); Blood,Urine Large (Negative); Color,Urine Light Yellow; Glucose,Urine (UA) Negative (Negative); Ketones,Urine Negative (Negative); Leukocyte Esterase,Urine Large (Negative); Nitrite,Urine Negative (Negative); Protein,Urine 1+ (Negative); RBC,Urine 60 /hpf (0-5); Urobilinogen,Urine <2.0 mg/dL (<2.0); WBC,Urine >182 /hpf (0-5)
[2024-06-24 14:32] LABS: Specific Gravity,Urine 1.012 (1.001-1.035)
[2024-06-24] MEDS ORDERED: NALOXONE 0.4 MG/ML 1 ML VIAL IV PRN (15:00)
--- NOTE | 2024-06-24 15:57 | P.HPIM ---
History of Present Illness H&P Date: 06/24/24 Chief Complaint: Back/abdominal pain 73-year-old female, history of hypertension, hyperlipidemia, CKD, osteoarthritis, presents emerged part complaint of flank pain, nausea vomiting. Patient states has been sick for last 4 days states she feels like she has pain in both sides of her complaint but greater on the right. Patient denies any reports of fever no urinary symptoms currently. Patient denies any chest pain she does have a history of kidney stones. Lab review shows WBC 8.7, hemoglobin of 11.8 and platelet count of 369, sodium 135, potassium 4.2, BUNs/creatinine of 39/2.67 and blood glucose of 157, UA is positive for few bacteria large amount of WBCs and leukocyte esterase and blood -CT abdomen pelvis showing right ureteral calculus 6.6 mm 5 cm from UVJ Discussed case with Dr. Romo on-call urology regarding CT findings, labs and urinalysis patient will be n.p.o. for tomorrow stenting Review of Systems REVIEW OF SYSTEMS: CONSTITUTIONAL: No fever, no malaise, no fatigue. HEENT: No recent visual problems or hearing problems. Denied any sore throat. CARDIOVASCULAR: No chest pain, orthopnea, PND, no palpitations, no syncope. PULMONARY: No shortness of breath, no cough, no hemoptysis. GASTROINTESTINAL: No diarrhea, no nausea, no vomiting, no abdominal pain. NEUROLOGICAL: No headaches, no weakness, no numbness. HEMATOLOGICAL: Denies any bleeding or petechiae. GENITOURINARY: Denies any burning micturition, frequency, or urgency. MUSCULOSKELETAL/RHEUMATOLOGICAL: Denies any joint pain, swelling, or any muscle pain. ENDOCRINE: Denies any polyuria or polydipsia. The rest of the 14-point review of systems is negative. Past Medical History Past Medical History: GERD/Reflux, Hyperlipidemia, Hypertension, Osteoarthritis (OA), Renal Disease Additional Past Medical History / Comment(s): Medullary sponge kidney and kidney stones, UTIs, osteoporosis, hiatal hernia, gastritis, chronic back pain, migraines History of Any Multi-Drug Resistant Organisms: None Reported Past Surgical History: Section, Orthopedic Surgery Additional Past Surgical History / Comment(s): Multiple surgeries for kidney stones/cysto's/litho's/double J stents/since removed, R wrist cyst that caused bone fracture, pain clinic procedures, EGD, colonoscopy, bilateral catarct removals. Past Anesthesia/Blood Transfusion Reactions: Motion Sickness Additional Past Anesthesia/Blood Transfusion Reaction / Comment(s): Pt has claustrophobia. 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 Past Psychological History: Anxiety Smoking Status: Never smoker Past Alcohol Use History: None Reported - Past Family History Father Family Medical History: Myocardial Infarction (MD) Additional Family Medical History / Comment(s): Father is . Mother Family Medical History: CVA/TIA, Hyperlipidemia, Hypertension Additional Family Medical History / Comment(s): Mother is 96 yrs old. Medications and Allergies Home Medications Medication Instructions Recorded Confirmed Type Aspirin 81 mg PO DAILY 06/10/14 06/24/24 History Biotin 5 mg PO DAILY 02/03/21 06/24/24 History Multivit-Min/Iron/Folic/Lutein 1 tab PO DAILY 02/03/21 06/24/24 History [Centrum Silver Women Tablet] Spironolactone [Aldactone] 12.5 mg PO DAILY 02/03/21 06/24/24 History Pravastatin Sodium [Pravachol] 40 mg PO HS 02/05/22 06/24/24 History amLODIPine BESYLATE/BENAZEPRIL 1 cap PO DAILY 02/05/22 06/24/24 History [amLODIPine BESYLATE/BENAZEPRIL 10-20 mg] Calcium Carbonate/Vitamin D3 2 tab PO DAILY 03/22/22 06/24/24 History [Calcium 600 mg-Vit D3 5 mcg (200 unit)] Omeprazole 20 mg PO BID 03/22/22 06/24/24 History hydroCHLOROthiazide [Hydrodiuril] 25 mg PO DAILY 04/13/22 06/24/24 History Potassium Citrate 99 mg PO BID 12/21/23 06/24/24 History Escitalopram [Lexapro] 20 mg PO DAILY 06/24/24 06/24/24 History Ibandronate Sodium [Boniva] 150 mg PO DIRECTED 06/24/24 06/24/24 History Naproxen [Naprosyn] 500 mg PO BID 06/24/24 06/24/24 History Allergies Allergy/AdvReac Type Severity Reaction Status Date / Time Iodinated Contrast Media Allergy Rash/Hives Verified 06/24/24 10:27 Physical Exam Vitals: Vital Signs Temp Pulse Resp BP Pulse Ox 11/24/24 12:30 96.9 F L 67 17 93/62 99 06/24/24 10:28 98.2 F 82 18 94/64 98 Intake and Output 06/24/24 06/24/24 06/24/24 06:59 14:59 22:59 Other: Weight 66.678 kg General appearance: alert, in no apparent distress Head exam: Present: atraumatic, normocephalic, normal inspection Eye exam: Present: normal appearance, PERRL, EOMI. Absent: scleral icterus, conjunctival injection, periorbital swelling ENT exam: Present: normal exam, mucous membranes moist Neck exam: Present: normal inspection. Absent: tenderness, meningismus, lymphadenopathy Respiratory exam: Present: normal lung sounds bilaterally. Absent: respiratory distress, wheezes, rales, rhonchi, stridor Cardiovascular Exam: Present: regular rate, normal rhythm, normal heart sounds. Absent: systolic murmur, diastolic murmur, rubs, gallop, clicks GI/Abdominal exam: Present: soft, normal bowel sounds. Absent: distended, tenderness, guarding, rebound, rigid Back exam: Present: CVA tenderness (R). Absent: CVA tenderness (L) Results CBC & Chem 7: 06/24/24 10:39 06/24/24 10:39 Labs: Abnormal Lab Results - Last 24 Hours (Table) 06/24/24 06/24/24 06/24/24 Range/Units 10:39 10:39 10:39 Lymphocytes # 0.8 L (1.0-4.8) k/uL Sodium 135 L (137-145) mmol/L BUN 39 H (7-17) mg/dL Creatinine 2.67 H (0.52-1.04) mg/dL Glucose 157 H (74-99) mg/dL Urine Appearance Turbid H (Clear) Urine Protein 1+ H (Negative) Urine Blood Large H (Negative) Ur Leukocyte Esterase Large H (Negative) Urine RBC 60 H (0-5) /hpf Urine WBC >182 H (0-5) /hpf Urine Bacteria Few H (None) /hpf Assessment and Plan Assessment: 1. Right ureteral calculus CT of the abdomen pelvis reveals right ureteral calculus 6.6 mm, 5 cm from the UVJ -Patient has been discussed with urology and plan is to keep patient n.p.o. tonight for stent placement tomorrow -We will continue with pain control with IV morphine -Normal saline at rate of 100 cc an hour 2. UTI; UA reveals large amount of leukocyte esterase, WBCs and nitrites -Patient has been placed on IV antibiotics per urology recommendations; further recommendations once cultures available 3. Acute renal injury; BUN/creatinine elevated at 39/2.67; patient will be placed on IV fluids with plans to monitor strict BERENICE's, daily weights, renal function electrolytes; avoid nephrotoxins and hypotension 4. Hypertension; Aldactone 25 mg daily, hydrochlorothiazide 25 mg daily and Norvasc 5 mg daily -Will resume home medications and monitor blood pressure closely 5. Hyperlipidemia; pravastatin DVT prophylaxis; SCDs CODE STATUS; full code
[2024-06-24] MEDS: MORPHINE SULFATE 4 MG/ML SYRINGE IV PRN (16:37)
[2024-06-24] MEDS: PRAVASTATIN SODIUM 40 MG TAB PO SCH (20:14)
[2024-06-24] MEDS: PANTOPRAZOLE 40 MG TABLET PO SCH (20:14)
[2024-06-24] MEDS: HYDROcodone/APAP 5-325MG 1 EACH TAB PO PRN (22:10)
[2024-06-25] MEDS: amLODIPine 10 MG TAB PO SCH (08:13)
[2024-06-25] MEDS: lisinopriL 20 MG TAB PO SCH (08:13)
[2024-06-25] MEDS: ESCITALOPRAM 20 MG TAB PO SCH (08:14)
[2024-06-25] MEDS: ONDANSETRON 4 MG/2 ML VIAL IVP PRN (08:36)
[2024-06-25 09:08] LABS: Basophils # (A) 0.02 X 10*3/uL (0.00-0.10); Basophils % (A) 0.3 %; Eosinophils # (A) 0.23 X 10*3/uL (0.04-0.35); Eosinophils % (A) 3.1 %; HCT 32.5 % (37.2-46.3); HGB 10.1 g/dL (12.0-15.0); Lymphocytes # (A) 1.11 X 10*3/uL (0.90-5.00); Lymphocytes % (A) 14.7 %; MCH 28.9 pg (27.0-32.0); MCHC 31.1 g/dL (32.0-37.0); MCV 92.9 FL (80.0-97.0); Mean Platelet Volume 10.6 FL (9.5-12.2); Monocytes % (A) 14.6 %; NRBC Per 100 WBC 0 X 10*3/uL (0.00-0.01); Neutrophils # (A) 5.05 X 10*3/uL (1.80-7.70); Neutrophils % (A) 66.9 %; Platelet Count 308 X 10*3/uL (140-440); RDW 14.8 % (11.5-14.5); WBC 7.54 X 10*3/uL (4.50-10.00)
[2024-06-25 09:14] LABS: BUN/Creat Ratio 13.76 Ratio (12.00-20.00); Blood Urea Nitrogen 28.9 mg/dL (9.0-27.0); Calcium 8.2 mg/dL (8.7-10.3); Chloride 104 mmol/L (96-109); Glucose 111 mg/dL (70-110); Sodium 136 mmol/L (135-145)
--- NOTE | 2024-06-25 09:17 | P.GSCN ---
History of Present Illness Consult date: 06/25/24 History of present illness: The 3-year-old female known to me for kidney stones. She has for 48 hours right sided flank and lower quadrant pain. She ended up in the emergency room where they identified a 6 mm distal ureteral stone on the right as well as bilateral renal stones. She had infected looking urine has a low-grade temperature of 99.9. She is admitted for IV fluids IV antibiotics and urologic consultation. Her white count is normal. She feels somewhat washed out and does have some pain. She may have mild bilateral UPJ obstruction. Renal stones are not causing any particular issues. Review of Systems All systems: negative Past Medical History Past Medical History: GERD/Reflux, Hyperlipidemia, Hypertension, Osteoarthritis (OA), Renal Disease Additional Past Medical History / Comment(s): Medullary sponge kidney and kidney stones, UTIs, osteoporosis,gastritis, chronic back pain, migraines History of Any Multi-Drug Resistant Organisms: None Reported Past Surgical History: Section, Orthopedic Surgery Additional Past Surgical History / Comment(s): Multiple surgeries for kidney stones/cysto's/litho's/double J stents/since removed, R wrist cyst that caused bone fracture, pain clinic procedures, EGD, colonoscopy, bilateral catarct removals. 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 Past Psychological History: Anxiety Additional Psychological History / Comment(s): Pt resides with her spouse. She is independent. Smoking Status: Never smoker Past Alcohol Use History: None Reported Past Drug Use History: None Reported - Past Family History Father Family Medical History: Myocardial Infarction ([place]) Additional Family Medical History / Comment(s): Father is . Mother Family Medical History: CVA/TIA, Hyperlipidemia, Hypertension Additional Family Medical History / Comment(s): Mother is 96 yrs old. Medications and Allergies Home Medications Medication Instructions Recorded Confirmed Type Aspirin 81 mg PO DAILY 06/10/14 06/24/24 History Biotin 5 mg PO DAILY 02/03/21 06/24/24 History Multivit-Min/Iron/Folic/Lutein 1 tab PO DAILY 02/03/21 06/24/24 History [Centrum Silver Women Tablet] Spironolactone [Aldactone] 12.5 mg PO DAILY 02/03/21 06/24/24 History Pravastatin Sodium [Pravachol] 40 mg PO HS 02/05/22 06/24/24 History amLODIPine BESYLATE/BENAZEPRIL 1 cap PO DAILY 02/05/22 06/24/24 History [amLODIPine BESYLATE/BENAZEPRIL 10-20 mg] Calcium Carbonate/Vitamin D3 2 tab PO DAILY 03/22/22 06/24/24 History [Calcium 600 mg-Vit D3 5 mcg (200 unit)] Omeprazole 20 mg PO BID 03/22/22 06/24/24 History hydroCHLOROthiazide [Hydrodiuril] 25 mg PO DAILY 04/13/22 06/24/24 History Potassium Citrate 99 mg PO BID 12/21/23 06/24/24 History Escitalopram [Lexapro] 20 mg PO DAILY 06/24/24 06/24/24 History Ibandronate Sodium [Boniva] 150 mg PO DIRECTED 06/24/24 06/24/24 History Naproxen [Naprosyn] 500 mg PO BID 06/24/24 06/24/24 History Allergies Allergy/AdvReac Type Severity Reaction Status Date / Time Iodinated Contrast Media Allergy Rash/Hives Verified 06/24/24 10:27 Surgical - Exam Vital Signs Temp Pulse Resp BP Pulse Ox 98.2 F 82 18 94/64 98 06/24/24 10:28 06/24/24 10:28 06/24/24 10:28 06/24/24 10:28 06/24/24 10:28 - General well developed, well nourished, no distress - Eyes normal ocular movement, no icteric - ENT no hearing loss, no congestion - Neck no masses, trachea midline - Respiratory normal respiratory effort, clear to auscultation - Abdomen Abdomen: soft, non tender, no guarding, no rigid, no rebound - Integumentary no rash, no abnormal pigmentation - Neurologic no disoriented, no combative - Psychiatric oriented to time, oriented to person, oriented to place, speech is normal, memory intact Results - Labs 06/25/24 04:29 06/25/24 04:29 Abnormal Lab Results - Last 24 Hours (Table) 06/24/24 06/24/24 06/24/24 Range/Units 10:39 10:39 10:39 RBC (4.10-5.20) X 10*6/uL Hgb (12.0-15.0) g/dL Hct (37.2-46.3) % MCHC (32.0-37.0) g/dL RDW (11.5-14.5) % Lymphocytes # 0.8 L (1.0-4.8) k/uL Monocytes # (0.20-1.00) X 10*3/uL Sodium 135 L (137-145) mmol/L Carbon Dioxide (21.6-31.8) mmol/L BUN 39 H (7-17) mg/dL Creatinine 2.67 H (0.52-1.04) mg/dL Est GFR (CKD-EPI) (>=60) Glucose 157 H (74-99) mg/dL Urine Appearance Turbid H (Clear) Urine Protein 1+ H (Negative) Urine Blood Large H (Negative) Ur Leukocyte Esterase Large H (Negative) Urine RBC 60 H (0-5) /hpf Urine WBC >182 H (0-5) /hpf Urine Bacteria Few H (None) /hpf 06/25/24 06/25/24 Range/Units 04:29 04:29 RBC 3.50 L (4.10-5.20) X 10*6/uL Hgb 10.1 L (12.0-15.0) g/dL Hct 32.5 L (37.2-46.3) % MCHC 31.1 L (32.0-37.0) g/dL RDW 14.8 H (11.5-14.5) % Lymphocytes # (1.0-4.8) k/uL Monocytes # 1.10 H (0.20-1.00) X 10*3/uL Sodium (137-145) mmol/L Carbon Dioxide 20.0 L (21.6-31.8) mmol/L BUN 28.9 H (7-17) mg/dL Creatinine 2.1 H (0.52-1.04) mg/dL Est GFR (CKD-EPI) 24 L (>=60) Glucose 111 H (74-99) mg/dL Urine Appearance (Clear) Urine Protein (Negative) Urine Blood (Negative) Ur Leukocyte Esterase (Negative) Urine RBC (0-5) /hpf Urine WBC (0-5) /hpf Urine Bacteria (None) /hpf Diabetes panel 06/24/24 06/25/24 Range/Units 10:39 04:29 Sodium 135 L 136 (137-145) mmol/L Potassium 4.2 4.0 (3.5-5.1) mmol/L Chloride 102 104 (98-107) mmol/L Carbon Dioxide 23 20.0 L (22-30) mmol/L BUN 39 H 28.9 H (7-17) mg/dL Creatinine 2.67 H 2.1 H (0.52-1.04) mg/dL Glucose 157 H 111 H (74-99) mg/dL Calcium 9.0 (8.4-10.2) mg/dL AST 16 (14-36) U/L ALT 11 (4-34) U/L Alkaline Phosphatase 47 (38-126) U/L Total Protein 6.4 (6.3-8.2) g/dL Albumin 3.6 (3.5-5.0) g/dL Calcium panel 06/24/24 Range/Units 10:39 Calcium 9.0 (8.4-10.2) mg/dL Albumin 3.6 (3.5-5.0) g/dL Pituitary panel 06/24/24 06/25/24 Range/Units 10:39 04:29 Sodium 135 L 136 (137-145) mmol/L Potassium 4.2 4.0 (3.5-5.1) mmol/L Chloride 102 104 (98-107) mmol/L Carbon Dioxide 23 20.0 L (22-30) mmol/L BUN 39 H 28.9 H (7-17) mg/dL Creatinine 2.67 H 2.1 H (0.52-1.04) mg/dL Glucose 157 H 111 H (74-99) mg/dL Calcium 9.0 (8.4-10.2) mg/dL Adrenal panel 06/24/24 06/25/24 Range/Units 10:39 04:29 Sodium 135 L 136 (137-145) mmol/L Potassium 4.2 4.0 (3.5-5.1) mmol/L Chloride 102 104 (98-107) mmol/L Carbon Dioxide 23 20.0 L (22-30) mmol/L BUN 39 H 28.9 H (7-17) mg/dL Creatinine 2.67 H 2.1 H (0.52-1.04) mg/dL Glucose 157 H 111 H (74-99) mg/dL Calcium 9.0 (8.4-10.2) mg/dL Total Bilirubin 0.5 (0.2-1.3) mg/dL AST 16 (14-36) U/L ALT 11 (4-34) U/L Alkaline Phosphatase 47 (38-126) U/L Total Protein 6.4 (6.3-8.2) g/dL Albumin 3.6 (3.5-5.0) g/dL - Imaging CT scan - abdomen: report reviewed, image reviewed CT scan - pelvis: report reviewed, image reviewed Assessment and Plan Assessment: Impression: Right ureteral calculus with obstruction, pyelonephrosis. Urinary tract infection with sepsis. Bilateral renal stones. Recommendations: The patient has been made nothing by mouth. She is on IV antibiotics. She'll have a stent placed sometime today. Says been discussed at length with the patient.
[2024-06-25] MEDS: IV FLUID CONTINUATION 1,000 ML IV ONE (13:49)
[2024-06-25] MEDS ORDERED: LIDOCAINE 1% INJ 10MG/ML (20 ML MDV) ONE (15:06)
[2024-06-25] MEDS ORDERED: MIDAZOLAM 2 MG/2 ML VIAL ONE (15:06)
[2024-06-25] MEDS ORDERED: PROPOFOL 10 MG/ML 20 ML VIAL IV ONE (15:06)
[2024-06-25] MEDS ORDERED: fentaNYL (PF) 50 MCG/ML 2 ML AMP ONE (15:06)
--- NOTE | 2024-06-25 15:42 | P.OP ---
Date of Procedure: 06/25/24 Preoperative Diagnosis: right ureteral calculus, right pyelonephrosis, urinary tract infection with sepsis Postoperative Diagnosis: same Procedure(s) Performed: cystoscopy with placement of 6 x 22 double-J catheter right Anesthesia: JAMES Surgeon: Jaden Olsen Estimated Blood Loss (ml): 0 Pathology: none sent Condition: stable Disposition: PACU Indications for Procedure: patient is 73. She has a history of stones. She presents to the emergency room with flank pain, low-grade fever infected looking urine and obstructing 6-7 mm distal ureteral stone. She comes for stent placement to relieve the obstructed infected urine. Secondarily she'll have right ureteroscopy laser lithotripsy as well as removal of some tiny renal stone Description of Procedure: patient brought to the operating suite. Given a general anesthetic. She is prepped and draped sterilely in lithotomy position. Cystoscopy Foroblique lens and 21-[place] sheath identifies a normal urethra. There is acute and chronic cystitis throughout the floor the bladder. Both ureteral orifices are normal. An 035 wires passed by the stone up into the kidney on the right side. Over the wires passed a 6 x 22 double-J catheter that coils in the right renal pelvis and in the bladder. The bladder is drained. The patient is awakened and returned recovery in good condition. She tolerated the procedure well. She'll be observed in the hospital overnight. In 7-10 days we will do a right ureteroscopy and laser lithotripsy.
--- NOTE | 2024-06-25 16:53 | FL ---
Intraoperative/procedural fluoroscopic services were provided for right ureteral stent insertion. Tot al fluoroscopy time is 13.1 seconds with a total of 2 submitted images to PACS. Total DAP 1.0824 Gycm 2. Please see the operative note for further details. [facility], , 06/25/2024 4:50 PM
--- NOTE | 2024-06-25 20:21 | P.PN ---
Subjective 73-year-old female, history of hypertension, hyperlipidemia, CKD, osteoarthritis, presents emerged part complaint of flank pain, nausea vomiting. Patient states has been sick for last 4 days states she feels like she has pain in both sides of her complaint but greater on the right. Patient denies any reports of fever no urinary symptoms currently. Patient denies any chest pain she does have a history of kidney stones. Lab review shows WBC 8.7, hemoglobin of 11.8 and platelet count of 369, sodium 135, potassium 4.2, BUNs/creatinine of 39/2.67 and blood glucose of 157, UA is positive for few bacteria large amount of WBCs and leukocyte esterase and blood -CT abdomen pelvis showing right ureteral calculus 6.6 mm 5 cm from UVJ Discussed case with Dr. Romo on-call urology regarding CT findings, labs and urinalysis patient will be n.p.o. for tomorrow stenting 06/25 Patient is awake and alert, not in distress Her flank pain is 7/10 today No dysuria, no other UTI symptoms, no suprapubic tenderness She is status post right double-J catheter placement. She remains on ceftriaxone and urine culture is pending She is on normal saline 75 mL/h Aspirin is on hold Blood pressure medication remain on hold Creatinine is improving 2.6 and 2.1 Hemoglobin 10. 1 Review of systems CONSTITUTIONAL: No fever, no malaise, no fatigue. HEENT: No recent visual problems or hearing problems. Denied any sore throat. CARDIOVASCULAR: No orthopnea, PND, no palpitations, no syncope. NEUROLOGICAL: No headaches, no weakness, no numbness. HEMATOLOGICAL: Denies any bleeding or petechiae. GENITOURINARY: Denies any burning micturition, frequency, or urgency. MUSCULOSKELETAL/RHEUMATOLOGICAL: Denies any joint pain, swelling, or any muscle pain. ENDOCRINE: Denies any polyuria or polydipsia. Active Medications Generic Name Dose Route Start Last Admin Trade Name Freq PRN Reason Stop Dose Admin Hydrocodone Bitart/Acetaminophen 1 each 06/24/24 15:00 06/24/24 22:10 Hydrocodone/Apap 5-325mg 1 Each Tab PO 1 each Q4HR PRN Administration Moderate Pain (Scale 4 to 6) Amlodipine Besylate 10 mg 06/25/24 09:00 06/25/24 08:13 Amlodipine 10 Mg Tab PO Not Given DAILY AYUSH Escitalopram Oxalate 20 mg 06/25/24 09:00 06/25/24 08:14 Escitalopram 20 Mg Tab PO 20 mg DAILY AYUSH Administration Sodium Chloride 1,000 mls @ 75 mls/hr 06/24/24 12:15 06/25/24 19:57 Saline 0.9% IV 75 mls/hr .[id number] AYUSH Administration Sodium Chloride 1,000 mls @ 75 mls/hr 06/24/24 15:00 06/25/24 17:16 Saline 0.9% IV Not Given .[id number] AYUSH Ceftriaxone Sodium 2 gm/ 50 mls @ 100 mls/hr 06/25/24 14:00 06/25/24 14:00 Sodium Chloride IVPB 100 mls/hr Q24H AYUSH Administration Protocol Lisinopril 20 mg 06/25/24 09:00 06/25/24 08:13 Lisinopril 20 Mg Tab PO Not Given DAILY AYUSH Morphine Sulfate 4 mg 06/24/24 15:00 06/25/24 19:57 Morphine Sulfate 4 Mg/Ml Syringe IV 4 mg Q4HR PRN Administration Severe Pain (Scale 7 to 10) Naloxone HCl 0.2 mg 06/24/24 15:00 Naloxone 0.4 Mg/Ml 1 Ml Vial IV Q2M PRN Opioid Reversal Ondansetron HCl 4 mg 06/24/24 15:00 06/25/24 08:36 Ondansetron 4 Mg/2 Ml Vial IVP 4 mg Q8HR PRN Administration Nausea And Vomiting Pantoprazole Sodium 40 mg 06/24/24 21:00 06/25/24 06:50 Pantoprazole 40 Mg Tablet PO Not Given [id number] Pravastatin Sodium 40 mg 06/24/24 21:00 06/25/24 19:56 Pravastatin Sodium 40 Mg Tab PO 40 mg HS AYUSH Administration Objective - Vital Signs Vital signs: Vital Signs Temp 99.6 F 06/25/24 07:39 Pulse 73 06/25/24 07:39 Resp 16 06/25/24 07:39 BP 85/46 06/25/24 07:39 Pulse Ox 94 L 06/25/24 07:39 FiO2 Intake & Output 06/24/24 06/25/24 06/25/24 18:59 06:59 18:59 Weight 66.678 kg Other: Voiding Method Toilet # Voids 3 - Exam GENERAL: The patient is alert and oriented x3, not in any acute distress. Well developed, well nourished. HEENT: Pupils are round and equally reacting to light. EOMI. No scleral icterus. No conjunctival pallor. Normocephalic, atraumatic. No pharyngeal erythema. No thyromegaly. CARDIOVASCULAR: S1 and S2 present. No murmurs, rubs, or gallops. PULMONARY: Chest is clear to auscultation, no wheezing , no crackles. ABDOMEN: Soft, nontender, nondistended, normoactive bowel sounds. No palpable organomegaly. Mild right flank tenderness MUSCULOSKELETAL: No joint swelling or deformity. EXTREMITIES: No cyanosis, clubbing, or pedal edema. NEUROLOGICAL: Gross neurological examination did not reveal any focal deficits. SKIN: No rashes. no petechiae. - Labs CBC & Chem 7: 06/25/24 04:29 06/25/24 04:29 Labs: Abnormal Lab Results - Last 24 Hours (Table) 06/24/24 06/25/24 06/25/24 Range/Units 10:39 04:29 04:29 RBC 3.50 L (4.10-5.20) X 10*6/uL Hgb 10.1 L (12.0-15.0) g/dL Hct 32.5 L (37.2-46.3) % MCHC 31.1 L (32.0-37.0) g/dL RDW 14.8 H (11.5-14.5) % Monocytes # 1.10 H (0.20-1.00) X 10*3/uL Carbon Dioxide 20.0 L (21.6-31.8) mmol/L BUN 28.9 H (9.0-27.0) mg/dL Creatinine 2.1 H (0.6-1.5) mg/dL Est GFR (CKD-EPI) 24 L (>=60) Glucose 111 H (70-110) mg/dL Urine Appearance Turbid H (Clear) Urine Protein 1+ H (Negative) Urine Blood Large H (Negative) Ur Leukocyte Esterase Large H (Negative) Urine RBC 60 H (0-5) /hpf Urine WBC >182 H (0-5) /hpf Urine Bacteria Few H (None) /hpf Assessment and Plan Assessment: 1. Right ureteral calculus CT of the abdomen pelvis reveals right ureteral calculus 6.6 mm, 5 cm from the UVJ -Patient has been discussed with urology and plan is to keep patient n.p.o. tonight for stent placement tomorrow -We will continue with pain control with IV morphine -Normal saline at rate of 100 cc an hour 2. UTI; pyelonephritis, UA reveals large amount of leukocyte esterase, WBCs and nitrites -Patient has been placed on IV antibiotics per urology recommendations; further recommendations once cultures available. Urine culture collected on gram- negative bacilli 3. Acute renal injury; BUN/creatinine elevated at 39/2.67; patient will be placed on IV fluids with plans to monitor strict BERENICE's, daily weights, renal fun ction electrolytes; avoid nephrotoxins and hypotension -Blood pressure improving, creatinine improving. Blood pressure medication is on hold 4. Hypertension; Aldactone 25 mg daily, hydrochlorothiazide 25 mg daily and Norvasc 5 mg daily (all remain on hold for renal) Hold home medications and monitor blood pressure closely 5. Hyperlipidemia; pravastatin DVT prophylaxis; SCDs, subcutaneous heparin CODE STATUS; full code
--- NOTE | 2024-06-26 08:02 | P.PN ---
Subjective Progress Note Date: 06/26/24 the patient is in the hospital for an obstructing right ureteral stone with pyonephrosis.SHe underwent a cysto with stent placement yesterday She is afebrile and feeling better. Objective - Vital Signs Vital signs: Vital Signs Temp 97.9 F 06/26/24 07:57 Pulse 64 06/26/24 07:57 Resp 16 06/26/24 07:57 BP 101/65 06/26/24 07:57 Pulse Ox 96 06/26/24 07:57 FiO2 Intake & Output 06/25/24 06/26/24 06/26/24 18:59 06:59 18:59 Intake Total 700 900 Output Total 0 Balance 700 900 Intake: IV 700 Intake, IV Titration 900 Amount Sodium Chloride 0.9% 1, 900 000 ml @ 75 mls/hr IV . [id number] [facility] Rx#:[id number] Output: Estimated Blood Loss 0 Other: Voiding Method Toilet Toilet # Voids 2 - Labs CBC & Chem 7: 06/25/24 04:29 06/25/24 04:29 Labs: Abnormal Lab Results - Last 24 Hours (Table) 06/25/24 06/25/24 Range/Units 04:29 04:29 RBC 3.50 L (4.10-5.20) X 10*6/uL Hgb 10.1 L (12.0-15.0) g/dL Hct 32.5 L (37.2-46.3) % MCHC 31.1 L (32.0-37.0) g/dL RDW 14.8 H (11.5-14.5) % Monocytes # 1.10 H (0.20-1.00) X 10*3/uL Carbon Dioxide 20.0 L (21.6-31.8) mmol/L BUN 28.9 H (9.0-27.0) mg/dL Creatinine 2.1 H (0.6-1.5) mg/dL Est GFR (CKD-EPI) 24 L (>=60) Glucose 111 H (70-110) mg/dL Microbiology - Last 24 Hours (Table) 06/24/24 15:20 Blood Culture - Preliminary Blood 06/24/24 10:39 Urine Culture - Preliminary Urine,Voided Gram Neg Bacilli Assessment and Plan Assessment: Impression: right ureteral stone with pyonephrosis sp stent placement. the patient may go home on ab from a uroligical standpoint and I will arrange for stone manipulation in 7-10 days.
[2024-06-26] MEDS: HEPARIN SODIUM,PORCINE 5,000 UNIT/ML 1 ML VIAL SQ SCH (08:05)
[2024-06-26 08:43] LABS: Basophils # (A) 0.04 X 10*3/uL (0.00-0.10); Basophils % (A) 0.5 %; Eosinophils # (A) 0.31 X 10*3/uL (0.04-0.35); Eosinophils % (A) 3.7 %; HCT 33.8 % (37.2-46.3); HGB 10.3 g/dL (12.0-15.0); Lymphocytes # (A) 1.69 X 10*3/uL (0.90-5.00); Lymphocytes % (A) 20.3 %; MCH 28.1 pg (27.0-32.0); MCHC 30.5 g/dL (32.0-37.0); MCV 92.1 FL (80.0-97.0); Mean Platelet Volume 10.3 FL (9.5-12.2); Monocytes # (A) 1.14 X 10*3/uL (0.20-1.00); Monocytes % (A) 13.7 %; NRBC Per 100 WBC 0 X 10*3/uL (0.00-0.01); Neutrophils # (A) 5.08 X 10*3/uL (1.80-7.70); Neutrophils % (A) 61.2 %; Platelet Count 332 X 10*3/uL (140-440); RBC 3.67 X 10*6/uL (4.10-5.20); RDW 14.8 % (11.5-14.5); WBC 8.31 X 10*3/uL (4.50-10.00)
[2024-06-26 08:48] LABS: BUN/Creat Ratio 11.63 Ratio (12.00-20.00); Blood Urea Nitrogen 22.1 mg/dL (9.0-27.0); Calcium 8.4 mg/dL (8.7-10.3); Carbon Dioxide 23.6 mmol/L (21.6-31.8); Chloride 105 mmol/L (96-109); Glucose 118 mg/dL (70-110); Potassium 4.2 mmol/L (3.5-5.5); Sodium 138 mmol/L (135-145)
--- NOTE | 2024-06-26 11:51 | CDI ---
Documentation Clarification Form Date: 06/26/2024 11:37:15 AM From: Kirstin Bueno RN CCDS Phone: [phone] Admit Date: 06/24/2024 02:50:00 PM Patient Name: Luisana Echevarria Visit Number: [id number] Discharge Date: ATTENTION: The Clinical Documentation Specialists (CDI) and [facility] Coding Staff appreciate your assistance in clarifying documentation. Please respond to the clarification below the line at the bottom and electronically sign. The CDI & [facility] Coding staff will review the response and follow-up if needed. Please note: Queries are made part of the Legal Health Record. If you have any questions, please contact the author of this message via ITS. Provider Kathleen Sterling NP Sepsis is documented 06/25, Urology consult which may lack sufficient clinical evidence/support in the medical record. Additional clarification is requested. History/Risk Factors: 73 year old female presents to the ED after being sick for four days with pain in both sides greater on the right, nausea and vomiting. Medical history : Gerd/Reflux, HLD, HTN, OA, Renal Disease, kidney stones and Utis. ED note 06/24. Clinical Indicators: VSS, 06/24: B/P 94/64, HR 82, Temp 98.2F Oral, 18RR, SpO2 98% ra LABS, 06/24: Wbc 8.7 Urine culture: Gram neg bacilli Treatment: 06/24 0.9NS 1L IV Bolus; 06/24 0.9NS 75cc IV, 06/24 Ceftriaxone IVPB Q24H; After work up and study, please clarify which diagnosis is most appropriate? [ ] Sepsis ruled out [x ] Sepsis is a valid diagnosis as evidence by the following: (Please add rationale): _uti with ecoli, poa [ ] Other, please specify [ ] Unable to determine SIRS Criteria: 2 or more of the following may indicate SIRS Temperature < 96.8F (36C) or > 101.0F (38.3C) Heart Rate > 90 bpm Respiratory Rate > 20 breaths/min or PaCO2 < 32 mmHg White Blood Cell Count > 12,000 or < 4,000 cells/mm3 or > 10% bands (Template Last Reviewed: August 2023) JEB
--- NOTE | 2024-06-26 14:49 | P.PN ---
Subjective Progress Note Date: 06/26/24 73-year-old female, history of hypertension, hyperlipidemia, CKD, osteoarthritis, presents emerged part complaint of flank pain, nausea vomiting. Patient states has been sick for last 4 days states she feels like she has pain in both sides of her complaint but greater on the right. Patient denies any reports of fever no urinary symptoms currently. Patient denies any chest pain she does have a history of kidney stones. Lab review shows WBC 8.7, hemoglobin of 11.8 and platelet count of 369, sodium 135, potassium 4.2, BUNs/creatinine of 39/2.67 and blood glucose of 157, UA is positive for few bacteria large amount of WBCs and leukocyte esterase and blood -CT abdomen pelvis showing right ureteral calculus 6.6 mm 5 cm from UVJ Discussed case with Dr. Romo on-call urology regarding CT findings, labs and urinalysis patient will be n.p.o. for tomorrow stenting 06/25 Patient is awake and alert, not in distress Her flank pain is 7/10 today No dysuria, no other UTI symptoms, no suprapubic tenderness She is status post right double-J catheter placement. She remains on ceftriaxone and urine culture is pending She is on normal saline 75 mL/h Aspirin is on hold Blood pressure medication remain on hold Creatinine is improving 2.6 and 2.1 Hemoglobin 10. 1 06/26/2024 Patient is seen and evaluated in follow-up with urology following status post stenting to the right. Urine culture preliminary showing gram-negative bacilli and patient is continued on ceftriaxone showing clinical improvement. Patient continues on gentle hydration and kidney functions are improving as well. Patient reports to feeling well and urology reported she can go home with outpatient follow-up. Currently awaiting cultures. Discussed with micro lab and cultures will be available after 5 PM on 06/26/2024. Blood cultures remain negative. Patient is afebrile. Patient denies any chest pain or shortness of b reath and reports to tolerating diet. Patient denies any burning or pain or frequency with urination. Review of systems CONSTITUTIONAL: No fever, no malaise, no fatigue. HEENT: No recent visual problems or hearing problems. Denied any sore throat. CARDIOVASCULAR: No orthopnea, PND, no palpitations, no syncope. NEUROLOGICAL: No headaches, no weakness, no numbness. HEMATOLOGICAL: Denies any bleeding or petechiae. GENITOURINARY: Denies any burning micturition, frequency, or urgency. MUSCULOSKELETAL/RHEUMATOLOGICAL: Denies any joint pain, swelling, or any muscle pain. ENDOCRINE: Denies any polyuria or polydipsia. Physical exam: GENERAL: The patient is alert and oriented x3, not in any acute distress. Well developed, well nourished. HEENT: Pupils are round and equally reacting to light. EOMI. No scleral icterus. No conjunctival pallor. Normocephalic, atraumatic. No pharyngeal erythema. No thyromegaly. CARDIOVASCULAR: S1 and S2 present. No murmurs, rubs, or gallops. PULMONARY: Chest is clear to auscultation, no wheezing , no crackles. ABDOMEN: Soft, nontender, nondistended, normoactive bowel sounds. No palpable organomegaly. Mild right flank tenderness MUSCULOSKELETAL: No joint swelling or deformity. EXTREMITIES: No cyanosis, clubbing, or pedal edema. NEUROLOGICAL: Gross neurological examination did not reveal any focal deficits. SKIN: No rashes. no petechiae. Assessment: 1. Right ureteral calculus as noted on CT imaging with calculus measuring 6.6 mm, 5 cm from the UVJ, status post right ureteral double-J catheter placement 2. UTI; pyelonephritis, UA reveals large amount of leukocyte esterase, WBCs and nitrites, preliminary culture showing gram-negative bacilli and awaiting finalized culture 3. Acute renal injury secondary to right ureteral stent; improving 4. Hypertension; continue current home medications 5. Hyperlipidemia; pravastatin GI prophylaxis DVT prophylaxis Full code Plan: Patient is status post right double-J catheter placement with urology and has been cleared by urology for discharge with outpatient follow-up in 1 to 2 weeks. Preliminary culture showing gram-negative bacilli and awaiting finalized cultures. Discussed with micro lab and results will be later this evening on second shift 06/26/2024 Continue gentle hydration and encourage small frequent meals If patient remains hospitalized, will follow-up on repeat labs in the a.m. and monitor kidney functions Possible discharge later this evening and/or possibly within the next 24 hours pending finalized cultures to determine appropriate antibiotics. Patient is agreeable and aware she is awaiting on cultures. The impression and plan of care has been dictated by Kathleen Sterling, Nurse Practitioner as directed. Dr. Jasvir MD I have performed a history and examination and MDM of this patient, discussed the same with the dictator, and agree with the dictator's assessment and plan as written ,documented as a scribe. Based on total visit time, I have performed more than 50% of the visit. Objective - Vital Signs Vital signs: Vital Signs Temp 97.9 F 06/26/24 07:57 Pulse 64 06/26/24 07:57 Resp 16 06/26/24 07:57 BP 101/65 06/26/24 07:57 Pulse Ox 96 06/26/24 07:57 FiO2 Intake & Output 06/25/24 06/26/24 06/26/24 18:59 06:59 18:59 Intake Total 700 900 Output Total 0 Balance 700 900 Intake: IV 700 Intake, IV Titration 900 Amount Sodium Chloride 0.9% 1, 900 000 ml @ 75 mls/hr IV . [id number] AYUSH Rx#:[id number] Output: Estimated Blood Loss 0 Other: Voiding Method Toilet Toilet Toilet # Voids 2 - Labs CBC & Chem 7: 06/26/24 03:59 06/26/24 03:59 Labs: Abnormal Lab Results - Last 24 Hours (Table) 06/26/24 06/26/24 Range/Units 03:59 03:59 RBC 3.67 L (4.10-5.20) X 10*6/uL Hgb 10.3 L (12.0-15.0) g/dL Hct 33.8 L (37.2-46.3) % MCHC 30.5 L (32.0-37.0) g/dL RDW 14.8 H (11.5-14.5) % Immature Gran # 0.05 H (0.00-0.04) X 10*3/uL Monocytes # 1.14 H (0.20-1.00) X 10*3/uL Creatinine 1.9 H (0.6-1.5) mg/dL Est GFR (CKD-EPI) 27 L (>=60) BUN/Creatinine Ratio 11.63 L (12.00-20.00) Ratio Glucose 118 H (70-110) mg/dL Calcium 8.4 L (8.7-10.3) mg/dL Microbiology - Last 24 Hours (Table) 06/24/24 15:20 Blood Culture - Preliminary Blood 06/24/24 10:39 Urine Culture - Preliminary Urine,Voided Gram Neg Bacilli
[2024-06-27 03:38] VITALS: RESP 16
[2024-06-27 09:28] LABS: African American GFR (CKD) 38 (>60 ml/min/1.73 sqM); Anion Gap 8 mmol/L; Blood Urea Nitrogen 15 mg/dL (7-17); Calcium 8.5 mg/dL (8.4-10.2); Carbon Dioxide 23 mmol/L (22-30); Chloride 108 mmol/L (98-107); Glucose 151 mg/dL (74-99); Non-African American GFR(CKD) 33 (>60 ml/min/1.73 sqM); Potassium 3.7 mmol/L (3.5-5.1); Sodium 139 mmol/L (137-145)
[2024-06-27 09:39] VITALS: BP 122/68; PULSE 62; TEMP 98.3
--- NOTE | 2024-06-29 19:27 | CDI ---
Documentation Clarification Form Date: 06/29/2024 07:17:40 PM From: Gwen Torres Phone: Admit Date: 06/24/2024 02:50:00 PM Patient Name: Luisana Echevarria Visit Number: [id number] Discharge Date: 06/27/2024 12:23:00 PM ATTENTION: The Clinical Documentation Specialists (CDI) and [facility] Coding Staff appreciate your assistance in clarifying documentation. Please respond to the clarification below the line at the bottom and electronically sign. The CDI & [facility] Coding staff will review the response and follow-up if needed. Please note: Queries are made part of the Legal Health Record. If you have any questions, please contact the author of this message via ITS. Doctor/Provider: Violeta Izquierdo Unspecified CKD is documented per H&P and following Progress Notes. Additional clarification regarding the stage of CKD is requested. History/Risk Factors: 73yo F, Right ureteral calculus, UTI, RAMAKRISHNA on CKD, HTN, HLD, sepsis d/t E Coli Clinical Indicators: BUN: 06/24 39 06/25 28.9 CR: 06/24 2.67 06/25 2.1 GFR: 06/24 17-19 06/25 24 06/26 27 Treatment: Placedon IV fluids with plans to monitor strict BERENICE's, daily weights, renal fx electrolytes;avoidnephrotoxins andhypotension Please clarify the stage of the CKD, if known: [ ] CKD Stage 3b [ @@ ] CKD Stage 4 [ ] CKD Stage 5 [ ] Other, please specify [ ] Unable to determine Reference: National Kid[employer] Stage 1 eGFR = 90 and kidney damage for =3 months Stage 2 eGFR 60-89 and kidney damage for =3 months Stage 3a eGFR 45-59 and kidney damage for =3 months Stage 3b eGFR 30-44 and kidney damage for =3 months Stage 4 eGFR 15-29 r and kidney damage for =3 months Stage 5 eGFR <15 and kidney damage for =3 months (Template Last revised: August 2023) MTDD
--- NOTE | 2024-07-01 11:49 | P.DS ---
Providers Date of admission: 06/24/24 14:50 Expected date of discharge: 06/27/24 Attending physician: Violeta Izquierdo MD Consults: 06/24/24 15:00 Consult Physician Urgent Consulting Provider: Tye Romo Consult Reason/Comments: Ureteral calculus Do you want consulting provider notified?: Yes Primary care physician: Eder Dread [place] Hospital Course: Final diagnosis 1. Right ureteral calculus as noted on CT imaging with calculus measuring 6.6 mm, 5 cm from the UVJ, status post right ureteral double-J catheter placement 2. UTI; pyelonephritis, UA reveals large amount of leukocyte esterase, WBCs and nitrites, preliminary culture showing ecoli, with sepsis, present on admission 3. Acute renal injury secondary to right ureteral stent; improving 4. Hypertension; continue current home medications 5. Hyperlipidemia; pravastatin 6. Acute on chronic kidney disease, CKD stage IV GI prophylaxis DVT prophylaxis Full code Discharge disposition Patient is being discharged in a stable condition with guarded prognosis to home. Patient will follow-up with Dr. Canada in the outpatient setting upon discharge. Patient is to continue with oral Ceftin and outpatient follow-up with urology as scheduled. Total time taken is greater than 35 minutes. Hospital course This is a 73-year-old female who was recently admitted with UTI with right ureteral calculus with sepsis, present on admission status post right ureteral double-J catheter placement with urology. Patient urinary tract infection with cultures that finalized showing E. coli with sensitivities will continue on oral Ceftin. Patient was continued on IV ceftriaxone during hospitalization. Patient has been cleared by urology recommending outpatient follow-up in 1 week. Recommend follow-up labs in the outpatient setting to monitor kidney functions. Kidney functions are improving and encouraged to continue with hydration. Avoid diuretics at this time and follow-up with repeat labs. Patient is medi stef stable and would like to go home feeling well. Please refer to other consultation note for further HPI. Currently no reports of chest pain, shortness of breath, or palpitations. Patient is afebrile. No reports of nausea or vomiting and patient is tolerating diet. Patient will be discharged home today. Physical exam: Gen: This is a 73-year-old female who is awake, alert and oriented x 3, well- developed, elderly appearing HEENT: Head is atraumatic, normocephalic. Pupils equal, round. Sclerae is anicteric. NECK: Supple. No JVD. No lymphadenopathy. No thyromegaly. LUNGS: Clear to auscultation. No wheezes or rhonchi. No intercostal retractions. HEART: Regular rate and rhythm. No murmur. ABDOMEN: Soft. Bowel sounds are present. No masses. No tenderness. EXTREMITIES: No pedal edema. No calf tenderness. NEUROLOGICAL: Patient is awake, alert and oriented x3. Cranial nerves 2 through 12 are grossly intact. Please refer to medication reconciliation sheet for a list of medications. The impression and plan of care has been dictated by Kathleen Sterling, Nurse Practitioner as directed. Dr. Jasvir MD I have performed a history and examination and MDM of this patient, discussed the same with the dictator, and agree with the dictator's assessment and plan as written ,documented as a scribe. Based on total visit time, I have performed more than 50% of the visit. Patient Condition at Discharge: Fair Plan - Discharge Summary Discharge Rx Participant: No New Discharge Prescriptions: New cefuroxime axetiL [Ceftin] 500 mg PO BID 7 Days #14 tab Ondansetron Odt [Zofran Odt] 4 mg PO Q8HR PRN #20 tab PRN Reason: Nausea HYDROcodone/APAP 5-325MG [[place] 5-325] 1 each PO Q4HR PRN #6 tab PRN Reason: Moderate Pain (Scale 4 To 6) amLODIPine [Norvasc] 10 mg PO DAILY #30 tab Continue Aspirin 81 mg PO DAILY Biotin 5 mg PO DAILY Calcium Carbonate/Vitamin D3 [Calcium 600 mg-Vit D3 5 mcg (200 unit)] 2 tab PO DAILY Omeprazole 20 mg PO BID Potassium Citrate 99 mg PO BID Ibandronate Sodium [Boniva] 150 mg PO DIRECTED Multivit-Min/Iron/Folic/Lutein [Centrum Silver Women Tablet] 1 tab PO DAILY Pravastatin Sodium [Pravachol] 40 mg PO HS Escitalopram [Lexapro] 20 mg PO DAILY Discontinued Spironolactone [Aldactone] 12.5 mg PO DAILY hydroCHLOROthiazide [Hydrodiuril] 25 mg PO DAILY amLODIPine BESYLATE/BENAZEPRIL [amLODIPine BESYLATE/BENAZEPRIL 10-20 mg] 1 cap PO DAILY Naproxen [Naprosyn] 500 mg PO BID Discharge Medication List Aspirin 81 mg PO DAILY 06/10/14 [History] Biotin 5 mg PO DAILY 02/03/21 [History] Multivit-Min/Iron/Folic/Lutein [Centrum Silver Women Tablet] 1 tab PO DAILY 02/03/21 [History] Pravastatin Sodium [Pravachol] 40 mg PO HS 02/05/22 [History] Calcium Carbonate/Vitamin D3 [Calcium 600 mg-Vit D3 5 mcg (200 unit)] 2 tab PO DAILY 03/22/22 [History] Omeprazole 20 mg PO BID 03/22/22 [History] Potassium Citrate 99 mg PO BID 12/21/23 [History] Escitalopram [Lexapro] 20 mg PO DAILY 06/24/24 [History] Ibandronate Sodium [Boniva] 150 mg PO DIRECTED 06/24/24 [History] HYDROcodone/APAP 5-325MG [[place] 5-325] 1 each PO Q4HR PRN #6 tab 06/27/24 [Rx] Ondansetron Odt [Zofran Odt] 4 mg PO Q8HR PRN #20 tab 06/27/24 [Rx] amLODIPine [Norvasc] 10 mg PO DAILY #30 tab 06/27/24 [Rx] cefuroxime axetiL [Ceftin] 500 mg PO BID 7 Days #14 tab 06/27/24 [Rx] Follow up Appointment(s)/Referral(s): Eder Canada MD [Primary Care Provider] - 07/11/24 9:15 am Jaden Olsen MD [STAFF PHYSICIAN] - 07/12/24 10:00 am Ambulatory/Diagnostic Orders: Basic Metabolic Panel [LAB.AMB] Time Frame: 3 Days, Location: None Selected Activity/Diet/Wound Care/Special Instructions: Activity limited until follow-up Follow-up with primary care provider on discharge Follow-up with urology in 1 to 2 weeks as discussed Continue taking antibiotics as prescribed until finished Repeat labs to monitor kidney functions and electrolytes in 2 to 3 days Avoid diuretics until repeat labs have been drawn Discharge Disposition: HOME SELF-CARE
== END 2024-06-27 12:23 | disposition home or self-care (01) | DRG 854 ==
LOC: EC 10:25 → 4SSUR 14:50
PROVIDERS: ADMIT Internal Medicine; ATTEND Internal Medicine
PROC: 0T768DZ Dilation of Right Ureter with Intraluminal Device, Via Natural or Artificial Opening Endoscopic (ICD-10-PCS; principal; 2024-06-25 09:30)
DX: A41.51 Sepsis due to Escherichia coli [E. coli] (principal); N13.6 Pyonephrosis; Q61.5 Medullary cystic kidney; N17.9 Acute kidney failure, unspecified; N30.00 Acute cystitis without hematuria; N18.4 Chronic kidney disease, stage 4 (severe); I12.9 Hypertensive chronic kidney disease with stage 1 through stage 4 chronic kidney disease, or unspecified chronic kidney disease; N30.20 Other chronic cystitis without hematuria; E78.5 Hyperlipidemia, unspecified; Z79.82 Long term (current) use of aspirin; Z79.1 Long term (current) use of non-steroidal anti-inflammatories (NSAID); Z87.442 Personal history of urinary calculi; Z79.899 Other long term (current) drug therapy
CPT/HCPCS: 36415; 74176; 80048; 80053; 81001; 83605; 83690; 85025; 87040; 87077; 87086; 87186; 96361; 96374; 96375; 99285

== ENCOUNTER → 2024-07-04 | Day surgery (SDC) | payer MEDICARE ==
--- NOTE | 2024-07-03 19:01 | P.GSHP ---
History of Present Illness H&P Date: 07/03/24 73 yo female with a history of stones. Was recently in the hospital with right ureteral stone, uti and secondary right pyonephrosis. Neris underwent a stent placement and antibiotics. She now comes for right ureteroscopy with laser lithoitripsy and possible replacement of the stent, - Constitutional Constitutional: Denies chills, Denies fever - EENT Eyes: denies blurred vision, denies pain Ears, nose, mouth and throat: Denies headache, Denies sore throat - Cardiovascular Cardiovascular: Denies chest pain, Denies shortness of breath - Respiratory Respiratory: Denies cough, Denies 7 - Gastrointestinal Gastrointestinal: Denies abdominal pain, Denies diarrhea, Denies nausea, Denies vomiting - Genitourinary (Female) Genitourinary: Denies dysuria, Denies hematuria - Genitourinary (Male) Genitourinary: Denies dysuria, Denies hematuria - Musculoskeletal Musculoskeletal: Denies myalgias - Integumentary Integumentary: Denies pruritus, Denies rash - Neurological Neurological: Denies numbness, Denies weakness - Psychiatric Psychiatric: Denies anxiety, Denies depression - Endocrine Endocrine: Denies fatigue, Denies weight change Past Medical History Past Medical History: GERD/Reflux, Hyperlipidemia, Hypertension, Osteoarthritis (OA), Renal Disease Additional Past Medical History / Comment(s): Medullary sponge kidney and kidney stones, UTIs, osteoporosis,gastritis, chronic back pain, migraines History of Any Multi-Drug Resistant Organisms: None Reported Past Surgical History: Section, Orthopedic Surgery Additional Past Surgical History / Comment(s): Multiple surgeries for kidney stones/cysto's/litho's/double J stents/since removed, R wrist cyst that caused bone fracture, pain clinic procedures, EGD, colonoscopy, bilateral catarct removals. 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 Smoking Status: Never smoker - Past Family History Father Family Medical History: Myocardial Infarction (VT) Additional Family Medical History / Comment(s): Father is . Mother Family Medical History: CVA/TIA, Hyperlipidemia, Hypertension Additional Family Medical History / Comment(s): Mother is 96 yrs old. Medications and Allergies Home Medications Medication Instructions Recorded Confirmed Type Aspirin 81 mg PO DAILY 06/10/14 06/27/24 History Biotin 5 mg PO DAILY 02/03/21 06/27/24 History Multivit-Min/Iron/Folic/Lutein 1 tab PO DAILY 02/03/21 06/27/24 History [Centrum Silver Women Tablet] Pravastatin Sodium [Pravachol] 40 mg PO HS 02/05/22 06/27/24 History Calcium Carbonate/Vitamin D3 2 tab PO DAILY 03/22/22 06/27/24 History [Calcium 600 mg-Vit D3 5 mcg (200 unit)] Omeprazole 20 mg PO BID 03/22/22 06/27/24 History Potassium Citrate 99 mg PO BID 12/21/23 06/27/24 History Escitalopram [Lexapro] 20 mg PO DAILY 06/24/24 06/27/24 History Ibandronate Sodium [Boniva] 150 mg PO DIRECTED 06/24/24 06/27/24 History HYDROcodone/APAP 5-325MG [[place] 1 each PO Q4HR PRN #6 tab 06/27/24 06/27/24 Rx 5-325] Ondansetron Odt [Zofran Odt] 4 mg PO Q8HR PRN #20 tab 06/27/24 Rx amLODIPine [Norvasc] 10 mg PO DAILY #30 tab 06/27/24 06/27/24 Rx cefuroxime axetiL [Ceftin] 500 mg PO BID 7 Days #14 tab 06/27/24 06/27/24 Rx Allergies Allergy/AdvReac Type Severity Reaction Status Date / Time Iodinated Contrast Media Allergy Rash/Hives Verified 06/27/24 13:14 Surgical - Exam - General well developed, well nourished, no distress - Eyes normal ocular movement, no icteric - ENT no hearing loss, no congestion - Neck no masses, trachea midline - Respiratory normal respiratory effort, clear to auscultation - Abdomen Abdomen: soft, non tender, no guarding, no rigid, no rebound - Integumentary no rash, no abnormal pigmentation - Neurologic no disoriented, no combative - Psychiatric oriented to time, oriented to person, oriented to place, speech is normal, memory intact Results - Imaging CT scan - abdomen: report reviewed, image reviewed CT scan - pelvis: report reviewed, image reviewed Assessment and Plan Assessment: Impression: right ureteral stone s/p stent placement Plan: right ureteroscopy with laser lithotripsy and probable stent removal
[~2024-07-04] MED LIST changes: -DENOSUMAB 60 MG/ML 1 ML SYRINGE SQ NR; +HYDROmorphone 0.5 MG/0.5 ML SYRINGE IVP PRN; +LIDOCAINE 1% (10MG/ML) FOR IV START INTRADERMA PRN; +LIDOCAINE 1% INJ 10MG/ML (20 ML MDV) ONE; +MIDAZOLAM 2 MG/2 ML VIAL IV PRN; +PHENYLEPHRINE-0.9% NACL SYG 1,000 MCG/10 ML SYRINGE ONE; +PROPOFOL 10 MG/ML 20 ML VIAL IV ONE; +WATER FOR INJECTION, STERILE 10 ML VIAL IV ONE; +ePHEDrine 50 MG/ML 1 ML VIAL ONE; +fentaNYL (PF) 50 MCG/ML 2 ML AMP IVP PRN; +fentaNYL (PF) 50 MCG/ML 2 ML AMP ONE
--- NOTE | 2024-07-04 06:37 | XR ---
EXAMINATION TYPE: XR KUB DATE OF EXAM: 07/04/2024 6:25 AM CLINICAL HISTORY: Kidney stones TECHNIQUE: Single supine KUB image of the abdomen is obtained. COMPARISON: CT June 24, 2024 FINDINGS: There is new double-J right ureter stent. Several bilateral small renal calculi redemonstra leandro. Largest right kidney measures up to 5 mm in size. Scattered small calcifications in the pelvis f avor phleboliths. Overall nonobstructive bowel gas pattern. Levoconvex scoliosis centered at L3 level is redemonstrated . IMPRESSION: As above. [facility], , 07/04/2024 6:35 AM
[2024-07-04] MEDS: ONDANSETRON 4 MG/2 ML VIAL IVP ONE (07:20)
[2024-07-04] MEDS: FAMOTIDINE 20 MG/2 ML VIAL IV STA (07:20)
[2024-07-04] MEDS: DEXAMETHASONE SOD PHOSPHATE 4 MG/ML 1 ML VIAL IV ONE (07:20)
[2024-07-04] MEDS: LACTATED RINGERS 1,000 ML IV SCH (07:21)
[2024-07-04] MEDS: IV FLUID CONTINUATION 1,000 ML IV ONE ×2 (07:27→13:45)
[2024-07-04] MEDS: AMPICILLIN 1,000 MG in SODIUM CHLORIDE 0.9% 50 ML IVPB PRN (07:33)
[2024-07-04] MEDS: GENTAMICIN 80 MG in SODIUM CHLORIDE 0.9% 100 ML IVPB PRN (07:49)
[2024-07-04] MEDS: IOPAMIDOL-370 100ML BTL MISCELLANE ONE ×2 (08:10)
--- NOTE | 2024-07-04 08:41 | P.OP ---
Date of Procedure: 07/04/24 Preoperative Diagnosis: right ureteral and renal calculi Postoperative Diagnosis: same Procedure(s) Performed: cystoscopy, removal double-J catheter right, right ureteroscopy with laser lithotripsy, right renoscopy with laser lithotripsy and stone basketing Anesthesia: JAMES Surgeon: Jaden Olsen Estimated Blood Loss (ml): 0 Pathology: other (stone) Condition: stable Disposition: PACU Indications for Procedure: the patient is 73. Recently she was in the hospital for an obstructing ureteral calculus and infection with secondary pyelonephrosis. She now comes for stent removal right ureteroscopy and laser lithotripsy to ureteral and renal stones. Description of Procedure: patient brought to the operating suite. Given a general anesthetic. Placed lithotomy position with a sterile prep and drape. Cystoscopy Foroblique lens and 21-Yoruba sheath identifies a normal bladder. There is a stent emanating from the right ureteral orifice. It is grasped and removed. I then pass a flexible ureteroscope up to the right ureteral stone. With the 275 laser probe it is broken into smaller fragments. The largest are basketed. I then advanced the ureteroscope up into the kidney. Several small stones are seen and are broken with the laser lithotripsy. There is a large stone broken into smaller fragments that is basketed and removed. I do an intraoperative nephrostogram and see no remaining obvious stones. I make sure looked throughout the collecting system completely. I do pullout right ureteroscopy and there is not significant edema or stones.I remove the stone fragments from the bladder the patient is awakened and returned recovery room in good condition. She tolerated the procedure well be discharged home upon recovery.
--- NOTE | 2024-07-04 08:46 | FL ---
EXAMINATION TYPE: FL urography retrograde DATE OF EXAM: 07/04/2024 8:36 AM COMPARISON: Pre Operative Images if available both CT/MRI or plain film CLINICAL INDICATION: Female, 73 years old with history of Cysto for rt kidney stone; TECHNIQUE: FL urography retrograde, multiple fluoroscopic images provided for procedure. Total fluoroscopy time: 2.07 minutes Total submitted images to PACS: 10 DAP: 13.067 mGym2 Gycm2 uGym2 cGycm2 or equivalent. FINDINGS: Fluoroscopic images during retrograde pyelogram demonstrate contrast in the renal collecting system. There is dilation of the collecting system. No evidence of extravasation of contrast. No immediate co mplication identified. IMPRESSION: 1. No evidence for intraoperative complication. 2. Please see the operative/procedural note for further details. [facility], , 07/04/2024 8:43 AM
[2024-07-04 08:50] VITALS: TEMP 96.8
[2024-07-04] MEDS: HYDROcodone/APAP 5-325MG 1 EACH TAB PO STA (09:48)
--- NOTE | 2024-07-04 12:16 | P.CRDCN ---
History of Present Illness History of present illness: HISTORY OF PRESENT ILLNESS: This is a 73-year-old female with a past medical history significant for hypertension, hyperlipidemia, and GERD. Patient does not follow with a corporate vp advertising & online. We have been asked to see the patient in consultation for chest pain. Patient examined at the bedside in the recovery room. Patient underwent cystoscopy, removal of double-J catheter, ureteroscopy with laser lithotripsy and right renoscopy with laser lithotripsy and stone basketing today with Dr. Sarthak desir. Post procedure, patient was having some pain and tightness in the middle of her chest. She states the pain only lasted a about 15 minutes and then resolved on its own. She denied nausea or vomiting. Denies shortness of breath. Denies sweating. Patient denies any chest pain or pressure at the time of examination. DIAGNOSTICS: - EKG reveals sinus mechanism with nonspecific ST-T wave changes - Laboratory data: Troponin negative x 1 - Current home cardiac medications include amlodipine 10 mg daily, pravastatin 40 mg at night, aspirin 81 mg daily - No previous echocardiogram, stress test, or cardiac catheterization available in EMR for review REVIEW OF SYSTEMS: At the time of my exam: CONSTITUTIONAL: Denies fever or chills. HEENT: Denies blurred vision, vision changes, or eye pain. Denies hemoptysis CARDIOVASCULAR: Denies chest pain. Denies orthopnea. Denies PND. Denies palpitations RESPIRATORY: Denies shortness of breath. GASTROINTESTINAL: Denies abdominal pain. Denies nausea or vomiting. HEMATOLOGIC: Denies bleeding disorders. GENITOURINARY: Denies any blood in urine. SKIN: Denies pruitis. Denies rash. PHYSICAL EXAM: VITAL SIGNS: Reviewed. GENERAL: Well-developed in no acute distress. HEENT: Head is normocephalic. Pupils are equal, round. Sclerae anicteric. Mucous membranes of the mouth are moist. Neck supple. No JVD or thyromegaly LUNGS: Respirations even and unlabored. Lungs essentially clear to auscultation bilaterally. HEART: Regular rate and rhythm. S1 and S2 heard. ABDOMEN: Soft. Nondistended. Nontender. EXTREMITIES: Normal range of motion. No clubbing or cyanosis. Peripheral pulses intact. No lower extremity edema NEUROLOGIC: Awake and alert. Oriented x 3. ASSESSMENT: Right ureteral and renal calculi, status post cystoscopy, removal double-J ca theter right, right ureteroscopy with laser lithotripsy, right renoscopy with laser lithotripsy and stone basketing Chest pain, troponin negative x 1 Hypertension Hyperlipidemia History of anxiety History of GERD PLAN: EKG without ischemic changes. Troponin negative x 1. Obtain additional troponin level in 3 hours Obtain 2D echo to assess cardiac structure and function Outpatient stress testing recommended If second troponin is negative and echocardiogram is unremarkable, patient may be discharged home today from a cardiac standpoint Patient to follow-up postdischarge in the office with Dr. Meng Nurse practitioner note has been reviewed by physician. Signing provider agrees with the documented findings, assessment, and plan of care documented by WALKING DRAGLINE OPERATOR as a scribe. Past Medical History Past Medical History: GERD/Reflux, Hyperlipidemia, Hypertension, Osteoarthritis (OA), Renal Disease Additional Past Medical History / Comment(s): Medullary sponge kidney and kidney stones, UTIs, osteoporosis,gastritis, chronic back pain, migraines History of Any Multi-Drug Resistant Organisms: None Reported Past Surgical History: Section, Orthopedic Surgery Additional Past Surgical History / Comment(s): Multiple surgeries for kidney stones/cysto's/litho's/double J stents/since removed, R wrist cyst that caused bone fracture, pain clinic procedures, EGD, colonoscopy, bilateral catarct removals. 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 Smoking Status: Never smoker - Past Family History Father Family Medical History: Myocardial Infarction (MD) Additional Family Medical History / Comment(s): Father is . Mother Family Medical History: CVA/TIA, Hyperlipidemia, Hypertension Additional Family Medical History / Comment(s): Mother is 96 yrs old. Medications and Allergies Home Medications Medication Instructions Recorded Confirmed Type Aspirin 81 mg PO DAILY 06/10/14 06/27/24 History Biotin 5 mg PO DAILY 02/03/21 06/27/24 History Multivit-Min/Iron/Folic/Lutein 1 tab PO DAILY 02/03/21 06/27/24 History [Centrum Silver Women Tablet] Pravastatin Sodium [Pravachol] 40 mg PO HS 02/05/22 06/27/24 History Calcium Carbonate/Vitamin D3 2 tab PO DAILY 03/22/22 06/27/24 History [Calcium 600 mg-Vit D3 5 mcg (200 unit)] Omeprazole 20 mg PO BID 03/22/22 06/27/24 History Potassium Citrate 99 mg PO BID 12/21/23 06/27/24 History Escitalopram [Lexapro] 20 mg PO DAILY 06/24/24 06/27/24 History Ibandronate Sodium [Boniva] 150 mg PO DIRECTED 06/24/24 06/27/24 History HYDROcodone/APAP 5-325MG [Hammond 1 each PO Q4HR PRN #6 tab 06/27/24 06/27/24 Rx 5-325] Ondansetron Odt [Zofran Odt] 4 mg PO Q8HR PRN #20 tab 06/27/24 07/04/24 Rx amLODIPine [Norvasc] 10 mg PO DAILY #30 tab 06/27/24 06/27/24 Rx cefuroxime axetiL [Ceftin] 500 mg PO BID 7 Days #14 tab 06/27/24 06/27/24 Rx Allergies Allergy/AdvReac Type Severity Reaction Status Date / Time Iodinated Contrast Media Allergy Rash/Hives Verified 07/04/24 06:40 Physical Exam Vitals: Vital Signs Temp Pulse Resp BP BP Pulse Ox 07/04/24 09:58 85 12 111/60 97 07/04/24 09:43 89 20 108/43 97 07/04/24 09:42 90 20 115/61 91 L 07/04/24 09:29 86 16 118/61 97 07/04/24 09:14 86 16 117/62 94 L 07/04/24 09:06 86 16 120/60 93 L 07/04/24 08:51 85 16 120/58 95 07/04/24 08:39 96.8 F L 93 12 119/57 95 07/04/24 06:46 97.0 F L 65 16 116/58 98 Intake and Output 07/03/24 07/04/24 07/04/24 22:59 06:59 14:59 Intake Total 777 Output Total 0 Balance 777 Intake: IV 777 Output: Estimated Blood Loss 0 Other: Weight 67.4 kg Results Current Medications Generic Name Dose Route Start Last Admin Trade Name Freq PRN Reason Stop Dose Admin Fentanyl Citrate 50 mcg 07/04/24 05:42 Fentanyl (Pf) 50 Mcg/Ml 2 Ml Amp IVP 07/04/24 23:00 Q3M PRN Pre-Op Pain Control Hydromorphone HCl 0.5 mg 07/04/24 05:42 Hydromorphone 0.5 Mg/0.5 Ml Syringe IVP 07/04/24 23:00 Q5M PRN Phase 1 or 2 - Pain Control Lactated Ringer's 1,000 mls @ 20 mls/hr 07/04/24 05:42 07/04/24 07:21 Lactated Ringers IV 08/03/24 05:41 20 mls/hr .Q24H AYUSH Administration Lidocaine HCl 0.1 ml 07/04/24 05:42 Lidocaine 1% (10mg/Ml) For Iv Start INTRADERMA 08/03/24 05:41 PER PROTOCOL PRN IV Start Midazolam HCl 2 mg 07/04/24 05:42 Midazolam 2 Mg/2 Ml Vial IV 07/04/24 23:00 ONCE PRN Pre-Op Anxiety Intake and Output 07/03/24 07/04/24 07/04/24 22:59 06:59 14:59 Intake Total 777 Output Total 0 Balance 777 Intake: IV 777 Output: Estimated Blood Loss 0 Other: Weight 67.4 kg
--- NOTE | 2024-07-04 13:01 | CA ---
Transthoracic Echo Report Name: Luisana Echevarria Age: 73 Gender: F : 1950 Exam Date: 07/04/2024 12:08 Exam Location: [facility] Ht (in): 60 Wt (lb): 148 Ordering Physician: Lola Mcfarlane Attending/Referring Phys: [id number], Denys Automatic Grinder Operator Kim Matthews RDCS Procedure CPT: Indications: CP, s/p cysto Cardiac Hx: Technical Quality: Good Contrast 1: Total Dose (mL): Contrast 2: Total Dose (mL): MEASUREMENTS (Male / Female) Normal Values 2D ECHO LV Diastolic Diameter PLAX 3.7 cm 4.2 - 5.9 / 3.9 - 5.3 cm LV Systolic Diameter PLAX 1.8 cm IVS Diastolic Thickness 1.1 cm 0.6 - 1.0 / 0.6 - 0.9 cm LVPW Diastolic Thickness 1.3 cm 0.6 - 1.0 / 0.6 - 0.9 cm LV Relative Wall Thickness 0.6 RV Internal Dim ED PLAX 2.1 cm LA Systolic Diameter LX 3.0 cm 3.0 - 4.0 / 2.7 - 3.8 cm LV Diastolic Volume MOD BP 46.7 cm??? 67 - 155 / 56 - 104 cm??? LV Systolic Volume MOD BP 16.2 cm??? 22 - 58 / 19 - 49 cm??? LV Ejection Fraction MOD BP 65.3 % >= 55 % LV Cardiac Index MOD BP 1464.0 cm???/min???m??? LV Diastolic Volume MOD 4C 53.1 cm??? LV Systolic Volume MOD 4C 17.1 cm??? LV Ejection Fraction MOD 4C 67.8 % LV Cardiac Index MOD 4C 1727.7 cm???/min???m??? LV Diastolic Length 4C 6.6 cm LV Systolic Length 4C 5.5 cm LV Diastolic Volume MOD 2C 41.7 cm??? LV Systolic Volume MOD 2C 15.3 cm??? LV Ejection Fraction MOD 2C 63.4 % LV Cardiac Index MOD 2C 1268.4 cm???/min???m??? LV Diastolic Length 2C 6.7 cm LV Systolic Length 2C 5.8 cm LA Volume 35.8 cm??? 18 - 58 / 22 - 52 cm??? LA Volume Index 20.9 cm???/m??? 16 - 28 cm???/m??? M-MODE Aortic Root Diameter MM 3.2 cm LA Systolic Diameter MM 3.8 cm LA Ao Ratio MM 1.2 AV Cusp Separation MM 2.0 cm DOPPLER MV Area PHT 2.3 cm??? Mitral E Point Velocity 76.7 cm/s Mitral A Point Velocity 103.1 cm/s Mitral E to A Ratio 0.7 MV Deceleration Time 333.4 ms TR Peak Velocity 228.5 cm/s TR Peak Gradient 20.9 mmHg FINDINGS Left Ventricle Left ventricular ejection fraction is estimated at 55-60 %. Mildly increased septal wall thickness. Mildly increased posterior wall thickness. Normal left ventricular systolic function with no obvious regional wall motion abnormalities. Left ventricular cavity size normal. Right Ventricle Normal right ventricular size and function. Right ventricular systolic pressure within normal limits. Right Atrium Normal right atrial size. Left Atrium Normal left atrial size. Mitral Valve Structurally normal mitral valve. Trace mitral regurgitation. No mitral stenosis. Aortic Valve Trileaflet aortic valve. No aortic valve stenosis or regurgitation. Tricuspid Valve Structurally normal tricuspid valve. No tricuspid stenosis. Trace tricuspid regurgitation. Pulmonic Valve Structurally normal pulmonic valve. Trace pulmonic regurgitation. No pulmonic stenosis. Pericardium No pericardial or pleural effusion. Aorta Normal size aortic root and proximal ascending aorta. CONCLUSIONS Left ventricular ejection fraction 55-60% Mild increased left ventricular wall thickness Trace mitral regurgitation Trace tricuspid regurgitation Previewed by: Dr. Javad Meng DO (Electronically Signed) Final Date: 04 July 2024 12:59
[2024-07-04] MEDS: IPRATROPIUM-ALBUTEROL 3 ML NEB INHALATION STA (14:30)
[2024-07-04 14:59] VITALS: BP 110/55; PULSE 90; RESP 14
== END | disposition home or self-care (01) ==
LOC: OR 05:46
PROVIDERS: ATTEND Urology
DX: N20.2 Calculus of kidney with calculus of ureter (principal); M81.0 Age-related osteoporosis without current pathological fracture; M19.90 Unspecified osteoarthritis, unspecified site; K21.9 Gastro-esophageal reflux disease without esophagitis; I10 Essential (primary) hypertension; F41.9 Anxiety disorder, unspecified; E78.5 Hyperlipidemia, unspecified; N28.9 Disorder of kidney and ureter, unspecified; Z91.041 Radiographic dye allergy status; Z79.1 Long term (current) use of non-steroidal anti-inflammatories (NSAID); Z79.899 Other long term (current) drug therapy
CPT/HCPCS: 52353; 93306; 84484; 82365; 74420; 74018; C1769; J1100; J2405; J2003; J3010; J1580; J0290; J3490; J2704; J2371

== ENCOUNTER → 2024-12-10 | Outpatient (CLI) | payer MEDICARE ==
--- NOTE | 2024-12-10 08:05 | USB ---
Patient History: Menarche at age 10. First Full-Term at age 22. Postmenopausal. Risk Values: Naomi 5 year model risk: 1.6%. NCI Lifetime model risk: 3.4%. Technique: Method: Targeted. Prior Study Comparison: 05/04/2023 Left MG 3D work up w/cad LT, [facility]. 12/05/2023 Left MG 3D diag mammo w/cad LT, [facility]. 06/15/2024 Bilateral MG 3D diag mammo w/cad MEG, [facility]. Findings: The upper outer quadrant of the left breast, the axilla of the left breast and the retroareolar of the left breast were scanned. Targeted ultrasound. No suspicious solid or cystic mass or fluid collections. Stable normal tissue. There is benign-appearing subcentimeter lymph node in the left axilla towards end of study. Overall Assessment: Negative, BI-RAD 1 Management: Screening Mammogram of both breasts in 6 months. Back on schedule. A clinical breast exam by your physician is recommended on an annual basis and results should be correlated with mammographic findings. This exam should not preclude additional follow-up of suspicious palpable abnormalities. Results were given to the patient verbally at the time of exam. [facility], , 12/10/2024 8:02 AM. Electronically signed and approved by: Mickey Baum M.D.
== END | disposition home or self-care (01) ==
LOC: RADUSWWP 07:48
PROVIDERS: ATTEND Internal Medicine Geriatric Medicine
DX: R92.8 Other abnormal and inconclusive findings on diagnostic imaging of breast (principal); Z78.0 Asymptomatic menopausal state

== ENCOUNTER → 2025-02-25 | Outpatient (CLI) | payer MEDICARE ==
--- NOTE | 2025-02-27 13:21 | US ---
EXAMINATION TYPE: US kidneys/renal and bladder DATE OF EXAM: 02/25/2025 COMPARISON: US 2022 CLINICAL INDICATION: Female, 74 years old with history of N20.0 CALCULUS OF KIDNEY; TECHNIQUE: Grayscale imaging of the bilateral kidneys and urinary bladder: FINDINGS: EXAM MEASUREMENTS: Right Kidney: 9.3 x 4.4 x 3.8 cm Left Kidney: 10.6 x 4.8 x 5.9 cm Right Kidney: lobulated contour, 1.1cm echogenic focus inferior pole Left Kidney: lobulated contour, hydronephrosis, multiple echogenic foci with largest measuring 0.7cm inferior pole Bladder: not fully distended, and therefore limited evaluation. IMPRESSION: 1. Moderate left hydronephrosis with bilateral echogenic foci most likely related to renal calculi. 2. Lobulated renal contour can be associated with chronic medical renal disease. [facility], , 02/27/2025 1:18 PM
== END | disposition home or self-care (01) ==
LOC: RADUSWWP 16:30
PROVIDERS: ATTEND Internal Medicine Geriatric Medicine
DX: N20.0 Calculus of kidney (principal); Q63.1 Lobulated, fused and horseshoe kidney
CPT/HCPCS: 76770